=== PATIENT | female | born 1945 | race Caucasian/White ===

== ENCOUNTER 2016-07-23 16:16 | Outpatient (CLI) | payer MEDICARE ==
[2016-07-23 16:23] LABS: #Basophils 0.1 thou/uL (0.0-0.2); #Eosinphils 0.2 thou/uL (0.0-0.7); #Lymphocytes 1.7 thou/uL (1.20-3.40); #Monocytes 0.3 thou/uL (0.11-0.59); #Neutrophils 2.7 thou/uL (1.40-6.50); %Basophils 1.1 % (0.0-1.0); %Eosinophils 4.6 % (0.0-10.0); %Lymphocytes 33.2 % (21.0-51.0); %Monocytes 6.5 % (0.0-10.0); %Neutrophils 54.6 % (42.0-75.0); Hemoglobin 10.6 g/dL (12.0-16.0); Mean Corpuscular HGB CONC 31.9 g/dL (32.0-36.0); Mean Corpuscular Hemoglobin 27.7 pg (27.0-31.0); Mean Platelet Volume 6.3 fL (7.4-10.4); Platelet Count 201 thou/uL (130-400); RBC Distribution Width 15.9 % (11.5-14.5); Red Blood Cell (RBC) Count 3.81 mill/uL (4.20-5.40)
[2016-07-23 16:38] LABS: ALT (SGPT) 8 U/L (8-55); AST (SGOT) 12 U/L (5-34); Albumin 3.6 g/dL (3.4-4.8); Alkaline Phosphatase 54 U/L (40-150); Anion Gap 13 mmol/L (10-20); BUN (Urea Nitrogen) 10 mg/dL (9.8-20.1); Bilirubin, Total 0.4 mg/dL (0.2-1.2); Calc. Creatinine Clearance 0 mL/min (70-130); Calcium 9.5 mg/dL (7.8-10.44); Carbon Dioxide 30 mmol/L (23-31); Chloride 98 mmol/L (98-107); Estimated GFR-MDRD 75; Globulin 3.2 g/dL (2.4-3.5); Glucose 119 mg/dL (83-110); Lipase 19 U/L (8-78); Potassium 3.3 mmol/L (3.5-5.1); Protein, Total 6.8 g/dL (5.8-8.1); Sodium 138 mmol/L (136-145)
== END 2016-07-23 16:17 | disposition home or self-care (01) ==
LOC: HPCALD 16:16
PROVIDERS: ATTEND Family Medicine
DX: K92.0 Hematemesis (principal)
CPT/HCPCS: 36415; 80053; 83690; 85025

== ENCOUNTER 2016-07-23 16:36 | Outpatient (CLI) | payer MEDICARE ==
--- NOTE | 2016-07-23 23:15 | RAD ---
CHEST TWO VIEWS 07/23/16 Comparison is made with a 03/28/11 study. A large lobulated right perihilar mass is present. It measures approximately 12 x 8.9 cm. It was not present in 2012. Given the patient's prior history of breast cancer and colon cancer, metastatic di sease would be the most likely diagnosis. A primary lung tumor would be the next most likely concern . The lungs are otherwise clear. The heart is borderline in size. There are no congestive findings o r pleural effusions. The trachea is midline. IMPRESSION: Large lobulated right hilar mass that is presumed to be neoplastic unless proven otherwise. A new fi nding since 2011. The findings discussed with Dr. Abad at 1655. A followup CT will define the scope of the mass bet ter but will not likely narrow the differential diagnosis. POS: HOME
== END 2016-07-23 16:37 | disposition home or self-care (01) ==
LOC: BURRAD 16:36
PROVIDERS: ATTEND Family Medicine
DX: R04.2 Hemoptysis (principal); R91.8 Other nonspecific abnormal finding of lung field
CPT/HCPCS: 36415; 71020; 80053; 83690; 85025

== ENCOUNTER 2016-07-24 08:03 | Outpatient (CLI) | payer MEDICARE ==
[2016-07-24] MEDS ORDERED: Iopamidol 370 76% 100 ML VIAL ONE (09:00)
--- NOTE | 2016-07-24 20:42 | CT ---
CT OF THE THORAX WITH CONTRAST 07/24/[address] of the chest was performed in response to a mass seen on a recent chest x-ray. Axial slice s were acquired, then coronal and sagittal reconstructions were done. There is a large solid mass in the base of the right upper lobe that measured about 8.5 x 7.7 cm in the axial plane. It compresses the right upper lobe bronchus. Pulmonary arterial branches running to the right upper lobe travel through this mass and help fed it. The margins of the mass are lobulate d. There does not appear to be significant mediastinal adenopathy, though this mass goes right up to the edge of the mediastinum. An additional finding on the study is a 3 cm spiculated mass in the left breast in the lower outer q uadrant, probably about 4 o'clock in position. There is a plane between it and the chest wall, thoug h the width is small. There is suggestion there may be a little skin thickening over the mass. No other pulmonary nodules were seen within the lungs. There are no lobar infiltrates or effusions. This was not done as a pulmonary angio protocol, but there were no gross defects in the major arteri al branches. There was no sign of aortic aneurysm or dissection. There is probably a little bit of c alcification in the left coronary system. There may be a little bit of mild left ventricular hypertr ophy. The vertebrae appeared intact with no sign of fracture or bony destruction. This study went a few sl ices into the upper abdomen. In that interval, no acute findings were encountered. IMPRESSION: Large lobulated solid mass in the right upper lobe with compression of the right upper lobe bronchus and encasing pulmonary arterial branches. Knowing the patient's clinical history and seeing a spicu lated mass in the left breast that is suspicious for neoplasia,I would wonder about the chest mass b eing metastatic disease. The chest mass is probably accessible via bronchoscopy. A slice or two even suggested there might be a small amount of mass protruding into the airway. Findings discussed with Dr. Abad at 0912 on 07/24/16. POS: HOME
== END 2016-07-24 08:04 | disposition home or self-care (01) ==
LOC: BURCT 08:03
PROVIDERS: ATTEND Family Medicine
DX: R22.2 Localized swelling, mass and lump, trunk (principal); R91.8 Other nonspecific abnormal finding of lung field
CPT/HCPCS: 71260

== ENCOUNTER 2016-10-25 11:10 | Outpatient (CLI) | payer MEDICARE, OTHER, BC ==
--- NOTE | 2016-10-25 14:27 | CT ---
HEAD CT WITH AND WITHOUT CONTRAST: Date: 10/25/16 CLINICAL HISTORY: Malignant neoplasm of the lung. Reference made to 08/09/[address] FINDINGS: Ventricular system is age-appropriate in size. There is no intracranial mass effect or midline shift . No enhancing intra-axial lesions are present. No osseous destructive lesion of the calvarium evide nt. IMPRESSION: No evidence of interval intracranial metastatic disease. POS: [facility]
--- NOTE | 2016-10-25 14:29 | CT ---
CT CHEST WITH IV CONTRAST: HISTORY: Right lung cancer. Restaging. COMPARISON: 07/24/16. FINDINGS: The large mass centered at the right hilum is again demonstrated. It is now 9.0 x 8.4 cm greatest d iameters where it was previously measured at 8.4 x 7.7 cm. There has been significant interval incr ease in peripheral atelectasis. Patchy infiltrate also projects into the anterior segment right upp er lobe. There is mild atelectasis within the left lung without focal mass apparent. There is calc ification in the arterial structures. Spiculated mass within the lateral aspect of the left breast is similar in appearance to the previous exam. The gallbladder is surgically absent. IMPRESSION: 1. Interval enlargement of the right hilar lung mass with worsening of peripheral atelectasis. 2. Left breast mass and other findings are otherwise stable. POS: [facility]
== END 2016-10-25 11:11 | disposition home or self-care (01) ==
LOC: BURCT 11:10
PROVIDERS: ATTEND Internal Medicine Hematology & Oncology
DX: C34.81 Malignant neoplasm of overlapping sites of right bronchus and lung (principal); C18.7 Malignant neoplasm of sigmoid colon; N18.2 Chronic kidney disease, stage 2 (mild); D63.1 Anemia in chronic kidney disease; J98.11 Atelectasis; N63 Unspecified lump in breast; R91.8 Other nonspecific abnormal finding of lung field; Z85.3 Personal history of malignant neoplasm of breast
CPT/HCPCS: 70470; 71260

== ENCOUNTER 2016-11-03 08:31 | Emergency (ER) | payer MEDICARE ==
[2016-11-03] MEDS ORDERED: Iopamidol 370 76% 100 ML VIAL ONE (09:00)
[2016-11-03 09:09] LABS: INR-International Normal Ratio 1.4; PTT 44.7 SEC (22.9-36.1); Prothrombin Time 17.7 SEC (12.0-14.7)
[2016-11-03 09:18] LABS: Band 3 % (5-11); Eosinophils 2 % (0-10); Hemoglobin 9.8 g/dL (12.0-16.0); Lymphocytes 10 % (21-51); MDiff Complete? YES; Mean Corpuscular HGB CONC 34.3 g/dL (32.0-36.0); Mean Corpuscular Hemoglobin 30.4 pg (27.0-31.0); Mean Corpuscular Volume 88.6 fl (81.0-99.0); Mean Platelet Volume 5.8 fL (7.4-10.4); Neutrophil 85 % (42-75); Platelet Count 183 thou/uL (130-400); RBC Distribution Width 14.2 % (11.5-14.5); Red Blood Cell (RBC) Count 3.21 mill/uL (4.20-5.40); Toxic Granulation SLIGHT; White Blood Cell (WBC) Count 10.1 thou/uL (4.8-10.8)
[2016-11-03 09:19] LABS: ALT (SGPT) 19 U/L (8-55); AST (SGOT) 18 U/L (5-34); Albumin 2.6 g/dL (3.4-4.8); Alkaline Phosphatase 90 U/L (40-150); Anion Gap 18 mmol/L (10-20); BUN (Urea Nitrogen) 16 mg/dL (9.8-20.1); Bilirubin, Total 0.8 mg/dL (0.2-1.2); CK (CPK) 20 U/L (29-168); Calc. Creatinine Clearance 0 mL/min (70-130); Calcium 8.8 mg/dL (7.8-10.44); Carbon Dioxide 32 mmol/L (23-31); Chloride 79 mmol/L (98-107); Estimated GFR-MDRD 70; Globulin 3.9 g/dL (2.4-3.5); Glucose 141 mg/dL (83-110); Protein, Total 6.5 g/dL (6.0-8.3); Sodium 126 mmol/L (136-145)
[2016-11-03 09:21] LABS: CKMB 0.5 ng/mL (0-6.6); Troponin I 0.027 ng/mL (< 0.028)
[2016-11-03 09:24] LABS: Potassium 2.6 mmol/L (3.5-5.1)
[2016-11-03 09:58] LABS: Bilirubin Negative (Negative); Blood, Urine Trace (Negative); Glucose, Urine (Dipstick) Negative (Negative); Leukocyte Negative (Negative); Nitrite Negative (Negative); Protein, Urine (Dipstick) 100 mg/dL (Neg-Trace); Urobilinogen 0.2 mg/dL (0.2-1.0); pH, Urine 5.5 (5.0-9.0)
[2016-11-03 10:03] LABS: Clarity Hazy (Clear)
[2016-11-03 10:04] LABS: Bacteria/HPF 1+ HPF (None Seen); Crystals/HPF 1+ AMORPH PHOS HPF (Negative); RBC/HPF 0-3 HPF (0-3); Squamous Epithelial 0-3 HPF (0-3); WBC/HPF 0-3 HPF (0-3)
--- NOTE | 2016-11-03 11:21 | CT ---
CT PULMONARY ANGIOGRAM WITH IV CONTRAST AND 3D MIP RECONSTRUCTIONS: Date: 11/03/16 PROVIDED CLINICAL HISTORY: Dyspnea. FINDINGS: Comparison made with the CT examinations dated 10/25/16 and 07/24/16. The heart, pericardium, and great vessels demonstrate an unchanged CT appearance. There is no eviden ce for central or segmental pulmonary embolus. Right perihilar soft tissue mass is redemonstrated. T here is interval development of air density within portions of this mass which may reflect cavitatio n or superimposed infection. There is extensive consolidation involving the right upper and right mi ddle lobes redemonstrated. The extent of the ground-glass opacity involving the right middle lobe is somewhat decreased as compared to the prior examination. Patchy somewhat nodular parenchymal opacit y is now present at the medial aspect of the superior segment of the right lower lobe. There is no evidence for pleural fluid or pneumothorax. The airway appears patent and of normal cedric eben. The visualized portions of the upper abdomen appear unchanged as compared to prior studies. Lef t-sided breast mass is redemonstrated. IMPRESSION: 1. No evidence for central or segmental pulmonary embolus. 2. Extensive parenchymal abnormality involving the right lung is redemonstrated, likely reflecting a combination of neoplasm and postobstructive pneumonitis. Development of air density within the frederick tral mass may reflect necrosis or superimposed infection. POS: [facility]
[2016-11-03] MEDS ORDERED: Piperacillin/Tazobactam 3.375 GM VIAL ONE (11:28)
[2016-11-03] MEDS ORDERED: Sodium Chloride 0.9% 100 ML ONE (11:28)
[2016-11-03] MEDS ORDERED: Potassium Chloride 20 MEQ TAB ONE (11:28)
== END 2016-11-03 11:57 | disposition short-term general hospital (02) ==
LOC: BURERS 08:31
DX: J18.9 Pneumonia, unspecified organism (principal); E87.6 Hypokalemia; E11.9 Type 2 diabetes mellitus without complications; E78.5 Hyperlipidemia, unspecified; I10 Essential (primary) hypertension
CPT/HCPCS: 36415; 51701; 71275; 80053; 81003; 81015; 82550; 82553; 83880; 84484; 85025; 85610; 85730; 87040; 93005; 94640; 94760; 96365; 96375; A4216; A4353; J2543; J7050; J7620

== ENCOUNTER 2017-04-11 10:04 | Inpatient (IN) | payer MEDICARE, OTHER ==
[2017-04-11 11:01] LABS: #Lymphocytes 0.7 thou/uL (1.20-3.40); #Monocytes 0.3 thou/uL (0.11-0.59); #Neutrophils 4.1 thou/uL (1.40-6.50); %Basophils 0.8 % (0.0-1.0); %Eosinophils 0.2 % (0.0-10.0); %Lymphocytes 13.6 % (21.0-51.0); %Monocytes 5.8 % (0.0-10.0); %Neutrophils 79.6 % (42.0-75.0); Hemoglobin 11.4 g/dL (12.0-16.0); Mean Corpuscular HGB CONC 33.4 g/dL (32.0-36.0); Mean Corpuscular Hemoglobin 27.9 pg (27.0-31.0); Mean Corpuscular Volume 83.4 fl (81.0-99.0); Mean Platelet Volume 5.5 fL (7.4-10.4); Platelet Count 136 thou/uL (130-400); White Blood Cell (WBC) Count 5.2 thou/uL (4.8-10.8)
[2017-04-11 11:03] LABS: ALT (SGPT) 18 U/L (8-55); AST (SGOT) 23 U/L (5-34); Albumin 3.8 g/dL (3.4-4.8); Alkaline Phosphatase 80 U/L (40-150); Anion Gap 18 mmol/L (10-20); BUN (Urea Nitrogen) 36 mg/dL (9.8-20.1); Bilirubin, Total 0.5 mg/dL (0.2-1.2); Calc. Creatinine Clearance 0 mL/min (70-130); Calcium 9.7 mg/dL (7.8-10.44); Carbon Dioxide 23 mmol/L (23-31); Chloride 92 mmol/L (98-107); Estimated GFR-MDRD 42; Globulin 3.9 g/dL (2.4-3.5); Glucose 178 mg/dL (83-110); Potassium 4.4 mmol/L (3.5-5.1); Protein, Total 7.7 g/dL (6.0-8.3); Sodium 129 mmol/L (136-145)
[2017-04-11 11:05] LABS: CKMB 2.9 ng/mL (0-6.6)
[2017-04-11] MEDS ORDERED: Acetaminophen 325 MG TAB PO PRN (12:36)
[2017-04-11] MEDS ORDERED: Ondansetron ODT 4 MG TAB SL PRN (12:36)
[2017-04-11] MEDS ORDERED: Ondansetron HCl/PF 4 MG/2 ML Vial IVP PRN (12:36)
[2017-04-11 12:45] VITALS: BMI 23.2
[2017-04-11] MEDS ORDERED: FLU VACC TS2017-18 (>65YR) 0.5 ML SYRINGE IM ONE (13:30)
--- NOTE | 2017-04-11 14:15 | RAD ---
RADIOGRAPH CHEST 1 VIEW: Date: 04/11/17 Time: 1024 HOURS HISTORY: 72-year-old female with dyspnea. COMPARISON: 10/01/16. FINDINGS: The previous radiograph from last year demonstrated a large right upper lobe opacity contiguous with the right hilum, representing a right upper lobe primary lung cancer, with adjacent postobstructive p neumonitis of much of the right upper lobe posteriorly. This entire complex is still present, but sma ll portions of aerated lung have now appeared within this large complex, indicating either improvemen t in the neoplastic tumor size, or improvement in the postobstructive pneumonitis, or perhaps a combi nation of both. A significant amount of opacity remains. Again noted is the right subclavian implanta ble vascular access port with distal tip in the SVC. No cardiomegaly. No pulmonary edema. No pneumoth orax. Lateral costophrenic angles are not effaced. Multiple surgical clips at the left axilla. IMPRESSION: 1. Large right perihilar and right upper lobe primary lung cancer with adjacent large region of post obstructive pneumonitis, shows interval improvement since last year's radiograph. 2. Status post left lumpectomy and left axillary lymph node dissection. 3. Implantable vascular access port. 4. No new process identified. MATEO [] POS: [facility]
[2017-04-11 17:02] LABS: Troponin I 0.145 ng/mL (< 0.028)
[2017-04-11] MEDS ORDERED: Dextrose 50% Abboject 50 ML SYRINGE SLOW IVP PRN (18:05)
[2017-04-11] MEDS ORDERED: HumaLOG 300 UNITS/3 ML VIAL SC PRN ×2 (18:05)
[2017-04-11] MEDS ORDERED: Dextrose 5% in Water 1,000 ML IV PRN (18:05)
[2017-04-11] MEDS: cloNIDine 0.1 MG TAB PO SCH (22:05)
[2017-04-11] MEDS: Metoprolol Tartrate 25 MG TAB PO SCH (22:05)
[2017-04-11] MEDS: Magnesium Oxide 400 MG TAB PO SCH (22:05)
[2017-04-11 23:01] LABS: Glucose 211 mg/dL (83-110)
[2017-04-11 23:08] LABS: Troponin I 0.126 ng/mL (< 0.028)
[2017-04-12 06:28] LABS: Anion Gap 19 mmol/L (10-20); BUN (Urea Nitrogen) 33 mg/dL (9.8-20.1); Calc. Creatinine Clearance 40 mL/min (70-130); Calcium 9.8 mg/dL (7.8-10.44); Carbon Dioxide 21 mmol/L (23-31); Chloride 94 mmol/L (98-107); Estimated GFR-MDRD 45; Glucose 119 mg/dL (83-110); Potassium 4.1 mmol/L (3.5-5.1); Sodium 130 mmol/L (136-145)
[2017-04-12 06:30] LABS: #Lymphocytes 0.7 thou/uL (1.20-3.40); #Monocytes 0.4 thou/uL (0.11-0.59); #Neutrophils 2.5 thou/uL (1.40-6.50); %Basophils 1.2 % (0.0-1.0); %Eosinophils 0.2 % (0.0-10.0); %Lymphocytes 18.1 % (21.0-51.0); %Monocytes 12.2 % (0.0-10.0); %Neutrophils 68.3 % (42.0-75.0); Band 5 % (5-11); Eosinophils 1 % (0-10); Hemoglobin 10.4 g/dL (12.0-16.0); Lymphocytes 18 % (21-51); MDiff Complete? YES; Mean Corpuscular HGB CONC 33.2 g/dL (32.0-36.0); Mean Corpuscular Hemoglobin 27.8 pg (27.0-31.0); Mean Corpuscular Volume 83.7 fl (81.0-99.0); Mean Platelet Volume 6.1 fL (7.4-10.4); Monocytes 11 % (0-10); Neutrophil 65 % (42-75); PLT Morphology Comment Appears Decreased; Platelet Count 126 thou/uL (130-400); RBC Morphology Normal; Red Blood Cell (RBC) Count 3.73 mill/uL (4.20-5.40); Small Platelets SLIGHT; White Blood Cell (WBC) Count 3.6 thou/uL (4.8-10.8)
[2017-04-12] MEDS: cloNIDine 0.1 MG TAB PO SCH ×2 (08:30→09:05)
[2017-04-12] MEDS ORDERED: Oseltamivir 75 MG CAP ONE (08:52)
[2017-04-12] MEDS ORDERED: Oseltamivir 75 MG CAP PO SCH (09:00)
[2017-04-12] MEDS ORDERED: Furosemide 20 MG TAB PO SCH (09:00)
[2017-04-12] MEDS ORDERED: PARoxetine 20 MG TAB PO SCH (09:00)
[2017-04-12] MEDS: Metoprolol Tartrate 25 MG TAB PO SCH (09:03)
[2017-04-12] MEDS: Magnesium Oxide 400 MG TAB PO SCH (09:06)
--- NOTE | 2017-04-12 11:06 | RAD ---
PORTABLE CHEST: Date: 04/12/17 An AP portable film at 0518 hours is compared to the 04/11/17 study. FINDINGS: There is still a dense right upper lobe infiltrate, though it is slightly less dense than yesterday. No new infiltrates are seen elsewhere. There is no congestive change in the vessels. The heart size i s stable. A right central line remains in place. IMPRESSION: Right upper lobe pneumonia, slightly less dense than yesterday. POS: HOME
[2017-04-12] MEDS ORDERED: Diltiazem 125 MG/25 ML ONE (11:58)
[2017-04-12] MEDS ORDERED: Sodium Chloride 0.9% 100 ML ONE (11:59)
[2017-04-12 16:17] VITALS: BP 136/65; TEMP 99.5
== END 2017-04-12 14:51 | disposition short-term general hospital (02) | DRG 194 ==
LOC: BURERS 10:04 → BURMED 11:35
PROVIDERS: ADMIT Family Medicine; ATTEND Family Medicine
DX: J11.00 Influenza due to unidentified influenza virus with unspecified type of pneumonia (principal); C34.90 Malignant neoplasm of unspecified part of unspecified bronchus or lung; I24.8 Other forms of acute ischemic heart disease; E11.9 Type 2 diabetes mellitus without complications; E78.5 Hyperlipidemia, unspecified; I10 Essential (primary) hypertension
CPT/HCPCS: 36415; 36416; 71045; 80053; 82553; 83880; 84484; 85025; 87040; 93005; 94640; 96365; A4216; J1956; J7050; J7620

== ENCOUNTER 2017-04-16 10:46 | Inpatient (IN) | payer MEDICARE, OTHER ==
[2017-04-16] MEDS ORDERED: Bisacodyl 5 MG TAB PO PRN (12:53)
[2017-04-16] MEDS: Dronedarone HCl 400 MG TAB PO SCH (18:09)
[2017-04-16] MEDS ORDERED: Oseltamivir 75 MG CAP ONE (21:43)
[2017-04-16] MEDS: Magnesium Oxide 400 MG TAB PO SCH (21:48)
[2017-04-16] MEDS: cloNIDine 0.1 MG TAB PO SCH (21:49)
[2017-04-16] MEDS: Metoprolol Tartrate 25 MG TAB PO SCH (21:50)
[2017-04-16] MEDS: Oseltamivir 75 MG CAP PO SCH (21:50)
[2017-04-17] MEDS ORDERED: Non-Formulary Item 1 EACH (Lisinopril [Zestril] 40 MG) PO SCH (09:00)
[2017-04-17] MEDS: Magnesium Oxide 400 MG TAB PO SCH ×2 (09:51→21:31)
[2017-04-17] MEDS: Lisinopril 20 MG TAB PO SCH (09:51)
[2017-04-17] MEDS: Metoprolol Tartrate 25 MG TAB PO SCH ×2 (09:51→21:32)
[2017-04-17] MEDS: Dronedarone HCl 400 MG TAB PO SCH ×2 (09:51→18:38)
[2017-04-17] MEDS: PARoxetine 20 MG TAB PO SCH (09:52)
[2017-04-17] MEDS: Oseltamivir 75 MG CAP PO SCH ×2 (09:53→21:32)
[2017-04-17] MEDS: Furosemide 20 MG TAB PO SCH (09:53)
[2017-04-17] MEDS: Aspirin 81 mg Enteric Coated Tablet PO SCH (09:53)
[2017-04-17] MEDS: metFORMIN XR 500 MG TAB PO SCH (09:53)
[2017-04-17] MEDS: Acetaminophen 325 MG TAB PO PRN (10:02)
[2017-04-17] MEDS: cloNIDine 0.1 MG TAB PO SCH ×2 (11:24→21:32)
[2017-04-17] MEDS ORDERED: FLU VACC TS2017-18 (>65YR) 0.5 ML SYRINGE IM ONE (21:00)
[2017-04-18] MEDS: Acetaminophen 325 MG TAB PO PRN ×2 (03:16→19:57)
[2017-04-18] MEDS: Furosemide 20 MG TAB PO SCH (10:52)
[2017-04-18] MEDS: metFORMIN XR 500 MG TAB PO SCH (10:52)
[2017-04-18] MEDS: Dronedarone HCl 400 MG TAB PO SCH ×2 (10:52→17:14)
[2017-04-18] MEDS: Lisinopril 20 MG TAB PO SCH (10:53)
[2017-04-18] MEDS: Magnesium Oxide 400 MG TAB PO SCH ×2 (10:53→21:21)
[2017-04-18] MEDS: Metoprolol Tartrate 25 MG TAB PO SCH ×2 (10:53→21:21)
[2017-04-18] MEDS: Aspirin 81 mg Enteric Coated Tablet PO SCH (10:54)
[2017-04-18] MEDS: PARoxetine 20 MG TAB PO SCH (10:54)
[2017-04-18] MEDS: Oseltamivir 75 MG CAP PO SCH ×2 (10:55→21:23)
[2017-04-18] MEDS: cloNIDine 0.1 MG TAB PO SCH ×2 (11:27→21:20)
[2017-04-18] MEDS: Lorazepam 0.5 MG TAB PO PRN (21:21)
[2017-04-19] MEDS: Lisinopril 20 MG TAB PO SCH (09:18)
[2017-04-19] MEDS: cloNIDine 0.1 MG TAB PO SCH ×2 (09:19→20:20)
[2017-04-19] MEDS: Aspirin 81 mg Enteric Coated Tablet PO SCH (09:20)
[2017-04-19] MEDS: metFORMIN XR 500 MG TAB PO SCH (09:20)
[2017-04-19] MEDS: Dronedarone HCl 400 MG TAB PO SCH ×2 (09:20→17:16)
[2017-04-19] MEDS: PARoxetine 20 MG TAB PO SCH (09:21)
[2017-04-19] MEDS: Metoprolol Tartrate 25 MG TAB PO SCH ×2 (09:21→20:19)
[2017-04-19] MEDS: Furosemide 20 MG TAB PO SCH (09:21)
[2017-04-19] MEDS: Magnesium Oxide 400 MG TAB PO SCH ×2 (09:24→20:20)
[2017-04-19] MEDS: Oseltamivir 75 MG CAP PO SCH ×2 (09:25→20:20)
[2017-04-19] MEDS: Acetaminophen 325 MG TAB PO PRN (09:52)
[2017-04-20] MEDS: Oseltamivir 75 MG CAP PO SCH ×2 (09:06→23:20)
[2017-04-20] MEDS: Dronedarone HCl 400 MG TAB PO SCH ×2 (09:07→17:22)
[2017-04-20] MEDS: cloNIDine 0.1 MG TAB PO SCH ×2 (09:07→20:14)
[2017-04-20] MEDS: PARoxetine 20 MG TAB PO SCH (09:07)
[2017-04-20] MEDS: Magnesium Oxide 400 MG TAB PO SCH ×2 (09:07→20:17)
[2017-04-20] MEDS: Furosemide 20 MG TAB PO SCH (09:08)
[2017-04-20] MEDS: Lisinopril 20 MG TAB PO SCH (09:08)
[2017-04-20] MEDS: Aspirin 81 mg Enteric Coated Tablet PO SCH (09:08)
[2017-04-20] MEDS: Metoprolol Tartrate 25 MG TAB PO SCH ×2 (09:08→20:17)
[2017-04-20] MEDS: metFORMIN XR 500 MG TAB PO SCH (09:09)
[2017-04-20] MEDS: Acetaminophen 325 MG TAB PO PRN (20:17)
[2017-04-20] MEDS: Lorazepam 0.5 MG TAB PO PRN (20:17)
[2017-04-20] MEDS ORDERED: Oseltamivir 75 MG CAP ONE (23:17)
[2017-04-21] MEDS: metFORMIN XR 500 MG TAB PO SCH (09:22)
[2017-04-21] MEDS: Metoprolol Tartrate 25 MG TAB PO SCH ×2 (09:22→20:33)
[2017-04-21] MEDS: Furosemide 20 MG TAB PO SCH (09:22)
[2017-04-21] MEDS: Lorazepam 0.5 MG TAB PO PRN ×2 (09:22→21:02)
[2017-04-21] MEDS: Magnesium Oxide 400 MG TAB PO SCH ×2 (09:22→20:33)
[2017-04-21] MEDS: Aspirin 81 mg Enteric Coated Tablet PO SCH (09:23)
[2017-04-21] MEDS: cloNIDine 0.1 MG TAB PO SCH ×2 (09:23→20:33)
[2017-04-21] MEDS: PARoxetine 20 MG TAB PO SCH (09:23)
[2017-04-21] MEDS: Dronedarone HCl 400 MG TAB PO SCH ×2 (09:27→17:32)
[2017-04-21] MEDS: Lisinopril 20 MG TAB PO SCH (09:27)
[2017-04-21] MEDS: Oseltamivir 75 MG CAP PO SCH (11:24)
[2017-04-21] MEDS: guaiFENesin ER 600 MG TAB PO SCH (20:33)
[2017-04-21] MEDS: Acetaminophen 325 MG TAB PO PRN (21:02)
[2017-04-22] MEDS: Dronedarone HCl 400 MG TAB PO SCH ×2 (08:56→17:27)
[2017-04-22] MEDS: Metoprolol Tartrate 25 MG TAB PO SCH ×2 (08:56→20:56)
[2017-04-22] MEDS: guaiFENesin ER 600 MG TAB PO SCH ×2 (08:57→20:55)
[2017-04-22] MEDS: Furosemide 20 MG TAB PO SCH (08:57)
[2017-04-22] MEDS: Lisinopril 20 MG TAB PO SCH (08:58)
[2017-04-22] MEDS: metFORMIN XR 500 MG TAB PO SCH (09:00)
[2017-04-22] MEDS: Magnesium Oxide 400 MG TAB PO SCH ×2 (09:00→20:55)
[2017-04-22] MEDS: cloNIDine 0.1 MG TAB PO SCH ×2 (09:00→20:56)
[2017-04-22] MEDS: Aspirin 81 mg Enteric Coated Tablet PO SCH (09:00)
[2017-04-22] MEDS: PARoxetine 20 MG TAB PO SCH (09:00)
[2017-04-22] MEDS: Lorazepam 0.5 MG TAB PO PRN ×2 (09:01→20:56)
[2017-04-23 05:14] VITALS: BMI 10.6
[2017-04-23] MEDS: PARoxetine 20 MG TAB PO SCH (08:31)
[2017-04-23] MEDS: guaiFENesin ER 600 MG TAB PO SCH ×2 (08:31→21:25)
[2017-04-23] MEDS: Magnesium Oxide 400 MG TAB PO SCH ×2 (08:31→21:25)
[2017-04-23] MEDS: Furosemide 20 MG TAB PO SCH (08:31)
[2017-04-23] MEDS: Metoprolol Tartrate 25 MG TAB PO SCH ×2 (08:32→21:30)
[2017-04-23] MEDS: Dronedarone HCl 400 MG TAB PO SCH ×2 (08:32→16:50)
[2017-04-23] MEDS: metFORMIN XR 500 MG TAB PO SCH (08:32)
[2017-04-23] MEDS: Aspirin 81 mg Enteric Coated Tablet PO SCH (08:32)
[2017-04-23] MEDS: Lisinopril 20 MG TAB PO SCH (08:32)
[2017-04-23] MEDS: cloNIDine 0.1 MG TAB PO SCH ×2 (08:33→21:25)
[2017-04-24] MEDS: guaiFENesin ER 600 MG TAB PO SCH ×2 (09:47→21:17)
[2017-04-24] MEDS: PARoxetine 20 MG TAB PO SCH (09:47)
[2017-04-24] MEDS: Aspirin 81 mg Enteric Coated Tablet PO SCH (09:47)
[2017-04-24] MEDS: Furosemide 20 MG TAB PO SCH (09:47)
[2017-04-24] MEDS: Magnesium Oxide 400 MG TAB PO SCH ×2 (09:48→21:20)
[2017-04-24] MEDS: cloNIDine 0.1 MG TAB PO SCH ×2 (09:48→21:20)
[2017-04-24] MEDS: Lisinopril 20 MG TAB PO SCH (09:49)
[2017-04-24] MEDS: metFORMIN XR 500 MG TAB PO SCH (09:50)
[2017-04-24] MEDS: Metoprolol Tartrate 25 MG TAB PO SCH ×2 (09:50→21:20)
[2017-04-24] MEDS: Dronedarone HCl 400 MG TAB PO SCH ×2 (09:51→17:45)
[2017-04-24] MEDS: Lorazepam 0.5 MG TAB PO PRN (21:17)
[2017-04-24] MEDS: Acetaminophen 325 MG TAB PO PRN (21:20)
[2017-04-25] MEDS: Dronedarone HCl 400 MG TAB PO SCH ×2 (09:16→17:54)
[2017-04-25] MEDS: metFORMIN XR 500 MG TAB PO SCH (09:17)
[2017-04-25] MEDS: Furosemide 20 MG TAB PO SCH (09:17)
[2017-04-25] MEDS: Aspirin 81 mg Enteric Coated Tablet PO SCH (09:17)
[2017-04-25] MEDS: PARoxetine 20 MG TAB PO SCH (09:18)
[2017-04-25] MEDS: guaiFENesin ER 600 MG TAB PO SCH ×2 (09:18→20:51)
[2017-04-25] MEDS: Magnesium Oxide 400 MG TAB PO SCH ×2 (09:18→20:51)
[2017-04-25] MEDS: Lisinopril 20 MG TAB PO SCH (09:19)
[2017-04-25] MEDS: Metoprolol Tartrate 25 MG TAB PO SCH ×2 (09:19→20:50)
[2017-04-25] MEDS: cloNIDine 0.1 MG TAB PO SCH ×2 (09:20→20:50)
[2017-04-25] MEDS: Lorazepam 0.5 MG TAB PO PRN (20:50)
[2017-04-25] MEDS: Acetaminophen 325 MG TAB PO PRN (20:50)
[2017-04-26] MEDS: Dronedarone HCl 400 MG TAB PO SCH ×2 (09:28→17:02)
[2017-04-26] MEDS: guaiFENesin ER 600 MG TAB PO SCH ×2 (09:28→20:48)
[2017-04-26] MEDS: PARoxetine 20 MG TAB PO SCH (09:28)
[2017-04-26] MEDS: Lisinopril 20 MG TAB PO SCH (09:28)
[2017-04-26] MEDS: metFORMIN XR 500 MG TAB PO SCH (09:29)
[2017-04-26] MEDS: Metoprolol Tartrate 25 MG TAB PO SCH ×2 (09:29→20:49)
[2017-04-26] MEDS: Aspirin 81 mg Enteric Coated Tablet PO SCH (09:30)
[2017-04-26] MEDS: cloNIDine 0.1 MG TAB PO SCH ×2 (09:30→20:50)
[2017-04-26] MEDS: Magnesium Oxide 400 MG TAB PO SCH ×2 (09:30→20:48)
[2017-04-26] MEDS: Furosemide 20 MG TAB PO SCH (09:30)
[2017-04-26] MEDS: Lorazepam 0.5 MG TAB PO PRN (20:48)
[2017-04-26] MEDS: Acetaminophen 325 MG TAB PO PRN (20:49)
[2017-04-27 06:29] VITALS: TEMP 98.1
[2017-04-27] MEDS: Metoprolol Tartrate 25 MG TAB PO SCH (09:29)
[2017-04-27] MEDS: Dronedarone HCl 400 MG TAB PO SCH (09:30)
[2017-04-27] MEDS: Magnesium Oxide 400 MG TAB PO SCH (09:30)
[2017-04-27] MEDS: Lisinopril 20 MG TAB PO SCH (09:30)
[2017-04-27] MEDS: metFORMIN XR 500 MG TAB PO SCH (09:33)
[2017-04-27] MEDS: Furosemide 20 MG TAB PO SCH (09:33)
[2017-04-27] MEDS: cloNIDine 0.1 MG TAB PO SCH (09:33)
[2017-04-27 09:34] VITALS: BP 140/65
[2017-04-27] MEDS: PARoxetine 20 MG TAB PO SCH (09:34)
[2017-04-27] MEDS: guaiFENesin ER 600 MG TAB PO SCH (09:34)
[2017-04-27] MEDS: Aspirin 81 mg Enteric Coated Tablet PO SCH (09:34)
== END 2017-04-27 11:35 | disposition home or self-care (01) | DRG 947 ==
LOC: BURMED 12:05
PROVIDERS: ADMIT Family Medicine; ATTEND Family Medicine
DX: R53.1 Weakness (principal); J96.01 Acute respiratory failure with hypoxia; J10.00 Influenza due to other identified influenza virus with unspecified type of pneumonia; I11.0 Hypertensive heart disease with heart failure; L89.151 Pressure ulcer of sacral region, stage 1; I48.91 Unspecified atrial fibrillation; E11.9 Type 2 diabetes mellitus without complications; I50.22 Chronic systolic (congestive) heart failure; E87.1 Hypo-osmolality and hyponatremia; E78.5 Hyperlipidemia, unspecified; Z85.118 Personal history of other malignant neoplasm of bronchus and lung; Z85.3 Personal history of malignant neoplasm of breast; Z85.038 Personal history of other malignant neoplasm of large intestine; Z88.2 Allergy status to sulfonamides; Z91.041 Radiographic dye allergy status; Z87.891 Personal history of nicotine dependence
CPT/HCPCS: 36416; 94640; G8978-GP-CJ; G8979-GP-CI; G8987-GO-CK; G8988-GO-CI; J7620

== ENCOUNTER 2017-07-10 13:23 | Outpatient (CLI) | payer MEDICARE, OTHER ==
--- NOTE | 2017-07-10 15:58 | RAD ---
CERVICAL SPINE FIVE VIEWS: Date: 07-10-17 FINDINGS: Flexion, extension, and neutral views were obtained, as well as AP and open mouth views. There is disc space narrowing at C5-6 and C6-7 with anterior osteophytes. With flexion of the cervica l spine there was no undue slippage of any vertebrae. Minimal 1-2 mm offsets are seen as would be exp ected, at each level. There is no abnormal motion between the dens and anterior arch of C1. The soft tissues are normal in thickness. IMPRESSION: 1. Degenerative changes, most prominent at C5-6 and C6-7. 2. No significant movement of vertebrae between flexion and extension. POS: HOME
== END 2017-07-10 13:24 | disposition home or self-care (01) ==
LOC: BURRAD 13:23
PROVIDERS: ATTEND Neurological Surgery
DX: M54.2 Cervicalgia (principal); M47.892 Other spondylosis, cervical region
CPT/HCPCS: 72050

== ENCOUNTER 2017-09-15 15:31 | Outpatient (CLI) | payer MEDICARE, OTHER ==
--- NOTE | 2017-09-15 16:29 | RAD ---
THORACIC SPINE TWO VIEWS: INDICATIONS: Mid thoracic pain. There is also a history of lung cancer in this patient. COMPARISON: Lateral chest exam from 07/23/2016. FINDINGS: There is now mild anterior wedging of three consecutive mid thoracic vertebrae, probably T7, T8, and T9. These wedge deformities have occurred since 07/23/2016. The anterior wedging is most pronounced at T9 with loss of anterior height estimated at 30% to 40% at this level. Anterior height loss at T 7 and T8 are estimated at 20% to 25%. The other thoracic vertebrae maintain height. No other interval change noted. POS: [facility]
== END 2017-09-15 15:32 | disposition home or self-care (01) ==
LOC: BURRAD 15:31
PROVIDERS: ATTEND Family Medicine
DX: M54.6 Pain in thoracic spine (principal)
CPT/HCPCS: 72070

== ENCOUNTER 2017-10-28 11:08 | Inpatient (IN) | payer MEDICARE, OTHER ==
[2017-10-28] MEDS ORDERED: Calcium Carbonate 500 MG ChewTAB PO PRN (14:10)
[2017-10-28] MEDS ORDERED: Milk Of Magnesia 30 ML UDCUP PO PRN (14:10)
[2017-10-28] MEDS ORDERED: Bisacodyl 10 MG SUPP PR PRN (14:10)
[2017-10-28] MEDS ORDERED: Dextrose 50% Abboject 50 ML SYRINGE SLOW IVP PRN (14:15)
[2017-10-28] MEDS ORDERED: Dextrose 5% in Water 1,000 ML IV PRN (14:15)
[2017-10-28] MEDS ORDERED: HumaLOG 300 UNITS/3 ML VIAL SC PRN ×2 (14:15)
[2017-10-28 14:50] VITALS: BMI 23.2
[2017-10-28 14:52] LABS: #Basophils 0.1 thou/uL (0.0-0.2); #Eosinphils 0.1 thou/uL (0.0-0.7); #Lymphocytes 0.8 thou/uL (1.20-3.40); #Monocytes 0.4 thou/uL (0.11-0.59); #Neutrophils 4.4 thou/uL (1.40-6.50); %Basophils 1.3 % (0.0-1.0); %Eosinophils 1.2 % (0.0-10.0); %Lymphocytes 14.2 % (21.0-51.0); %Monocytes 7.4 % (0.0-10.0); Hemoglobin 10.5 g/dL (12.0-16.0); Mean Corpuscular HGB CONC 35.1 g/dL (32.0-36.0); Mean Corpuscular Hemoglobin 28.2 pg (27.0-31.0); Mean Corpuscular Volume 80.4 fL (78.0-98.0); Platelet Count 185 thou/uL (130-400); RBC Distribution Width 13.3 % (11.5-14.5); Red Blood Cell (RBC) Count 3.71 mill/uL (4.20-5.40); White Blood Cell (WBC) Count 5.8 thou/uL (4.8-10.8)
[2017-10-28 15:10] LABS: ALT (SGPT) 9 U/L (8-55); AST (SGOT) 14 U/L (5-34); Alkaline Phosphatase 68 U/L (40-150); Anion Gap 16 mmol/L (10-20); BUN (Urea Nitrogen) 14 mg/dL (9.8-20.1); Bilirubin, Total 0.4 mg/dL (0.2-1.2); Calc. Creatinine Clearance 46 mL/min (70-130); Carbon Dioxide 18 mmol/L (23-31); Chloride 102 mmol/L (98-107); Estimated GFR-MDRD 52; Globulin 3.4 g/dL (2.4-3.5); Glucose 125 mg/dL (83-110); Potassium 5.2 mmol/L (3.5-5.1); Protein, Total 7.4 g/dL (6.0-8.3); Sodium 131 mmol/L (136-145)
[2017-10-28 15:35] LABS: Clarity Clear (Clear); Glucose, Urine (Dipstick) Negative (Negative); Leukocyte Trace (Negative); Nitrite Negative (Negative); Protein, Urine (Dipstick) Trace mg/dL (Neg-Trace); Urobilinogen 0.2 mg/dL (0.2-1.0)
[2017-10-28 15:36] LABS: Bilirubin Negative (Negative); Blood, Urine Trace (Negative)
[2017-10-28 15:42] LABS: Bacteria/HPF Rare-Few HPF (None Seen); RBC/HPF 0-3 HPF (0-3); Squamous Epithelial 0-3 HPF (0-3); WBC/HPF 0-3 HPF (0-3)
[2017-10-28] MEDS ORDERED: Sodium Chloride 0.9% 10 ML ONE (16:08)
[2017-10-28] MEDS: Cefepime 1 GM in Sodium Chloride 0.9% 100 ML IVPB SCH (16:20)
[2017-10-28] MEDS ORDERED: traMADol HCl 50 MG TAB PO PRN (16:37)
[2017-10-28] MEDS: Magnesium Oxide 400 MG TAB PO SCH (17:35)
[2017-10-28] MEDS: metFORMIN XR 500 MG TAB PO SCH (17:36)
[2017-10-28] MEDS: Dronedarone HCl 400 MG TAB PO SCH (17:36)
[2017-10-28] MEDS ORDERED: Prevnar 13-Val Conj/PF 0.5 ML SYRINGE IM ONE (18:15)
[2017-10-28] MEDS: Lidocaine 5% Patch TD SCH (20:25)
[2017-10-28] MEDS: Simvastatin 20 MG TAB PO SCH (20:26)
[2017-10-28] MEDS: Metoprolol Tartrate 25 MG TAB PO SCH (20:26)
[2017-10-28] MEDS: cloNIDine 0.1 MG TAB PO SCH (20:27)
[2017-10-28] MEDS ORDERED: Famotidine 20 MG TAB PO SCH (21:00)
[2017-10-28] MEDS ORDERED: cloNIDine 0.1 MG TAB PO PRN (21:32)
[2017-10-28] MEDS ORDERED: cloNIDine 0.1 MG TAB PO SCH (21:45)
--- NOTE | 2017-10-28 22:18 | HP ---
CHIEF COMPLAINT: Multidrug-resistant urinary tract infection. HISTORY OF PRESENT ILLNESS: Ms. Gunderson is a 72-year-old female with past medical history o f recurrent urinary tract infections and non-small cell carcinoma of the lung, which is currently in remission followed by Dr. Blanca Golden, who went in for a checkup recently and complained of dysuria. Apparently, patient complained of dysuria at a previous visit and was treated with 2 weeks of cefdi caleb. During this most recent visit and urine collection, the patient was given another round of cefd inir, but I was contacted by Dr. Golden. Regarding her concern and we were going to see her in my [facility] for further recommendations. However, the final urine culture came back yesterday showing Pseu domonas resistant to all oral medications tested other than Cipro and Levaquin. The patient is aller gic to SULFA and takes Multaq, which contraindicates the use of fluoroquinolones. Therefore, the pat ient was recommended direct admission for IV antibiotic treatment. The patient says that she feels to be at her baseline. She does have some intermittent dyspnea due t o the presence of the lung mass, but per her last PET scan, is not growing/inactive. She has had jaylene e lower abdominal discomfort from [id number]. The patient has had intermittent dysuria. No gross hematuria. Denies fever. Denies voiding dysfunction. She feels her condition to be at her baseline with some dyspnea at rest but does not require oxygen. She does have a chronic cough. Her most recent PET scan showed inactivity, but her symptoms are due to the presence of the mass. She also had a recent compression fracture and underwent kyphoplasty approximately 2 weeks ago with Weston Leal. PAST MEDICAL HISTORY: 1. Non-small cell carcinoma of the lung on the right. 2. Left breast cancer, T2 N3 M0, triple negative, status post chemo and radiation in 2009. 3. Hypertension. 4. Anxiety. 5. Adenocarcinoma of sigmoid colon, T3 N0 M0. 6. Type 2 diabetes. 7. Hyperlipidemia. 8. Recurrent urinary tract infections. 9. Microalbuminuria. 10. Iron-deficiency anemia. 11. Paroxysmal atrial fibrillation, not a candidate for anticoagulation. 12. Systolic congestive heart failure. 13. Moderate aortic regurgitation. 14. Anemia of chronic disease. PAST SURGICAL HISTORY: 1. Cholecystectomy, 2006. 2. Hysterectomy, 1988. 3. Left breast lumpectomy and axillary node dissection, 07/2010. 4. Laparoscopic right hemicolectomy for severe appendicitis, 12/2010. 5. Laparoscopic low-anterior resection for colon cancer, 03/2011. 6. Kyphoplasty, 10/2017, Dr. Leal. ALLERGIES: IODINATED CONTRAST, SULFA. SOCIAL HISTORY: Nonsmoker. Denies alcohol or illicit drug use. Patient lives alone in [place], s a very active [id number] who lives here locally and daughter who lives within a couple of hour s of her. FAMILY HISTORY: Her father is and had a history of diabetes. She had a younger brother wit h brain tumor, older brother with chronic anemia, and a daughter who had cervical cancer. CURRENT MEDICATIONS: 1. Lidoderm 5% patch 1 patch q.12 hours p.r.n., May apply it 3 at a time. 2. Paroxetine 20 mg 1 p.o. daily. 3. Lisinopril 40 mg one p.o. daily. 4. Metformin ER 500 mg 4 p.o. daily with evening meal. 5. Tramadol 50 mg 1 p.o. q.6 hours p.r.n. pain. 6. Metoprolol 50 mg 1 p.o. b.i.d. 7. Lovastatin 20 mg 1 p.o. daily. 8. Prilosec OTC 20 mg p.o. daily. 9. Potassium chloride ER 20 mEq p.o. daily. 10. Clonidine 0.1 mg p.o. b.i.d. 11. Multaq 400 mg 1 p.o. b.i.d. 12. Lasix 40 mg p.o. daily. 13. DuoNeb 1 inhalation 4 times daily p.r.n. REVIEW OF SYSTEMS: General: Patient denies fever. She has some fatigue at baseline, but any increa se as of late. Denies any focal weakness. HEENT: Denies vision changes, ear pain, rhinorrhea, sore throat. Cardiovascular: Denies chest pain, palpitations, orthopnea, or PND. Respiratory: Dyspnea , non-O2 requiring with productive cough in the a.m. No hemoptysis. Gastrointestinal: Denies nause a, vomiting, diarrhea, constipation, abdominal pain. Genitourinary: Positive dysuria. Denies gross hematuria. No incomplete emptying symptoms. Intermittent low volume urinary incontinence at [facility]. Hematologic: Denies easy bleeding or bruising. Lymphatic: Denies swelling. PHYSICAL EXAMINATION: VITAL SIGNS: Temperature 97.7, heart rate 56, respirations 22, O2 sat 96% on room air, blood pressur e 193/76. GENERAL: Well-developed, thin female in no acute distress. Alert and oriented x3. HEENT: Normocephalic, atraumatic. Pupils equal, round, reactive to light and accommodation. Extrao cular muscles intact. Nares are patent without discharge. Tongue protrudes in the midline. NECK: Supple without lymphadenopathy, thyromegaly, JVD, or bruit. HEART: Regular rate and rhythm with distant heart sounds. LUNGS: Coarse breath sounds in all 4 gloria. No wheezing or crackles. Slightly increased work of b reathing and an occasional cough. ABDOMEN: Positive bowel sounds in all four quadrants. Soft, nontender, nondistended. No masses, gu arding, or rebound tenderness. EXTREMITIES: No cyanosis, clubbing, edema. NEUROLOGIC: Cranial nerves II-XII grossly intact. No focal deficits. LABORATORY DATA: White blood cell count 5.8, hemoglobin 10.5, hematocrit 29.9 with normal MCV, MCH, MCHC, platelets 185. Sodium 131, potassium 5.2, chloride 102, bicarb 18, BUN 14, creatinine 1.04, gl ucose 125, calcium 9.0. LFTs normal. Urinalysis significant for trace blood and trace leukocyte est erase, no wbc/rbc or squamous epithelial cells. Rare few bacteria. Blood cultures x2 are pending. Urine culture from 10/21/2017 shows Pseudomonas greater than 100,000, sensitive to AMIKACIN, CEFEPIME , CEFTAZIDIME, CIPRO, GENTAMICIN, LEVOFLOXACIN, MEROPENEM, ZOSYN, TOBRAMYCIN. ASSESSMENT AND PLAN: 1. Multidrug resistant urinary tract infection, Pseudomonas. Patient has had intermittent symptoms and is now having Pseudomonas in the urine. She has already been treated with a round of cefdinir as an outpatient. Urinalysis has been recollected and we will repeat a urine culture. I have started her on cefepime 1 gram q.12 hours for now pending those culture results. We will perform blood cultu res x2. We will repeat a CBC and a basic metabolic profile in the morning. It is possible, then aft er talking with Dr. Stark, who have put a call into the patient might be a candidate to get off th e Multaq, in which case we could use Cipro or Levaquin. The better case scenario would be if her rep eat culture was negative since her most recent urinalysis today actually looks better than in the out patient setting. 2. Hyperkalemia. I am holding the patient's potassium for now. 3. Hypertension. Patient's blood pressure is elevated, that she really does not want to be here in the hospital. We will continue her on an antihypertensive regimen and give her clonidine p.r.n. 4. Non-small cell lung cancer. This mass is present but is currently inactive. We will touch base with her oncologist on a p.r.n. basis. We will give O2 p.r.n. Should she have problems with her O2 sat. She is fine on room air at this point. We will continue DuoNeb p.r.n. 5. Hyperlipidemia. Patient will be continued on her statin therapy. 6. Type 2 diabetes. Patient will have Accu-Cheks q.a.c. and at bedtime and we will put her on a mil d and bedtime correction algorithm with Humalog. 7. Normocytic anemia. This is chronic and unchanged. 8. Paroxysmal atrial fibrillation. We will continue the patient on Multaq for now. Again, I have a call into Dr. Stark requesting his advice regarding this medicine going forward. She is not a ca ndidate for anticoagulation. 9. Prophylaxis. Patient's PPI will be continued and sequential compression devices will be placed. 10. Code status. Patient desires FULL CODE status at this time.
[2017-10-29] MEDS: Cefepime 1 GM in Sodium Chloride 0.9% 100 ML IVPB SCH ×2 (03:51→15:40)
[2017-10-29 05:24] LABS: #Basophils 0.1 thou/uL (0.0-0.2); #Eosinphils 0.1 thou/uL (0.0-0.7); #Lymphocytes 0.9 thou/uL (1.20-3.40); #Monocytes 0.4 thou/uL (0.11-0.59); #Neutrophils 2.9 thou/uL (1.40-6.50); %Basophils 2.1 % (0.0-1.0); %Eosinophils 2.4 % (0.0-10.0); %Lymphocytes 19.5 % (21.0-51.0); %Monocytes 9.2 % (0.0-10.0); %Neutrophils 66.8 % (42.0-75.0); Hemoglobin 9.6 g/dL (12.0-16.0); Mean Corpuscular HGB CONC 36.4 g/dL (32.0-36.0); Mean Corpuscular Hemoglobin 28.6 pg (27.0-31.0); Mean Corpuscular Volume 78.5 fL (78.0-98.0); Mean Platelet Volume 5.5 fL (7.4-10.4); Platelet Count 151 thou/uL (130-400); RBC Distribution Width 13.3 % (11.5-14.5); Red Blood Cell (RBC) Count 3.34 mill/uL (4.20-5.40); White Blood Cell (WBC) Count 4.4 thou/uL (4.8-10.8)
[2017-10-29] MEDS: Lidocaine Patch Removal 1 EACH TOP SCH (05:54)
[2017-10-29 06:04] LABS: Anion Gap 11 mmol/L (10-20); BUN (Urea Nitrogen) 16 mg/dL (9.8-20.1); Calc. Creatinine Clearance 51 mL/min (70-130); Calcium 8.5 mg/dL (7.8-10.44); Carbon Dioxide 21 mmol/L (23-31); Chloride 104 mmol/L (98-107); Estimated GFR-MDRD 59; Glucose 93 mg/dL (83-110); Potassium 5.1 mmol/L (3.5-5.1); Sodium 131 mmol/L (136-145)
[2017-10-29] MEDS ORDERED: Non-Formulary Item 1 EACH (Potassium Chloride [Potassium Chloride] 20 MEQ) PO SCH (09:00)
[2017-10-29] MEDS: PARoxetine 20 MG TAB PO SCH (09:31)
[2017-10-29] MEDS: Dronedarone HCl 400 MG TAB PO SCH ×2 (09:31→17:53)
[2017-10-29] MEDS: cloNIDine 0.1 MG TAB PO SCH ×2 (09:31→21:17)
[2017-10-29] MEDS: Lisinopril 20 MG TAB PO SCH (09:32)
[2017-10-29] MEDS: Magnesium Oxide 400 MG TAB PO SCH ×2 (09:32→17:53)
[2017-10-29] MEDS: Furosemide 20 MG TAB PO SCH (09:32)
[2017-10-29] MEDS: Metoprolol Tartrate 25 MG TAB PO SCH ×2 (09:33→21:18)
[2017-10-29] MEDS ORDERED: Amlodipine 5 MG TAB PO ONE (09:45)
[2017-10-29] MEDS: metFORMIN XR 500 MG TAB PO SCH (17:52)
[2017-10-29] MEDS: Lidocaine 5% Patch TD SCH (17:55)
[2017-10-29] MEDS: Simvastatin 20 MG TAB PO SCH (21:17)
[2017-10-29] MEDS: Lorazepam 0.5 MG TAB PO PRN (21:18)
[2017-10-30] MEDS: Cefepime 1 GM in Sodium Chloride 0.9% 100 ML IVPB SCH ×2 (03:49→15:43)
[2017-10-30] MEDS: Lidocaine Patch Removal 1 EACH TOP SCH (05:16)
[2017-10-30] MEDS: Metoprolol Tartrate 25 MG TAB PO SCH ×2 (09:34→21:17)
[2017-10-30] MEDS: PARoxetine 20 MG TAB PO SCH (09:35)
[2017-10-30] MEDS: Dronedarone HCl 400 MG TAB PO SCH ×2 (09:35→17:49)
[2017-10-30] MEDS: Furosemide 20 MG TAB PO SCH (09:35)
[2017-10-30] MEDS: Magnesium Oxide 400 MG TAB PO SCH ×2 (09:36→17:49)
[2017-10-30] MEDS: Lisinopril 20 MG TAB PO SCH (09:39)
[2017-10-30] MEDS: Amlodipine 5 MG TAB PO SCH (09:40)
[2017-10-30] MEDS: cloNIDine 0.1 MG TAB PO SCH ×2 (09:40→21:17)
[2017-10-30] MEDS: Acetaminophen 325 MG TAB PO PRN (11:46)
[2017-10-30] MEDS: Lidocaine 5% Patch TD SCH (17:47)
[2017-10-30] MEDS: metFORMIN XR 500 MG TAB PO SCH (17:48)
[2017-10-30] MEDS: Lorazepam 0.5 MG TAB PO PRN (21:16)
[2017-10-30] MEDS: Simvastatin 20 MG TAB PO SCH (21:16)
[2017-10-31] MEDS: Cefepime 1 GM in Sodium Chloride 0.9% 100 ML IVPB SCH (04:12)
[2017-10-31] MEDS: Lidocaine Patch Removal 1 EACH TOP SCH (06:10)
[2017-10-31] MEDS: Dronedarone HCl 400 MG TAB PO SCH (08:39)
[2017-10-31] MEDS: Metoprolol Tartrate 25 MG TAB PO SCH (08:40)
[2017-10-31] MEDS: Magnesium Oxide 400 MG TAB PO SCH (08:40)
[2017-10-31] MEDS: cloNIDine 0.1 MG TAB PO SCH (08:40)
[2017-10-31] MEDS: Furosemide 20 MG TAB PO SCH (08:41)
[2017-10-31] MEDS: Lisinopril 20 MG TAB PO SCH (08:42)
[2017-10-31] MEDS: PARoxetine 20 MG TAB PO SCH (08:42)
[2017-10-31] MEDS: Amlodipine 5 MG TAB PO SCH (08:43)
[2017-10-31] MEDS: Acetaminophen 325 MG TAB PO PRN (08:45)
[2017-10-31 13:03] VITALS: BP 140/95; TEMP 98.2
--- NOTE | 2017-10-31 13:31 | DIS ---
ADMISSION DIAGNOSES: 1. Symptomatic Pseudomonas urinary tract infection. 2. Hypertension. 3. Non-small cell lung cancer. 4. Paroxysmal atrial fibrillation. DISCHARGE DIAGNOSES: 1. Symptomatic Pseudomonas urinary tract infection. 2. Hypertension. 3. Non-small cell lung cancer. 4. Paroxysmal atrial fibrillation. ATTENDING PHYSICIAN: Dr. Paola Abad PROCEDURES: 1. CBC with white count from the day of admission 5.8, hemoglobin 10.5, hematocrit 29.9, platelets 1 85. 2. Chemistry profile from the day of admission significant for potassium of 5.2, sodium of 131. Thi s subsequently corrected to a potassium of 5.1 with holding potassium supplementation. The sodium of 131 is chronic over a greater than 1 year period. 3. Urinalysis on admission was significant for trace blood and trace leukocyte esterase as well as r are few bacteria. 4. Urine culture from the day of admission grew out Pseudomonas aeruginosa, pansensitive. 5. Blood culture x2 negative for growth at 48 hours. HISTORY AND PHYSICAL EXAMINATION: Please see dictated report from the date of admission. HOSPITAL COURSE: Ms. Gunderson is a 72-year-old female patient with non-small cell lung cance r followed by Dr. Blanca Goldne and a recent compression fracture status post kyphoplasty and a cervic al nerve ablation by Dr. Leal who in the outpatient setting over the past month and a half compl ained of dysuria. The patient had been treated for urinary tract infection by her oncologist with a 2-week course of cefdinir as this would not interact with her Multaq. At her most recent visit with Dr. Golden, a urinalysis was performed which grew out Pseudomonas aeruginosa that was pansensitive. However, the patient's Multaq therapy contraindicated the use of Cipro and Levaquin, which were the only oral agents that it could be treated with. This culture was performed on 10/21/2017. Dr. Meera johnson empirically treated Ms. Gunderson with another 2-week course of cefdinir and she had started that whe n we contacted her. She, however, was still symptomatic with intermittent dysuria. She had not been experiencing any fever. She had had some lower suprapubic discomfort from time to time. The decisi on was therefore made to admit the patient for IV antibiotic therapy. The patient upon admission was afebrile and did not have a leukocytosis. Her cultures were reperformed with results as per above. She was placed empirically on IV cefepime 1 gram q.12 hours. As her urine culture did again grow th e same organism, we will continue out a course of 7 days of this therapy and possibly even repeat her urine culture at the time before her discharge. On the date of discharge, she is feeling well. She denies any pain or dysuria. She has a history of non-small cell lung cancer. She was placed on DuoNeb q.i.d. while in the hospit al and her respiratory status actually seem to improve with less cough and less sputum production. The patient with a history of hypertension and was notably hypertensive during her hospital admission . We added amlodipine 5 mg daily, and we are giving her clonidine p.r.n. for SBP greater than 180. This seems to have improved and stabilized her blood pressure. We also thought there might be a bolivar le anxiety component to this as well, and we have ordered lorazepam p.r.n. History of paroxysmal atrial fibrillation. The patient has had at least 2 admissions once in 10/2016 and then again in the early spring of this year in which she had atrial fibrillation with rapid vent ricular response requiring IV rate control. She is not a candidate for anticoagulation and was place d on Multaq therapy last summer. She had discontinued this on her own and this was restarted early t his spring. Due to the fact that she still has this inactive, but present lung mass, it has been rec ommended that the patient stay on Multaq therapy going forward to maintain her rhythm control. DISPOSITION: Transfer to swing bed unit for 7-day course of IV antibiotics. CONDITION: Good. MEDICATIONS: 1. Acetaminophen 650 mg p.o. q.4. p.r.n. 2. DuoNeb 3 mL nebs q.i.d. scheduled. 3. Amlodipine 5 mg p.o. daily. 4. Dulcolax 10 mg MN q.24h. p.r.n. 5. Tums 1000 mg p.o. q.4h. p.r.n. 6. Cefepime 1 gram IV every 12 hours. 7. Catapres 0.1 mg p.o. b.i.d. 8. Catapres 0.1 mg p.o. b.i.d. p.r.n. SBP greater than 180 or DBP greater than 100. 9. Multaq 400 mg p.o. b.i.d. 10. Lasix 40 mg p.o. daily. 11. Glucagon 1 mg IM p.r.n. 12. Humalog sliding scale mild and bedtime algorithm with Accu-Cheks q.a.c. and at bedtime. 13. Lidoderm 5% patch transdermal q.24 hours, off for 12 hours. 14. Zestril 40 mg p.o. daily. 15. Ativan 0.5 mg p.o. q.4h. p.r.n. anxiety. 16. Milk of Magnesia 30 mL p.o. daily p.r.n. constipation. 17. Magnesium oxide 400 mg p.o. b.i.d. 18. Glucophage-XR 500 mg 4 p.o. q.p.m. 19. Lopressor 50 mg p.o. b.i.d. 20. Protonix 40 mg p.o. daily. 21. Paxil 20 mg p.o. daily. 22. Zocor 10 mg p.o. at bedtime. 23. Tramadol 50 mg p.o. q.i.d. p.r.n. pain. 24. Holding potassium chloride, secondary to hyperkalemia. DISPOSITION: The patient will follow up with me in the clinic approximately 10-14 days after her swi ng bed discharge.
== END 2017-10-31 13:07 | disposition swing bed (61) | DRG 690 ==
LOC: BURMED 13:20
PROVIDERS: ADMIT Family Medicine; ATTEND Family Medicine
DX: N39.0 Urinary tract infection, site not specified (principal); C34.91 Malignant neoplasm of unspecified part of right bronchus or lung; I50.22 Chronic systolic (congestive) heart failure; Z79.2 Long term (current) use of antibiotics; Z16.24 Resistance to multiple antibiotics; B96.5 Pseudomonas (aeruginosa) (mallei) (pseudomallei) as the cause of diseases classified elsewhere; Z88.2 Allergy status to sulfonamides; Z85.3 Personal history of malignant neoplasm of breast; E11.9 Type 2 diabetes mellitus without complications; I48.0 Paroxysmal atrial fibrillation; D50.9 Iron deficiency anemia, unspecified; E78.5 Hyperlipidemia, unspecified; F41.9 Anxiety disorder, unspecified; Z92.21 Personal history of antineoplastic chemotherapy; Z92.3 Personal history of irradiation; I11.0 Hypertensive heart disease with heart failure; D63.8 Anemia in other chronic diseases classified elsewhere; I35.1 Nonrheumatic aortic (valve) insufficiency; E87.5 Hyperkalemia; Z79.4 Long term (current) use of insulin
CPT/HCPCS: 36415; 36416; 80048; 80053; 81001; 85025; 87040; 87077; 87086; 87186; 90471; 90670; A4216; G0009; J0692; J7050; J7620

== ENCOUNTER 2017-10-31 13:16 | Inpatient (IN) | payer MEDICARE, OTHER ==
[2017-10-31] MEDS ORDERED: Bisacodyl 10 MG SUPP PR PRN (13:55)
[2017-10-31] MEDS ORDERED: Milk Of Magnesia 30 ML UDCUP PO PRN (13:56)
[2017-10-31] MEDS ORDERED: Calcium Carbonate 500 MG ChewTAB PO PRN (13:56)
[2017-10-31] MEDS ORDERED: Dextrose 50% Abboject 50 ML SYRINGE SLOW IVP PRN (13:57)
[2017-10-31] MEDS ORDERED: Dextrose 5% in Water 1,000 ML IV PRN (13:57)
[2017-10-31] MEDS ORDERED: HumaLOG 300 UNITS/3 ML VIAL SC PRN ×2 (13:58)
[2017-10-31] MEDS ORDERED: Lidocaine 5% Patch TD SCH ×2 (14:00→18:00)
[2017-10-31] MEDS ORDERED: traMADol HCl 50 MG TAB PO PRN (14:04)
[2017-10-31] MEDS ORDERED: cloNIDine 0.1 MG TAB PO PRN (14:05)
[2017-10-31] MEDS: Cefepime 1 GM in Sodium Chloride 0.9% 100 ML IVPB SCH (15:30)
[2017-10-31] MEDS: metFORMIN XR 500 MG TAB PO SCH (16:51)
[2017-10-31] MEDS: Dronedarone HCl 400 MG TAB PO SCH (16:52)
[2017-10-31] MEDS: Magnesium Oxide 400 MG TAB PO SCH (16:52)
[2017-10-31] MEDS: Metoprolol Tartrate 25 MG TAB PO SCH (20:17)
[2017-10-31] MEDS: Simvastatin 20 MG TAB PO SCH (20:17)
[2017-10-31] MEDS: Lorazepam 0.5 MG TAB PO PRN (20:18)
[2017-10-31] MEDS: cloNIDine 0.1 MG TAB PO SCH (20:18)
[2017-11-01] MEDS: Cefepime 1 GM in Sodium Chloride 0.9% 100 ML IVPB SCH ×2 (03:59→16:00)
[2017-11-01] MEDS ORDERED: Lidocaine Patch Removal 1 EACH TOP SCH (06:00)
[2017-11-01] MEDS: cloNIDine 0.1 MG TAB PO SCH ×2 (09:22→20:47)
[2017-11-01] MEDS: PARoxetine 20 MG TAB PO SCH (09:28)
[2017-11-01] MEDS: Dronedarone HCl 400 MG TAB PO SCH ×2 (09:28→18:25)
[2017-11-01] MEDS: Magnesium Oxide 400 MG TAB PO SCH ×2 (09:28→18:25)
[2017-11-01] MEDS: Furosemide 20 MG TAB PO SCH (09:29)
[2017-11-01] MEDS: Lisinopril 20 MG TAB PO SCH (09:29)
[2017-11-01] MEDS: Metoprolol Tartrate 25 MG TAB PO SCH ×2 (09:29→20:46)
[2017-11-01] MEDS: Amlodipine 5 MG TAB PO SCH (09:30)
[2017-11-01] MEDS: metFORMIN XR 500 MG TAB PO SCH (18:25)
[2017-11-01] MEDS: Lorazepam 0.5 MG TAB PO PRN (20:47)
[2017-11-01] MEDS: Simvastatin 20 MG TAB PO SCH (20:47)
[2017-11-02] MEDS: Cefepime 1 GM in Sodium Chloride 0.9% 100 ML IVPB SCH ×2 (04:04→15:50)
[2017-11-02] MEDS: Lisinopril 20 MG TAB PO SCH (09:25)
[2017-11-02] MEDS: PARoxetine 20 MG TAB PO SCH (09:30)
[2017-11-02] MEDS: Furosemide 20 MG TAB PO SCH (09:31)
[2017-11-02] MEDS: Amlodipine 5 MG TAB PO SCH (09:31)
[2017-11-02] MEDS: Metoprolol Tartrate 25 MG TAB PO SCH ×2 (09:31→21:01)
[2017-11-02] MEDS: Magnesium Oxide 400 MG TAB PO SCH ×2 (09:32→17:29)
[2017-11-02] MEDS: cloNIDine 0.1 MG TAB PO SCH ×2 (09:32→21:03)
[2017-11-02] MEDS: Dronedarone HCl 400 MG TAB PO SCH ×2 (09:33→17:29)
[2017-11-02] MEDS: Acetaminophen 325 MG TAB PO PRN (09:38)
[2017-11-02] MEDS: metFORMIN XR 500 MG TAB PO SCH (17:29)
[2017-11-02] MEDS: Simvastatin 20 MG TAB PO SCH (21:03)
[2017-11-02] MEDS: Lorazepam 0.5 MG TAB PO PRN (21:06)
[2017-11-02 23:50] VITALS: BMI 22.8
[2017-11-03] MEDS: Cefepime 1 GM in Sodium Chloride 0.9% 100 ML IVPB SCH ×2 (03:39→17:00)
[2017-11-03] MEDS: Magnesium Oxide 400 MG TAB PO SCH ×2 (08:24→17:01)
[2017-11-03] MEDS: Dronedarone HCl 400 MG TAB PO SCH ×2 (08:24→17:01)
[2017-11-03] MEDS: Furosemide 20 MG TAB PO SCH (09:08)
[2017-11-03] MEDS: Amlodipine 5 MG TAB PO SCH (09:08)
[2017-11-03] MEDS: Metoprolol Tartrate 25 MG TAB PO SCH ×2 (09:09→20:41)
[2017-11-03] MEDS: cloNIDine 0.1 MG TAB PO SCH ×2 (09:09→20:41)
[2017-11-03] MEDS: Lisinopril 20 MG TAB PO SCH (09:10)
[2017-11-03] MEDS: PARoxetine 20 MG TAB PO SCH (09:10)
[2017-11-03] MEDS: metFORMIN XR 500 MG TAB PO SCH (17:03)
[2017-11-03] MEDS: Lorazepam 0.5 MG TAB PO PRN (20:41)
[2017-11-03] MEDS: Simvastatin 20 MG TAB PO SCH (20:41)
[2017-11-04] MEDS: Cefepime 1 GM in Sodium Chloride 0.9% 100 ML IVPB SCH (04:07)
[2017-11-04 06:08] VITALS: BP 157/60; TEMP 97.7
[2017-11-04] MEDS: Metoprolol Tartrate 25 MG TAB PO SCH (09:18)
[2017-11-04] MEDS: Acetaminophen 325 MG TAB PO PRN (09:18)
[2017-11-04] MEDS: Magnesium Oxide 400 MG TAB PO SCH (09:18)
[2017-11-04] MEDS: Dronedarone HCl 400 MG TAB PO SCH (09:18)
[2017-11-04] MEDS: PARoxetine 20 MG TAB PO SCH (09:19)
[2017-11-04] MEDS: cloNIDine 0.1 MG TAB PO SCH (09:19)
[2017-11-04] MEDS: Lisinopril 20 MG TAB PO SCH (09:19)
[2017-11-04] MEDS: Furosemide 20 MG TAB PO SCH (09:19)
[2017-11-04] MEDS: Amlodipine 5 MG TAB PO SCH (09:20)
== END 2017-11-04 13:25 | disposition home or self-care (01) | DRG 690 ==
LOC: BURMED 13:16
PROVIDERS: ADMIT Family Medicine; ATTEND Family Medicine
DX: N39.0 Urinary tract infection, site not specified (principal); C34.91 Malignant neoplasm of unspecified part of right bronchus or lung; B96.5 Pseudomonas (aeruginosa) (mallei) (pseudomallei) as the cause of diseases classified elsewhere; I48.0 Paroxysmal atrial fibrillation; E11.9 Type 2 diabetes mellitus without complications; I10 Essential (primary) hypertension
CPT/HCPCS: 36416; A4216; J0692; J7050; J7620

== ENCOUNTER 2018-01-12 09:41 | Outpatient (CLI) | payer MEDICARE, OTHER | END 2018-01-12 09:42 | disposition home or self-care (01) | LOC: BURCT 09:41 → BURLABSP 09:42 | PROVIDERS: ATTEND Internal Medicine Hematology & Oncology | DX: C34.81 Malignant neoplasm of overlapping sites of right bronchus and lung (principal); C18.7 Malignant neoplasm of sigmoid colon; D50.8 Other iron deficiency anemias; N18.2 Chronic kidney disease, stage 2 (mild); M80.00XD Age-related osteoporosis with current pathological fracture, unspecified site, subsequent encounter for fracture with routine healing; Z85.3 Personal history of malignant neoplasm of breast | CPT/HCPCS: 36415; 82565 ==

== ENCOUNTER 2018-01-23 10:53 | Outpatient (CLI) | payer MEDICARE, OTHER ==
--- NOTE | 2018-01-23 15:10 | RAD ---
CHEST TWO VIEWS: Date: 01-23-18 Comparison: 04-12-17, 01-20-[address] FINDINGS: The opacity of the right upper lobe is less than it was in March. The left lung is essentially erika r. The right lower lobe seems well inflated. The right middle lobe is hard to assess. There are no la rge effusions. The heart size is stable. IMPRESSION: Improvement since March. No new findings of concern since the recent CT. POS: HOME
== END 2018-01-23 10:54 | disposition home or self-care (01) ==
LOC: BURRAD 10:53
PROVIDERS: ATTEND Internal Medicine Hematology & Oncology
DX: C34.81 Malignant neoplasm of overlapping sites of right bronchus and lung (principal); C18.7 Malignant neoplasm of sigmoid colon; D50.8 Other iron deficiency anemias; N18.2 Chronic kidney disease, stage 2 (mild); D63.1 Anemia in chronic kidney disease; M80.00XD Age-related osteoporosis with current pathological fracture, unspecified site, subsequent encounter for fracture with routine healing; Z85.3 Personal history of malignant neoplasm of breast
CPT/HCPCS: 71046

== ENCOUNTER 2018-03-05 07:02 | Inpatient (IN) | payer MEDICARE, OTHER ==
[2018-03-05] MEDS ORDERED: Nitroglycerin 2% Ointment 1 INCH/1 GM Packet ONE (07:24)
[2018-03-05] MEDS ORDERED: methylPREDNISolone Sod Succ/PF 125 MG/2 ML VIAL ONE (07:24)
[2018-03-05 07:31] LABS: #Basophils 0.1 thou/uL (0.0-0.2); #Eosinphils 0.2 thou/uL (0.0-0.7); #Lymphocytes 1.6 thou/uL (1.20-3.40); #Monocytes 0.7 thou/uL (0.11-0.59); #Neutrophils 4.2 thou/uL (1.40-6.50); %Basophils 1.6 % (0.0-1.0); %Eosinophils 3.1 % (0.0-10.0); %Lymphocytes 22.8 % (21.0-51.0); %Monocytes 10.6 % (0.0-10.0); Hemoglobin 12.5 g/dL (12.0-16.0); Mean Corpuscular HGB CONC 34.8 g/dL (32.0-36.0); Mean Corpuscular Hemoglobin 28.1 pg (27.0-31.0); Mean Corpuscular Volume 80.7 fL (78.0-98.0); Mean Platelet Volume 5.8 fL (7.4-10.4); Platelet Count 236 thou/uL (130-400); Red Blood Cell (RBC) Count 4.46 mill/uL (4.20-5.40); White Blood Cell (WBC) Count 6.8 thou/uL (4.8-10.8)
[2018-03-05 07:44] LABS: ALT (SGPT) 11 U/L (8-55); AST (SGOT) 16 U/L (5-34); Albumin 4.6 g/dL (3.4-4.8); Alkaline Phosphatase 59 U/L (40-150); Anion Gap 17 mmol/L (10-20); BUN (Urea Nitrogen) 18 mg/dL (9.8-20.1); Bilirubin, Total 0.6 mg/dL (0.2-1.2); CK (CPK) 84 U/L (29-168); Calc. Creatinine Clearance 0 mL/min (70-130); Calcium 10.4 mg/dL (7.8-10.44); Carbon Dioxide 26 mmol/L (23-31); Chloride 93 mmol/L (98-107); Estimated GFR-MDRD 41; Globulin 3.9 g/dL (2.4-3.5); Glucose 170 mg/dL (83-110); Potassium 4.5 mmol/L (3.5-5.1); Protein, Total 8.5 g/dL (6.0-8.3); Sodium 131 mmol/L (136-145)
[2018-03-05] MEDS ORDERED: Doxycycline Hyclate 100 MG TAB ONE (08:02)
[2018-03-05] MEDS ORDERED: cefTRIAXone\\ROCEPHIN 2 GM VIAL ONE (08:02)
[2018-03-05] MEDS ORDERED: Sodium Chloride 0.9% 100 ML ONE (08:02)
[2018-03-05] MEDS ORDERED: Ondansetron ODT 4 MG TAB SL PRN (09:54)
[2018-03-05] MEDS ORDERED: Ondansetron PF 4 MG/2 ML Vial IVP PRN (09:54)
[2018-03-05] MEDS ORDERED: Doxycycline Hyclate 100 MG TAB PO ONE (10:00)
[2018-03-05] MEDS ORDERED: Lorazepam 0.5 MG TAB PO PRN (17:54)
[2018-03-05] MEDS ORDERED: Dextrose 50% Abboject 50 ML SYRINGE SLOW IVP PRN (17:55)
[2018-03-05] MEDS ORDERED: Dextrose 5% in Water 1,000 ML IV PRN (17:55)
--- NOTE | 2018-03-05 18:44 | RAD ---
PORTABLE CHEST 03/05/18 An AP portable film at 1858 is compared with an 01/23/18 study. A consolidation of the right upper lobe is present which is denser today than it was in January. The amount of volume loss here is about the same. No new infiltrates are seen elsewhere. A central line enters via the right subclavian route as before. The heart size is stable. There are no effusions or congestive changes. IMPRESSION: Right upper lobe consolidation slightly denser POS: HOME
[2018-03-05] MEDS: Metoprolol Tartrate 25 MG TAB PO SCH (20:44)
[2018-03-05] MEDS: cloNIDine 0.1 MG TAB PO SCH (20:44)
[2018-03-05] MEDS: Doxycycline Hyclate 100 MG TAB PO SCH (20:44)
[2018-03-05] MEDS: Enoxaparin Sodium 40 MG/0.4 ML SYRINGE SC SCH (20:45)
[2018-03-05] MEDS: HumaLOG 300 UNITS/3 ML VIAL SC PRN (20:55)
[2018-03-05] MEDS: Acetaminophen 325 MG TAB PO PRN (20:56)
[2018-03-05] MEDS ORDERED: Prevnar 13-Val Conj/PF 0.5 ML SYRINGE IM ONE (21:00)
[2018-03-05] MEDS: Zolpidem Tartrate 5 MG TAB PO PRN (22:18)
--- NOTE | 2018-03-06 02:53 | HP ---
CHIEF COMPLAINT: Cough and shortness of breath. HISTORY OF PRESENT ILLNESS: Ms. Gunderson is a 72-year-old female with past medical history of ekf-[id number]-agmn carcinoma of the right lung in remission, who presents to the emergency room with worsening cough and sputum production over the last 24 hours. She states her symptoms started approximately 1 week ago and had been progressive. Denies any fever, nausea, vomiting, or diarrhea. She has a history of ioz-migjw-rvmv carcinoma of the lung on the right and is followed by Dr. Blanca Golden and has had no growth of her lesion or evidence of metabolic activity on PET scan in recent months. She denies sick contacts. She is up-to-date on her immunizations. She did have influenza earlier in April of this year. In the emergency room, a chest x-ray revealed no acute infiltrates with a stable mass in the right chest. Her O2 sat was in the 70s on admission, but quickly improved with administration of neb, methylprednisolone, and oxygen. Since her transfer to the floor, she is feeling much improved. She is not on oxygen therapy at home and is currently stable at 2.5 L per minute. PAST MEDICAL HISTORY: 1. Rkw-zijfu-uqjs carcinoma of the lung on the right. 2. Left breast cancer, T2 N3 M0, triple-negative, status post chemo and radiation in 2009. 3. Hypertension. 4. Anxiety. 5. Adenocarcinoma of sigmoid colon, T3 N0 M0. 6. Type 2 diabetes. 7. Hyperlipidemia. 8. Recurrent urinary tract infections. 9. Microalbuminuria. 10. Iron-deficiency anemia. 11. Paroxysmal atrial fibrillation, not a candidate for anticoagulation, but on antiarrhythmic therapy. 12. Systolic congestive heart failure. 13. Moderate aortic regurgitation. 14. Anemia of chronic disease. PAST SURGICAL HISTORY: 1. Cholecystectomy in 2006. 2. Hysterectomy in 1988. 3. Left breast lumpectomy and axillary node dissection in July 2010. 4. Laparoscopic right hemicolectomy for severe appendicitis in December 2010. 5. Laparoscopic low anterior resection for colon cancer in March 2011. 6. Kyphoplasty in October 2017, Dr. Leal. ALLERGIES: TO IODINATED CONTRAST AND SULFA. SOCIAL HISTORY: Nonsmoker. Denies alcohol or illicit drug use. The patient lives alone in [place], but has a very active lfmvxnne-mo-wne, who lives here locally and daughter who lives within a couple of hours of her. FAMILY HISTORY: Her father is and had a history of diabetes. She had a younger brother with brain tumor, older brother with chronic anemia, and daughter who had cervical cancer. CURRENT MEDICATIONS: 1. Clonidine 0.1 mg p.o. b.i.d. 2. Magnesium oxide 400 mg p.o. b.i.d. with meals. 3. Zestril 40 mg p.o. daily. 4. Paxil 20 mg p.o. daily. 5. Multaq 400 mg p.o. b.i.d. 6. Metoprolol tartrate 50 mg p.o. b.i.d. 7. Norvasc 5 mg p.o. daily. 8. Potassium chloride 20 mEq p.o. daily. 9. Lasix 60 mg p.o. daily. 10. Metformin 2 tablets p.o. daily, 500 mg. 11. Perforomist (formoterol) 20 mcg inhaled daily. 12. Lorazepam 0.5 mg p.o. b.i.d. p.r.n. REVIEW OF SYSTEMS: GENERAL: Denies fever, chills, fatigue above her baseline, or focal weakness. HEENT: Denies nasal congestion, rhinorrhea, sore throat, or ear pain. Denies vision changes. CARDIOVASCULAR: Denies chest pain, palpitations, orthopnea, or paroxysmal nocturnal dyspnea. RESPIRATORY: Denies hemoptysis. Positive cough and dyspnea as well as yellow thick sputum production. GASTROINTESTINAL: Denies nausea, vomiting, diarrhea, melena, hematochezia, or abdominal pain. LYMPHATIC: Denies swelling. HEMATOLOGIC: Denies any bleeding. GENITOURINARY: Denies dysuria, decreased urinary output, foul-smelling urine, frequency. ENDOCRINE: The patient with a history of diabetes and reports no recent hyperglycemia. PHYSICAL EXAMINATION: VITAL SIGNS: In the emergency room on arrival, O2 saturation 77% on room air, respirations 36, blood pressure 220/99, pulse 74. Increased O2 sat to 97% on facemask. On my exam, temperature 98.3, pulse 71, respirations 18, 96% on 2 L per minute per nasal cannula, blood pressure 159/60. GENERAL: Well-developed, well-nourished female, alert and oriented x3 , in no acute distress. HEENT: Normocephalic and atraumatic. Pupils equally round and reactive to light and accommodation. Extraocular muscles intact. Nares are patent without discharge. Tongue protrudes in the midline. NECK: Supple without lymphadenopathy, thyromegaly, JVD, or bruits. HEART: Regular rate and rhythm. Normal S1, S2 with distant heart sounds. No murmurs, clicks, rubs, or gallops. LUNGS: Coarse breath sounds throughout with rhonchi, most pronounced in the right lung base. No wheezing. No respiratory distress. ABDOMEN: Positive bowel sounds in all 4 quadrants. Soft, nontender, and nondistended. No masses, guarding, or rebound tenderness. EXTREMITIES: No cyanosis, clubbing, or edema. NEUROLOGIC: Cranial nerves 2 through 12 grossly intact with no focal deficits. PSYCHIATRIC: Mood and affect appropriate. LABORATORY DATA: White count 6.8, hemoglobin 12.5, hematocrit 36.0, platelets 236. Sodium 131, potassium 4.5, chloride 93, bicarbonate 26, BUN 18, creatinine 1.28, glucose 170, calcium 10.4. Normal LFTs. Troponin I less than 0.01. B-type natriuretic peptide is 498.6, which is lower than past values. Albumin 4.6. Subsequent Accu-Chek 171 and 218 at 1633 hours this afternoon. IMAGING: Chest x-ray, radiology read is pending, shows a stable right lung mass with no obvious infiltrates. ASSESSMENT AND PLAN: 1. Acute hypoxic respiratory failure secondary to bronchitis with bronchospasm. We will get influenza A and B swab. Place patient on empiric antibiotic therapy with Rocephin and doxycycline due to potential medication interactions with her Multaq. The patient will be continued on oxygen and weaned as she improves. She was given a dose of Solu-Medrol in the ER and improved, but I do not hear wheezing currently on her exam. We will hold off on scheduling that at this time. Continue neb treatments q.4 hours p.r.n. for wheezing and shortness of breath and we will continue the patient on her home formoterol. If the patient is unable to wean from oxygen, we will need to qualify her for home oxygen. We will repeat CBC, basic metabolic profile, and a chest x-ray in the morning. 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 Rivas, and we consider to see him as an outpatient at discharge. 2. Hyponatremia. 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 She does not currently appear to be fluid overloaded on exam. Again, we will repeat her metabolic profile in the morning. 3. Type 2 diabetes: We will hold the patient's metformin given her increased creatinine and possibility of needing contrast during admission. We will order sliding scale bedtime algorithm with lispro correction and Accu-Cheks q.a.c. and at bedtime. Diabetic diet. 4. Acute kidney injury: The patient will hydrate overnight. We will repeat her lab in the morning. 5. Hypertension: The patient will be continued on her home regimen and monitored. 6. Anxiety: I have continued her lorazepam p.r.n. 7. History of rgg-dhbbq-vjlm carcinoma of the lung on the right. Followed by Dr. Golden. We will review radiology report of the chest x-ray. 8. Hyperlipidemia. The patient will be continued on her statin therapy. 9. History of iron-deficiency anemia and anemia of chronic disease. At present , her hemoglobin and hematocrit are normal. When she is hydrated, we will need to look at this again, so I have repeated her CBC in the morning. 10. Paroxysmal atrial fibrillation, currently regular rate and rhythm. She is not a candidate for anticoagulation. We will continue her Multaq and watch out for potential pofc-ze-pelt interactions. 11. Systolic congestive heart failure: The patient appears to be euvolemic at present or may be slightly dry. We will continue her current diuretic regimen, just have her hydrate overnight and repeat her metabolic profile in the morning. Her BNP is a little elevated, but it has certainly been elevated beyond this in the past. 12. History of thoracic compression fracture, status post kyphoplasty. The patient denies any need for pain medications at home, but she has been unable to sleep, so I will order her some p.r.n. zolpidem for tonight. 13. Prophylaxis: With history of malignancy and risk for falls, I would rather not do SCDs and do Lovenox prophylaxis instead. She has had no evidence of recent bleeding. We will place the patient on Pepcid. 14. Code status: The patient desires full code, but does want advance directives to remove care in the event of a terminal illness. Job ID: [id number] MTDD
[2018-03-06 05:30] LABS: #Lymphocytes 0.6 thou/uL (1.20-3.40); #Monocytes 0.2 thou/uL (0.11-0.59); #Neutrophils 4.2 thou/uL (1.40-6.50); %Basophils 0.4 % (0.0-1.0); %Lymphocytes 11.2 % (21.0-51.0); %Monocytes 3.5 % (0.0-10.0); %Neutrophils 84.9 % (42.0-75.0); Hemoglobin 10.4 g/dL (12.0-16.0); Mean Corpuscular HGB CONC 34.5 g/dL (32.0-36.0); Platelet Count 175 thou/uL (130-400); RBC Distribution Width 12.9 % (11.5-14.5); Red Blood Cell (RBC) Count 3.72 mill/uL (4.20-5.40)
[2018-03-06 05:39] LABS: Anion Gap 14 mmol/L (10-20); BUN (Urea Nitrogen) 27 mg/dL (9.8-20.1); Calc. Creatinine Clearance 43 mL/min (70-130); Calcium 9.3 mg/dL (7.8-10.44); Carbon Dioxide 23 mmol/L (23-31); Chloride 95 mmol/L (98-107); Estimated GFR-MDRD 48; Glucose 158 mg/dL (83-110); Potassium 4.7 mmol/L (3.5-5.1); Sodium 127 mmol/L (136-145)
[2018-03-06] MEDS ORDERED: Furosemide 40 MG TAB PO SCH (09:00)
[2018-03-06] MEDS: Arformoterol 15 MCG/2 ML NEB NEB SCH (09:55)
[2018-03-06] MEDS: Amlodipine 5 MG TAB PO SCH (10:00)
[2018-03-06] MEDS: Metoprolol Tartrate 25 MG TAB PO SCH ×2 (10:04→20:20)
[2018-03-06] MEDS: PARoxetine 20 MG TAB PO SCH (10:04)
[2018-03-06] MEDS: Doxycycline Hyclate 100 MG TAB PO SCH ×2 (10:04→20:17)
[2018-03-06] MEDS: Lisinopril 20 MG TAB PO SCH (10:05)
[2018-03-06] MEDS: Furosemide 40 MG TAB PO SCH (10:05)
[2018-03-06] MEDS: Magnesium Oxide 400 MG TAB PO SCH ×2 (10:05→18:43)
[2018-03-06] MEDS: predniSONE 20 MG TAB PO SCH (10:06)
[2018-03-06] MEDS: Dronedarone HCl 400 MG TAB PO SCH ×2 (10:06→18:43)
[2018-03-06] MEDS: Potassium Chloride 20 MEQ TAB PO SCH (10:06)
[2018-03-06] MEDS: cloNIDine 0.1 MG TAB PO SCH ×2 (10:07→20:17)
[2018-03-06] MEDS: HumaLOG 300 UNITS/3 ML VIAL SC PRN ×3 (10:16→20:44)
[2018-03-06] MEDS: cefTRIAXone\\ROCEPHIN 1 GM in Sodium Chloride 0.9% 100 ML IVPB SCH (11:05)
--- NOTE | 2018-03-06 11:21 | RAD ---
CHEST TWO VIEWS: 03/06/2018 0957 HOURS COMPARISON: 03/05/2018 FINDINGS: An AP portable film again shows the right upper lobe consolidation, which is approximately the same a s yesterday. There may be a little more lingular streaking than before. The lungs are otherwise sim ilar. The right central line remains in place. Mild cardiomegaly is about the same as before. Ther e are no large effusions. IMPRESSION: Similar findings to yesterday. At most, there may be a little more lingular streaking today. POS: HOME
[2018-03-06] MEDS: Enoxaparin Sodium 40 MG/0.4 ML SYRINGE SC SCH (20:16)
[2018-03-06] MEDS: Zolpidem Tartrate 5 MG TAB PO PRN (20:20)
[2018-03-07 05:46] LABS: Anion Gap 14 mmol/L (10-20); BUN (Urea Nitrogen) 31 mg/dL (9.8-20.1); Calc. Creatinine Clearance 43 mL/min (70-130); Calcium 9.1 mg/dL (7.8-10.44); Carbon Dioxide 25 mmol/L (23-31); Chloride 96 mmol/L (98-107); Estimated GFR-MDRD 48; Glucose 107 mg/dL (83-110); Potassium 4.6 mmol/L (3.5-5.1); Sodium 130 mmol/L (136-145)
[2018-03-07] MEDS: Acetaminophen 325 MG TAB PO PRN (06:23)
[2018-03-07] MEDS: Lisinopril 20 MG TAB PO SCH (09:39)
[2018-03-07] MEDS: Metoprolol Tartrate 25 MG TAB PO SCH ×2 (09:39→21:14)
[2018-03-07] MEDS: predniSONE 20 MG TAB PO SCH (09:42)
[2018-03-07] MEDS: cloNIDine 0.1 MG TAB PO SCH ×2 (09:42→21:15)
[2018-03-07] MEDS: Doxycycline Hyclate 100 MG TAB PO SCH ×2 (09:42→21:14)
[2018-03-07] MEDS: Magnesium Oxide 400 MG TAB PO SCH ×2 (09:42→17:31)
[2018-03-07] MEDS: Amlodipine 5 MG TAB PO SCH (09:42)
[2018-03-07] MEDS: Arformoterol 15 MCG/2 ML NEB NEB SCH (09:43)
[2018-03-07] MEDS: Potassium Chloride 20 MEQ TAB PO SCH (09:43)
[2018-03-07] MEDS: Dronedarone HCl 400 MG TAB PO SCH ×2 (09:43→17:31)
[2018-03-07] MEDS: PARoxetine 20 MG TAB PO SCH (09:43)
[2018-03-07] MEDS: Furosemide 40 MG TAB PO SCH (09:45)
[2018-03-07] MEDS: cefTRIAXone\\ROCEPHIN 1 GM in Sodium Chloride 0.9% 100 ML IVPB SCH (10:59)
[2018-03-07] MEDS: HumaLOG 300 UNITS/3 ML VIAL SC PRN ×2 (17:30→21:23)
[2018-03-07] MEDS: Enoxaparin Sodium 40 MG/0.4 ML SYRINGE SC SCH (21:14)
[2018-03-07] MEDS: Zolpidem Tartrate 5 MG TAB PO PRN (21:14)
[2018-03-08] MEDS: Arformoterol 15 MCG/2 ML NEB NEB SCH (07:41)
[2018-03-08] MEDS: cefTRIAXone\\ROCEPHIN 1 GM in Sodium Chloride 0.9% 100 ML IVPB SCH (07:46)
[2018-03-08] MEDS: Magnesium Oxide 400 MG TAB PO SCH ×2 (07:47→17:13)
[2018-03-08] MEDS: Dronedarone HCl 400 MG TAB PO SCH ×2 (07:47→17:13)
[2018-03-08] MEDS: cloNIDine 0.1 MG TAB PO SCH (09:03)
[2018-03-08] MEDS: Metoprolol Tartrate 25 MG TAB PO SCH (09:03)
[2018-03-08] MEDS: predniSONE 20 MG TAB PO SCH (09:03)
[2018-03-08] MEDS: Furosemide 40 MG TAB PO SCH (09:04)
[2018-03-08] MEDS: Potassium Chloride 20 MEQ TAB PO SCH (09:04)
[2018-03-08] MEDS: PARoxetine 20 MG TAB PO SCH (09:05)
[2018-03-08] MEDS: Lisinopril 20 MG TAB PO SCH (09:05)
[2018-03-08] MEDS: Amlodipine 5 MG TAB PO SCH (09:09)
[2018-03-08] MEDS: Doxycycline Hyclate 100 MG TAB PO SCH (09:20)
--- NOTE | 2018-03-08 11:01 | RAD ---
CHEST 2 VIEWS: Date: 03/08/18 Comparison made with the prior two studies of 03/05/18 and 03/06/18. FINDINGS: The right upper lobe has cleared further. There also is a little less streaking in the lingula in the last two days. No new infiltrates were seen elsewhere. No large effusions were present. The cardiac size is stable. IMPRESSION: Infiltrates clearing, with improvement over the last 2 days. POS: HOME
[2018-03-08] MEDS: HumaLOG 300 UNITS/3 ML VIAL SC PRN ×2 (13:15→18:06)
[2018-03-08 14:46] VITALS: BMI 23.8
[2018-03-08 18:46] VITALS: BP 177/80; TEMP 98.2
== END 2018-03-08 19:14 | disposition swing bed (61) | DRG 193 ==
LOC: BURERS 07:02 → BURMED 08:21
PROVIDERS: ADMIT Family Medicine; ATTEND Family Medicine
DX: J18.1 Lobar pneumonia, unspecified organism (principal); J96.01 Acute respiratory failure with hypoxia; I50.22 Chronic systolic (congestive) heart failure; E22.2 Syndrome of inappropriate secretion of antidiuretic hormone; N17.9 Acute kidney failure, unspecified; I13.0 Hypertensive heart and chronic kidney disease with heart failure and stage 1 through stage 4 chronic kidney disease, or unspecified chronic kidney disease; J20.9 Acute bronchitis, unspecified; F41.9 Anxiety disorder, unspecified; I48.0 Paroxysmal atrial fibrillation; N18.3 Chronic kidney disease, stage 3 (moderate); E11.22 Type 2 diabetes mellitus with diabetic chronic kidney disease; I35.1 Nonrheumatic aortic (valve) insufficiency; D63.8 Anemia in other chronic diseases classified elsewhere; E78.5 Hyperlipidemia, unspecified; Z85.038 Personal history of other malignant neoplasm of large intestine; Z90.89 Acquired absence of other organs; Z98.890 Other specified postprocedural states; Z90.49 Acquired absence of other specified parts of digestive tract; Z90.710 Acquired absence of both cervix and uterus; Z85.118 Personal history of other malignant neoplasm of bronchus and lung; Z79.84 Long term (current) use of oral hypoglycemic drugs; Z92.21 Personal history of antineoplastic chemotherapy; Z85.3 Personal history of malignant neoplasm of breast; Z92.3 Personal history of irradiation; Z79.899 Other long term (current) drug therapy; Z88.2 Allergy status to sulfonamides; Z91.041 Radiographic dye allergy status
CPT/HCPCS: 36415; 36416; 71045; 71046; 80048; 80053; 82550; 83880; 84484; 85025; 87040; 87804; 93005; 94640; 94760; 96365; 96375; J0696; J1650; J2920; J2930; J7050; J7506; J7620

== ENCOUNTER 2018-03-08 19:26 | Inpatient (IN) | payer MEDICARE, OTHER ==
[2018-03-08] MEDS ORDERED: Ondansetron ODT 4 MG TAB PO PRN (23:25)
[2018-03-08] MEDS ORDERED: Bisacodyl 5 MG TAB PO PRN (23:25)
[2018-03-08] MEDS ORDERED: Dextrose 5% in Water 1,000 ML IV PRN (23:29)
[2018-03-08] MEDS ORDERED: Dextrose 50% Abboject 50 ML SYRINGE SLOW IVP PRN ×2 (23:29)
[2018-03-08] MEDS ORDERED: HumaLOG 300 UNITS/3 ML VIAL SC PRN (23:29)
[2018-03-08] MEDS ORDERED: Acetaminophen 325 MG TAB PO PRN (23:29)
[2018-03-08] MEDS ORDERED: Lorazepam 0.5 MG TAB PO PRN (23:29)
[2018-03-08] MEDS ORDERED: cefTRIAXone\\ROCEPHIN 1 GM VIAL IVPB SCH (23:30)
[2018-03-08] MEDS ORDERED: cefTRIAXone\\ROCEPHIN 1 GM in Sodium Chloride 0.9% 100 ML IVPB SCH (23:59)
[2018-03-08] MEDS ORDERED: Metoprolol Tartrate 25 MG TAB PO SCH (23:59)
[2018-03-09] MEDS ORDERED: HumaLOG 300 UNITS/3 ML VIAL SC PRN (00:30)
[2018-03-09 05:44] LABS: ALT (SGPT) 17 U/L (8-55); AST (SGOT) 12 U/L (5-34); Albumin 3.6 g/dL (3.4-4.8); Alkaline Phosphatase 42 U/L (40-150); Anion Gap 13 mmol/L (10-20); BUN (Urea Nitrogen) 28 mg/dL (9.8-20.1); Bilirubin, Total 0.3 mg/dL (0.2-1.2); Calc. Creatinine Clearance 40 mL/min (70-130); Calcium 9.5 mg/dL (7.8-10.44); Carbon Dioxide 27 mmol/L (23-31); Chloride 93 mmol/L (98-107); Estimated GFR-MDRD 44; Globulin 2.9 g/dL (2.4-3.5); Glucose 95 mg/dL (83-110); Potassium 4.4 mmol/L (3.5-5.1); Protein, Total 6.5 g/dL (6.0-8.3); Sodium 129 mmol/L (136-145)
[2018-03-09] MEDS: predniSONE 20 MG TAB PO SCH (07:59)
[2018-03-09] MEDS: Magnesium Oxide 400 MG TAB PO SCH ×2 (07:59→18:07)
[2018-03-09] MEDS: Potassium Chloride 20 MEQ TAB PO SCH (08:00)
[2018-03-09] MEDS: metFORMIN 500 MG TAB PO SCH (08:00)
[2018-03-09] MEDS: Dronedarone HCl 400 MG TAB PO SCH ×2 (08:00→18:07)
[2018-03-09] MEDS ORDERED: Non-Formulary Item 1 EACH (Formoterol Fumarate [Perforomist] 20 MCG) IH SCH (09:00)
[2018-03-09] MEDS: Furosemide 20 MG TAB PO SCH (09:21)
[2018-03-09] MEDS: Lisinopril 20 MG TAB PO SCH (09:22)
[2018-03-09] MEDS: cloNIDine 0.1 MG TAB PO SCH ×2 (09:22→21:10)
[2018-03-09] MEDS: Amlodipine 5 MG TAB PO SCH (09:23)
[2018-03-09] MEDS: Arformoterol 15 MCG/2 ML NEB NEB SCH (09:23)
[2018-03-09] MEDS: PARoxetine 20 MG TAB PO SCH (09:24)
[2018-03-09] MEDS: Doxycycline Hyclate 100 MG TAB PO SCH ×2 (09:24→21:19)
[2018-03-09] MEDS: cefTRIAXone\\ROCEPHIN 1 GM in Sodium Chloride 0.9% 100 ML IVPB SCH (09:27)
[2018-03-09] MEDS: Metoprolol Tartrate 25 MG TAB PO SCH ×2 (09:32→21:10)
[2018-03-09] MEDS: HumaLOG 300 UNITS/3 ML VIAL SC PRN ×2 (13:17→18:06)
[2018-03-09 16:35] VITALS: BMI 23.8
[2018-03-09] MEDS: Zolpidem Tartrate 5 MG TAB PO PRN ×2 (21:09)
[2018-03-09] MEDS: Enoxaparin Sodium 40 MG/0.4 ML SYRINGE SC SCH (21:10)
[2018-03-10] MEDS: PARoxetine 20 MG TAB PO SCH (09:33)
[2018-03-10] MEDS: cefTRIAXone\\ROCEPHIN 1 GM in Sodium Chloride 0.9% 100 ML IVPB SCH (09:33)
[2018-03-10] MEDS: predniSONE 20 MG TAB PO SCH (09:33)
[2018-03-10] MEDS: Lisinopril 20 MG TAB PO SCH (09:34)
[2018-03-10] MEDS: metFORMIN 500 MG TAB PO SCH (09:35)
[2018-03-10] MEDS: Potassium Chloride 20 MEQ TAB PO SCH (09:35)
[2018-03-10] MEDS: Magnesium Oxide 400 MG TAB PO SCH ×2 (09:36→18:04)
[2018-03-10] MEDS: Furosemide 20 MG TAB PO SCH (09:36)
[2018-03-10] MEDS: Metoprolol Tartrate 25 MG TAB PO SCH ×2 (09:37→20:52)
[2018-03-10] MEDS: Dronedarone HCl 400 MG TAB PO SCH ×2 (09:37→18:04)
[2018-03-10] MEDS: Amlodipine 5 MG TAB PO SCH (09:37)
[2018-03-10] MEDS: cloNIDine 0.1 MG TAB PO SCH ×2 (09:38→20:53)
[2018-03-10] MEDS: Arformoterol 15 MCG/2 ML NEB NEB SCH (09:38)
[2018-03-10] MEDS: Doxycycline Hyclate 100 MG TAB PO SCH ×2 (10:03→20:53)
[2018-03-10] MEDS: HumaLOG 300 UNITS/3 ML VIAL SC PRN (18:04)
[2018-03-10] MEDS: Enoxaparin Sodium 40 MG/0.4 ML SYRINGE SC SCH (20:51)
[2018-03-10] MEDS: Zolpidem Tartrate 5 MG TAB PO PRN (20:52)
[2018-03-11 06:19] LABS: #Basophils 0.1 thou/uL (0.0-0.2); #Eosinphils 0.1 thou/uL (0.0-0.7); #Lymphocytes 1.2 thou/uL (1.20-3.40); #Monocytes 0.5 thou/uL (0.11-0.59); %Basophils 1.4 % (0.0-1.0); %Eosinophils 1.7 % (0.0-10.0); %Lymphocytes 24.3 % (21.0-51.0); %Monocytes 10.1 % (0.0-10.0); %Neutrophils 62.5 % (42.0-75.0); Hemoglobin 10.8 g/dL (12.0-16.0); Mean Corpuscular HGB CONC 35.4 g/dL (32.0-36.0); Mean Corpuscular Hemoglobin 28.9 pg (27.0-31.0); Mean Corpuscular Volume 81.7 fL (78.0-98.0); Mean Platelet Volume 5.7 fL (7.4-10.4); Platelet Count 195 thou/uL (130-400); RBC Distribution Width 12.8 % (11.5-14.5); Red Blood Cell (RBC) Count 3.73 mill/uL (4.20-5.40); White Blood Cell (WBC) Count 4.8 thou/uL (4.8-10.8)
[2018-03-11 06:27] LABS: Anion Gap 13 mmol/L (10-20); BUN (Urea Nitrogen) 28 mg/dL (9.8-20.1); Calc. Creatinine Clearance 39 mL/min (70-130); Calcium 9.5 mg/dL (7.8-10.44); Carbon Dioxide 28 mmol/L (23-31); Chloride 95 mmol/L (98-107); Estimated GFR-MDRD 42; Glucose 89 mg/dL (83-110); Potassium 4.3 mmol/L (3.5-5.1); Sodium 132 mmol/L (136-145)
[2018-03-11] MEDS: Amlodipine 5 MG TAB PO SCH (09:00)
[2018-03-11] MEDS: Potassium Chloride 20 MEQ TAB PO SCH (09:00)
[2018-03-11] MEDS: Dronedarone HCl 400 MG TAB PO SCH ×2 (09:00→17:37)
[2018-03-11] MEDS: cloNIDine 0.1 MG TAB PO SCH ×2 (09:01→21:04)
[2018-03-11] MEDS: Magnesium Oxide 400 MG TAB PO SCH ×2 (09:02→17:38)
[2018-03-11] MEDS: Lisinopril 20 MG TAB PO SCH (09:02)
[2018-03-11] MEDS: predniSONE 20 MG TAB PO SCH (09:02)
[2018-03-11] MEDS: Furosemide 20 MG TAB PO SCH (09:03)
[2018-03-11] MEDS: Metoprolol Tartrate 25 MG TAB PO SCH ×2 (09:03→21:04)
[2018-03-11] MEDS: PARoxetine 20 MG TAB PO SCH (09:03)
[2018-03-11] MEDS: metFORMIN 500 MG TAB PO SCH (09:04)
[2018-03-11] MEDS: cefTRIAXone\\ROCEPHIN 1 GM in Sodium Chloride 0.9% 100 ML IVPB SCH (09:10)
[2018-03-11] MEDS: Arformoterol 15 MCG/2 ML NEB NEB SCH (09:11)
[2018-03-11] MEDS: Doxycycline Hyclate 100 MG TAB PO SCH ×2 (09:22→21:04)
[2018-03-11] MEDS: Acetaminophen 325 MG TAB PO PRN (09:34)
--- NOTE | 2018-03-11 11:36 | RAD ---
PA AND LATERAL CHEST: History: Shortness of breath. FINDINGS: Comparison made with exam of 03-08-18. The heart size is normal. The aorta is tortuous. The right sided port-a-cath remains in place. Densit y in the right upper mid lung is stable. IMPRESSION: Stable exam. POS: OFF
[2018-03-11] MEDS: HumaLOG 300 UNITS/3 ML VIAL SC PRN (17:35)
[2018-03-11] MEDS: Zolpidem Tartrate 5 MG TAB PO PRN (21:04)
[2018-03-11] MEDS: Enoxaparin Sodium 40 MG/0.4 ML SYRINGE SC SCH (21:05)
[2018-03-12] MEDS: Magnesium Oxide 400 MG TAB PO SCH ×2 (07:48→17:14)
[2018-03-12] MEDS: Potassium Chloride 20 MEQ TAB PO SCH (07:48)
[2018-03-12] MEDS: metFORMIN 500 MG TAB PO SCH (07:48)
[2018-03-12] MEDS: Acetaminophen 325 MG TAB PO PRN (07:48)
[2018-03-12] MEDS: Dronedarone HCl 400 MG TAB PO SCH ×2 (07:49→17:14)
[2018-03-12] MEDS: predniSONE 20 MG TAB PO SCH (07:49)
[2018-03-12] MEDS: cefTRIAXone\\ROCEPHIN 1 GM in Sodium Chloride 0.9% 100 ML IVPB SCH (08:37)
[2018-03-12] MEDS: cloNIDine 0.1 MG TAB PO SCH ×2 (08:38→20:08)
[2018-03-12] MEDS: Amlodipine 5 MG TAB PO SCH (08:39)
[2018-03-12] MEDS: Furosemide 20 MG TAB PO SCH (08:43)
[2018-03-12] MEDS: Metoprolol Tartrate 25 MG TAB PO SCH ×2 (08:44→20:08)
[2018-03-12] MEDS: Lisinopril 20 MG TAB PO SCH (08:44)
[2018-03-12] MEDS: PARoxetine 20 MG TAB PO SCH (08:44)
[2018-03-12] MEDS: Arformoterol 15 MCG/2 ML NEB NEB SCH (08:50)
[2018-03-12 09:02] LABS: Hemoglobin 11.4 g/dL (12.0-16.0)
[2018-03-12 09:03] LABS: Platelet Count 209 thou/uL (130-400)
[2018-03-12] MEDS: Doxycycline Hyclate 100 MG TAB PO SCH ×2 (09:38→20:16)
[2018-03-12] MEDS: HumaLOG 300 UNITS/3 ML VIAL SC PRN ×2 (12:28→17:17)
[2018-03-12] MEDS: Enoxaparin Sodium 40 MG/0.4 ML SYRINGE SC SCH (20:07)
[2018-03-12] MEDS: Zolpidem Tartrate 5 MG TAB PO PRN (20:18)
[2018-03-13] MEDS: Dronedarone HCl 400 MG TAB PO SCH ×2 (08:42→17:26)
[2018-03-13] MEDS: Magnesium Oxide 400 MG TAB PO SCH ×2 (08:42→17:26)
[2018-03-13] MEDS: metFORMIN 500 MG TAB PO SCH (08:42)
[2018-03-13] MEDS: Potassium Chloride 20 MEQ TAB PO SCH (08:43)
[2018-03-13] MEDS: predniSONE 20 MG TAB PO SCH (08:43)
[2018-03-13] MEDS: Acetaminophen 325 MG TAB PO PRN (08:58)
[2018-03-13] MEDS: Furosemide 20 MG TAB PO SCH (08:58)
[2018-03-13] MEDS: Metoprolol Tartrate 25 MG TAB PO SCH ×2 (08:59→21:12)
[2018-03-13] MEDS: cloNIDine 0.1 MG TAB PO SCH ×2 (08:59→21:13)
[2018-03-13] MEDS: PARoxetine 20 MG TAB PO SCH (08:59)
[2018-03-13] MEDS: Amlodipine 5 MG TAB PO SCH (09:00)
[2018-03-13] MEDS: Lisinopril 20 MG TAB PO SCH (09:00)
[2018-03-13] MEDS: Doxycycline Hyclate 100 MG TAB PO SCH ×2 (09:02→21:12)
[2018-03-13] MEDS: Arformoterol 15 MCG/2 ML NEB NEB SCH (09:04)
[2018-03-13] MEDS: HumaLOG 300 UNITS/3 ML VIAL SC PRN ×2 (12:26→17:30)
[2018-03-13] MEDS: Enoxaparin Sodium 40 MG/0.4 ML SYRINGE SC SCH (21:13)
[2018-03-13] MEDS: Zolpidem Tartrate 5 MG TAB PO PRN (21:13)
[2018-03-14 05:08] LABS: Hemoglobin 10.4 g/dL (12.0-16.0); Platelet Count 202 thou/uL (130-400)
[2018-03-14] MEDS: Acetaminophen 325 MG TAB PO PRN (07:45)
[2018-03-14] MEDS: Furosemide 20 MG TAB PO SCH (09:19)
[2018-03-14] MEDS: Doxycycline Hyclate 100 MG TAB PO SCH ×2 (09:19→20:18)
[2018-03-14] MEDS: Potassium Chloride 20 MEQ TAB PO SCH (09:19)
[2018-03-14] MEDS: metFORMIN 500 MG TAB PO SCH (09:19)
[2018-03-14] MEDS: PARoxetine 20 MG TAB PO SCH (09:19)
[2018-03-14] MEDS: Dronedarone HCl 400 MG TAB PO SCH ×2 (09:19→17:53)
[2018-03-14] MEDS: Magnesium Oxide 400 MG TAB PO SCH ×2 (09:19→17:53)
[2018-03-14] MEDS: Lisinopril 20 MG TAB PO SCH (09:20)
[2018-03-14] MEDS: predniSONE 20 MG TAB PO SCH (09:20)
[2018-03-14] MEDS: Metoprolol Tartrate 25 MG TAB PO SCH ×2 (09:20→20:17)
[2018-03-14] MEDS: Amlodipine 5 MG TAB PO SCH (09:22)
[2018-03-14] MEDS: cloNIDine 0.1 MG TAB PO SCH ×2 (09:22→20:17)
[2018-03-14] MEDS: Arformoterol 15 MCG/2 ML NEB NEB SCH (09:31)
[2018-03-14] MEDS: HumaLOG 300 UNITS/3 ML VIAL SC PRN (18:07)
[2018-03-14] MEDS ORDERED: Nitroglycerin 50 MG/250 ML BOT 0 ML ONE (18:41)
[2018-03-14] MEDS: Enoxaparin Sodium 40 MG/0.4 ML SYRINGE SC SCH (20:16)
[2018-03-14] MEDS: Zolpidem Tartrate 5 MG TAB PO PRN (20:18)
[2018-03-15] MEDS: Furosemide 20 MG TAB PO SCH (09:27)
[2018-03-15] MEDS: PARoxetine 20 MG TAB PO SCH (09:27)
[2018-03-15] MEDS: metFORMIN 500 MG TAB PO SCH (09:27)
[2018-03-15] MEDS: predniSONE 20 MG TAB PO SCH (09:27)
[2018-03-15] MEDS: Magnesium Oxide 400 MG TAB PO SCH ×2 (09:28→17:30)
[2018-03-15] MEDS: cloNIDine 0.1 MG TAB PO SCH ×2 (09:28→20:44)
[2018-03-15] MEDS: Lisinopril 20 MG TAB PO SCH (09:30)
[2018-03-15] MEDS: Metoprolol Tartrate 25 MG TAB PO SCH ×2 (09:30→20:43)
[2018-03-15] MEDS: Dronedarone HCl 400 MG TAB PO SCH ×2 (09:30→17:30)
[2018-03-15] MEDS: Potassium Chloride 20 MEQ TAB PO SCH (09:30)
[2018-03-15] MEDS: Amlodipine 5 MG TAB PO SCH (09:30)
[2018-03-15] MEDS: Arformoterol 15 MCG/2 ML NEB NEB SCH (09:35)
[2018-03-15] MEDS: Doxycycline Hyclate 100 MG TAB PO SCH ×2 (10:26→20:46)
[2018-03-15 13:12] LABS: Clarity Clear (Clear)
[2018-03-15 13:13] LABS: Bilirubin Negative (Negative); Blood, Urine Negative (Negative); Glucose, Urine (Dipstick) Negative (Negative); Leukocyte Small (Negative); Nitrite Negative (Negative); Protein, Urine (Dipstick) Negative (Neg-Trace); Specific Gravity, Urine 1.015 (1.005-1.030); Urobilinogen 0.2 mg/dL (0.2-1.0)
[2018-03-15 13:20] LABS: Bacteria/HPF None Seen HPF (None Seen); Crystals/HPF None Seen HPF (Negative); Hyaline Casts/LPF NONE SEEN LPF (0-3 Hyaline); Other Casts/LPF None Seen LPF (0-3 Hyaline); Oval Fat Bodies/HPF None Seen HPF (None Seen); RBC/HPF None Seen HPF (0-3); Renal Epithelial None Seen HPF (0-3); Sperm/HPF None Seen HPF (None Seen); Squamous Epithelial None Seen HPF (0-3); Transitional Epithelial NONE SEEN HPF (0-3); Trichomonas/HPF None Seen HPF (None Seen); WBC/HPF 0-3 HPF (0-3); Yeast-All Forms None Seen HPF (None Seen)
[2018-03-15] MEDS ORDERED: Nystatin Cream 15 GM TUBE TOP PRN (13:45)
[2018-03-15] MEDS: HumaLOG 300 UNITS/3 ML VIAL SC PRN (17:29)
[2018-03-15] MEDS: Enoxaparin Sodium 40 MG/0.4 ML SYRINGE SC SCH (20:44)
[2018-03-15] MEDS: Zolpidem Tartrate 5 MG TAB PO PRN (20:49)
[2018-03-16 05:07] LABS: Hemoglobin 10.1 g/dL (12.0-16.0); Platelet Count 187 thou/uL (130-400)
[2018-03-16 05:17] VITALS: BP 150/60; TEMP 98.5
[2018-03-16] MEDS: metFORMIN 500 MG TAB PO SCH (09:16)
[2018-03-16] MEDS: predniSONE 20 MG TAB PO SCH (09:16)
[2018-03-16] MEDS: Furosemide 20 MG TAB PO SCH (09:17)
[2018-03-16] MEDS: Dronedarone HCl 400 MG TAB PO SCH (09:17)
[2018-03-16] MEDS: Potassium Chloride 20 MEQ TAB PO SCH (09:17)
[2018-03-16] MEDS: Metoprolol Tartrate 25 MG TAB PO SCH (09:18)
[2018-03-16] MEDS: Lisinopril 20 MG TAB PO SCH (09:18)
[2018-03-16] MEDS: Magnesium Oxide 400 MG TAB PO SCH (09:18)
[2018-03-16] MEDS: Amlodipine 5 MG TAB PO SCH (09:19)
[2018-03-16] MEDS: cloNIDine 0.1 MG TAB PO SCH (09:21)
[2018-03-16] MEDS: Doxycycline Hyclate 100 MG TAB PO SCH (09:21)
[2018-03-16] MEDS: PARoxetine 20 MG TAB PO SCH (09:21)
[2018-03-16] MEDS: Arformoterol 15 MCG/2 ML NEB NEB SCH (09:21)
== END 2018-03-16 15:50 | disposition home or self-care (01) | DRG 193 ==
LOC: BURMED 19:26
PROVIDERS: ADMIT Family Medicine; ATTEND Family Medicine
DX: J18.1 Lobar pneumonia, unspecified organism (principal); J96.01 Acute respiratory failure with hypoxia; I50.30 Unspecified diastolic (congestive) heart failure; E87.1 Hypo-osmolality and hyponatremia; N17.9 Acute kidney failure, unspecified; F41.9 Anxiety disorder, unspecified; E78.5 Hyperlipidemia, unspecified; I11.0 Hypertensive heart disease with heart failure; I48.0 Paroxysmal atrial fibrillation; I35.1 Nonrheumatic aortic (valve) insufficiency; E11.9 Type 2 diabetes mellitus without complications; Z85.038 Personal history of other malignant neoplasm of large intestine; Z85.3 Personal history of malignant neoplasm of breast; Z85.118 Personal history of other malignant neoplasm of bronchus and lung; Z92.3 Personal history of irradiation; Z92.21 Personal history of antineoplastic chemotherapy; Z90.49 Acquired absence of other specified parts of digestive tract; Z90.710 Acquired absence of both cervix and uterus; Z98.890 Other specified postprocedural states; Z79.84 Long term (current) use of oral hypoglycemic drugs; Z91.041 Radiographic dye allergy status
CPT/HCPCS: 36415; 36416; 71046; 80048; 80053; 81003; 81015; 82565; 85014; 85018; 85025; 85049; 87086; G8978-GP-CI; G8979-GP-CI; G8987-GO-CJ; G8988-GO-CI; J0696; J1650; J7050; J7506; J7620

== ENCOUNTER 2018-05-26 09:51 | Inpatient (IN) | payer MEDICARE, OTHER ==
[2018-05-26 10:25] LABS: #Basophils 0.1 thou/uL (0.0-0.2); #Eosinphils 0.2 thou/uL (0.0-0.7); #Lymphocytes 1.1 thou/uL (1.20-3.40); #Monocytes 0.7 thou/uL (0.11-0.59); %Basophils 1.2 % (0.0-1.0); %Eosinophils 3.9 % (0.0-10.0); %Lymphocytes 17.2 % (21.0-51.0); %Monocytes 11.8 % (0.0-10.0); %Neutrophils 65.9 % (42.0-75.0); Hemoglobin 11.7 g/dL (12.0-16.0); Mean Corpuscular HGB CONC 31.2 g/dL (32.0-36.0); Mean Corpuscular Volume 89.8 fL (78.0-98.0); Mean Platelet Volume 5.7 fL (7.4-10.4); Platelet Count 219 thou/uL (130-400); RBC Distribution Width 13.5 % (11.5-14.5); Red Blood Cell (RBC) Count 4.17 mill/uL (4.20-5.40); White Blood Cell (WBC) Count 6.1 thou/uL (4.8-10.8)
[2018-05-26] MEDS ORDERED: methylPREDNISolone Sod Succ/PF 125 MG/2 ML VIAL ONE (10:30)
[2018-05-26] MEDS ORDERED: Magnesium Sulfate 2 GM/100 ML BAG ONE (10:30)
[2018-05-26 10:41] LABS: ALT (SGPT) Less than 7 U/L (8-55); AST (SGOT) 11 U/L (5-34); Albumin 4.4 g/dL (3.4-4.8); Alkaline Phosphatase 60 U/L (40-150); Anion Gap 17 mmol/L (10-20); BUN (Urea Nitrogen) 21 mg/dL (9.8-20.1); Bilirubin, Total 0.5 mg/dL (0.2-1.2); Calc. Creatinine Clearance 0 mL/min (70-130); Calcium 10.2 mg/dL (7.8-10.44); Carbon Dioxide 27 mmol/L (23-31); Chloride 92 mmol/L (98-107); Estimated GFR-MDRD 34; Globulin 3.6 g/dL (2.4-3.5); Glucose 126 mg/dL (83-110); Potassium 4.1 mmol/L (3.5-5.1); Sodium 132 mmol/L (136-145)
[2018-05-26] MEDS ORDERED: Albuterol Sulfate 2.5 mg/3 ml Neb ONE (10:43)
[2018-05-26] MEDS ORDERED: Albuterol Sulfate 1.25 MG/3 ML NEB ONE (10:43)
[2018-05-26] MEDS ORDERED: Sodium Chloride 0.9% 100 ML ONE (10:47)
[2018-05-26] MEDS ORDERED: cefTRIAXone\\ROCEPHIN 2 GM VIAL ONE (10:47)
[2018-05-26] MEDS ORDERED: Doxycycline Hyclate 100 MG TAB ONE (11:20)
--- NOTE | 2018-05-26 11:30 | RAD ---
PORTABLE CHEST: Date: 05/26/18 Comparison is made with the prior study of 03/11/18. I also reviewed an 01/20/18 CT. FINDINGS: The heart size is stable. There is no congestive change. No large pleural effusion evident today. The re seems to be a little more volume loss in the right upper lobe than there was on the older films. T he right hilum is not particularly prominent. There is a vague density in the right upper lobe overly ing the end of the first rib. I cannot tell if it is a nodule or merely the costochondral junction of the first rib. CT would be needed to better demonstrate it. The right upper lobe is semiopaque, whic h may be in part to partial atelectasis, but there may be infiltrate in it as well. The left lung is clear. The right subclavian catheter remains in place. IMPRESSION: Increased density and slight increase in volume loss of the right upper lobe since the prior exam. Se e comments about vague right upper lobe opacity. The patient may ultimately need a follow-up CT of e chest. POS: HOME
[2018-05-26] MEDS ORDERED: Ondansetron ODT 4 MG TAB SL PRN (12:37)
[2018-05-26] MEDS ORDERED: Ondansetron PF 4 MG/2 ML Vial IVP PRN (12:37)
[2018-05-26] MEDS ORDERED: Albuterol Sulfate 2.5 mg/3 ml Neb NEB PRN (12:40)
[2018-05-26] MEDS ORDERED: Dextrose 5 %-0.45 % NaCl 1,000 ML IV SCH (12:45)
[2018-05-26 13:44] VITALS: BMI 24.1
[2018-05-26] MEDS ORDERED: HYDROcodone/Acetaminophen 5/325 mg Tablet PO PRN (18:56)
[2018-05-26] MEDS ORDERED: Zolpidem Tartrate 5 MG TAB PO PRN (18:56)
[2018-05-26] MEDS: methylPREDNISolone Sod Succ/PF 125 MG/2 ML VIAL IVP SCH (18:57)
[2018-05-26] MEDS ORDERED: Dextrose 50% Abboject 50 ML SYRINGE SLOW IVP PRN (19:20)
[2018-05-26] MEDS ORDERED: Guaifenesin DM 100-10/5 ML UDCUP PO PRN (19:20)
[2018-05-26] MEDS ORDERED: Dextrose 5% in Water 1,000 ML IV PRN (19:20)
[2018-05-26] MEDS ORDERED: Sodium Chloride 0.9% 10 ML ONE (19:41)
[2018-05-26] MEDS ORDERED: guaiFENesin/DM ER PO SCH (21:00)
[2018-05-26] MEDS: Famotidine 20 MG TAB PO SCH (21:17)
[2018-05-26] MEDS: Doxycycline Hyclate 100 MG TAB PO SCH (21:17)
[2018-05-26] MEDS: Metoprolol Tartrate 25 MG TAB PO SCH (21:18)
[2018-05-26] MEDS: Enoxaparin Sodium 30 MG/0.3 ML SYRINGE SC SCH (21:18)
[2018-05-26] MEDS: cloNIDine 0.1 MG TAB PO SCH (21:34)
[2018-05-26] MEDS: Lorazepam 0.5 MG TAB PO PRN (21:50)
[2018-05-26] MEDS: HumaLOG 300 UNITS/3 ML VIAL SC PRN (22:47)
--- NOTE | 2018-05-27 02:12 | HP ---
CHIEF COMPLAINT: Cough and shortness of breath. HISTORY OF THE PRESENT ILLNESS: Ms. Gunderson is a 73-year-old female, with past medical history of non-small cell carcinoma of the right lung, currently in remission, who presents to the emergency room with worsening cough, more forceful than her baseline cough, over the past couple of days with onset of sputum production starting today, clear in color. She had associated shortness of breath. She denies any fever. She is not on home O2. She had a history of a similar episode back in February of community-acquired pneumonia for which she was treated with Rocephin and doxycycline effectively and subsequently was weaned off O2 and discharged home after a short rehab stay. She has a history of non-small cell carcinoma of the lung on the right and is followed by Dr. Blanca Golden and has had no growth of her lesion or evidence of metabolic activity on PET scan, last performed in February per patient's reports. She denies any sick contacts. She is up-to-date on her immunizations. She had influenza in April 2017, but has not had influenza this flu season. In the emergency room, a chest x-ray showed increased density and slight increase in volume loss of the right upper lobe since the prior study. There were no congestive changes. There were no large pleural effusions evident. A vague density in the right upper lobe overlying the end of the first rib is present and CT is recommended to better demonstrate it. Right upper lobe is semiopaque, which may be in part due to atelectasis, but there may be i nfiltrate in it as well. She was hypoxic, but her O2 saturation improved with O2 and neb treatments. She was given Rocephin in the emergency room and Solu-Medrol and has been admitted to the floor for further care. She reports she is feeling much better. She still has quite a prominent cough. She feels like the oxygen makes her cough more. PAST MEDICAL HISTORY: 1. Non-small cell carcinoma of the lung on the right, said to be in remission. 2. Left breast cancer, T2 N3 M0, triple negative, status post chemo and radiation in 2009. 3. Hypertension. 4. Anxiety. 5. Adenocarcinoma of sigmoid colon, T3 N0 M0. 6. Type 2 diabetes. 7. Hyperlipidemia. 8. Recurrent urinary tract infections. 9. Microalbuminuria. 10. Iron-deficiency anemia. 11. Paroxysmal atrial fibrillation, not a candidate for anticoagulation, but on antiarrhythmic therapy. 12. Systolic congestive heart failure. 13. Moderate aortic regurgitation. 14. Anemia of chronic disease. 15. Cervical degenerative disease. 16. History of thoracic compression fracture s/p kyphoplasty. 17. Chronic hyponatremia with baseline sodium of about 132. 18. Chronic kidney disease, stage 3. PAST SURGICAL HISTORY: 1. Cholecystectomy in 2006. 2. Hysterectomy in 1988. 3. Left breast lumpectomy and axillary node dissection in July 2010. 4. Laparoscopic right hemicolectomy for severe appendicitis in December 2010. 5. Laparoscopic low anterior resection for colon cancer in March 2011. 6. Kyphoplasty in October 2017, Dr. Leal. ALLERGIES: TO IODINATED CONTRAST AND SULFA. SOCIAL HISTORY: The patient is a nonsmoker. She denies alcohol or illicit drug use. The patient lives alone in [place], but has a very active daughter-in- law who lives here locally and a daughter who lives within a couple of hours of her. She currently does not have a medical power of estate planning attorney or advance directive indicated; however, she reports that she wants removal of life support in the event of a terminal illness. She, however, wants to be a full code. FAMILY HISTORY: Her father is and had a history of diabetes. She had a younger brother with brain tumor, older brother with chronic anemia, and a daughter who had cervical cancer. CURRENT MEDICATIONS: 1. Lovastatin 20 mg p.o. q.p.m. 2. Hydrocodone/acetaminophen 5/325 one p.o. q.6 hours p.r.n. pain. 3. Metformin ER 1000 mg p.o. at bedtime. 4. Potassium chloride 20 mEq p.o. daily. 5. Magnesium oxide 200 mg p.o. b.i.d. with meals. 6. Metoprolol tartrate 50 mg p.o. b.i.d. 7. Multaq 400 mg p.o. b.i.d. with meals. 8. Ativan 0.5 mg p.o. q.4 hours p.r.n. anxiety. 9. Zestril 40 mg p.o. daily. 10. Paxil 20 mg p.o. daily. 11. Clonidine 0.1 mg p.o. b.i.d. 12. Ambien 5 mg p.o. at bedtime. REVIEW OF SYSTEMS: GENERAL: The patient denies fevers or chills. She admits to fatigue above her baseline due to the cough. No focal weakness. HEENT: Denies any vision changes, nasal congestion, rhinorrhea, sore throat, or ear pain. CARDIOVASCULAR: Denies chest pain, palpitations, orthopnea, or paroxysmal nocturnal dyspnea. RESPIRATORY: Denies hemoptysis. Positive cough and dyspnea as well as clear sputum. GASTROINTESTINAL: Denies nausea, vomiting, diarrhea, melena, hematochezia, or abdominal pain. LYMPHATIC: The patient has had some swelling in her lower extremities recently , but reports that this has been somewhat improved. HEMATOLOGIC: The patient denies any bleeding. GENITOURINARY: Denies dysuria or foul-smelling urine. Denies frequency. She does report a recent decreased urinary output. ENDOCRINE: The patient has a history of diabetes and has had no recent hyperglycemia. DERMATOLOGIC: The patient has long-standing rash to the anterior tibial region on the right. PHYSICAL EXAMINATION: VITAL SIGNS: Temperature 98.4, heart rate 82, respirations 20, O2 saturation 97 % on 3 L, blood pressure 151/67. GENERAL: Well-developed, well-nourished female in no acute distress. Alert and oriented x3. HEENT: Pupils equal, round, reactive to light, accommodation; extraocular muscles intact. Nares are patent without discharge. Tongue protrudes in the midline. NECK: Supple without lymphadenopathy, thyromegaly, JVD, or bruit. HEART: Regular rate and rhythm with normal S1, S2, distant heart sounds. No murmurs, clicks, rubs, or gallops. LUNGS: Coarse breath sounds throughout with rhonchi that is most pronounced in the right upper and lower lobes and diminished at the left lung base. No wheezing. No respiratory distress. ABDOMEN: Positive bowel sounds in all 4 quadrants. Soft, nontender, nondistended. No masses, guarding, or rebound tenderness. EXTREMITIES: No cyanosis or clubbing. Trace ankle edema. NEUROLOGIC: Cranial nerves 2 through 12 grossly intact with no focal deficits. PSYCHIATRIC: Mood and affect appropriate. LABORATORY DATA: CBC: White count 6.1 with 65% neutrophils, 17% lymphocytes, hemoglobin 11.7, hematocrit 37.4, platelets 219. Sodium 132, potassium 4.1, chloride 92, bicarb 27, BUN 21, creatinine 1.5, glucose 126, lactic acid 0.9, calcium 10.2. T bilirubin 0.5, AST 11, ALT less than 7, alkaline phosphatase 60. Troponin I less than 0.010. BNP 112.8. Albumin 4.4, globulin 3.6. Micro; influenza A and B are negative. IMAGING STUDIES: Chest x-ray as per HPI. ASSESSMENT AND PLAN: 1. Community-acquired pneumonia with hypoxia. The patient was given Rocephin in the emergency room, we will continue that. We will add doxycycline as we did in February as this was effective for her and fluoroquinolone would interact with her Multaq. She will be on O2 and we will continue her nebulizer treatments. We will get a CT scan of the chest, but due to her allergy to iodinated contrast and her creatinine, we will get that without contrast. She wants to wait until the morning for that. 2. History of bronchospasm. I do not currently hear any wheezing, but she has had this in the past, so we will continue her Solu-Medrol for now. 3. Normocytic anemia. Her H&H is actually better than her baseline, which may go along with some dehydration with the reported decreased urine output. 4. Hyponatremia. The patient's sodium is at baseline. 5. Chronic kidney disease, stage 3. The patient currently may be at a new baseline at 1.5. We will hold her lisinopril and her metformin and repeat her metabolic profile in the morning. 6. Diabetes mellitus type 2. The patient's metformin will be held and she will be placed on Accu-Cheks q.a.c. and at bedtime with sliding scale correction algorithm with Humalog. 7. History of congestive heart failure. The patient's BNP was minimally elevated on her admission with a chest x-ray without fluid overload. She has received IV fluids since her ER admission. We will go ahead and saline lock her IV at this time. 8. Hypertension. The patient will be continued on her current regimen with a goal blood pressure of less than 140/90. 9. Anxiety. She will be continued on her Paxil and lorazepam p.r.n. 10. Insomnia. She has asked to have her zolpidem at night. 11. History of non-small cell carcinoma of the lung on the right. The patient is due for a repeat CT of the chest in June. We will have a CT tomorrow without contrast in the morning per patient request. 12. Hyperlipidemia. The patient does not want to be on any unnecessary medications any longer, so I am going to stop her statin therapy at this point. 13. History of paroxysmal atrial fibrillation. Currently, she is regular rate and rhythm and not a candidate for anticoagulation. Due to the fact she has had 2 episodes of atrial fibrillation and continues to have stress on the heart, I feel it is necessary to continue her Multaq at this time and watch out for potential mkxq-nt-huwz interactions. 14. History of thoracic compression fracture status post kyphoplasty. We will order Adger p.r.n. 15. Prophylaxis. With history of malignancy and risk for falls, I would rather not do SCDs and we will do Lovenox prophylaxis instead. She has had no evidence of recent bleeding. We will place the patient on Pepcid. 16. Code status. The patient desires full code, but does want advance directives to remove care in the event of a terminal illness. Job ID: [id number] MTDD
[2018-05-27] MEDS: Lorazepam 0.5 MG TAB PO PRN ×3 (03:11→21:21)
[2018-05-27] MEDS: methylPREDNISolone Sod Succ/PF 125 MG/2 ML VIAL IVP SCH ×3 (03:11→18:22)
[2018-05-27 05:53] LABS: #Lymphocytes 0.4 thou/uL (1.20-3.40); #Monocytes 0.1 thou/uL (0.11-0.59); #Neutrophils 2.9 thou/uL (1.40-6.50); %Basophils 0.3 % (0.0-1.0); %Eosinophils 0.1 % (0.0-10.0); %Lymphocytes 12.3 % (21.0-51.0); %Monocytes 2.9 % (0.0-10.0); %Neutrophils 84.4 % (42.0-75.0); Hemoglobin 10.2 g/dL (12.0-16.0); Mean Corpuscular HGB CONC 31.6 g/dL (32.0-36.0); Mean Corpuscular Hemoglobin 28.8 pg (27.0-31.0); Mean Corpuscular Volume 91.2 fL (78.0-98.0); Mean Platelet Volume 5.8 fL (7.4-10.4); Platelet Count 162 thou/uL (130-400); RBC Distribution Width 13.8 % (11.5-14.5); Red Blood Cell (RBC) Count 3.54 mill/uL (4.20-5.40); White Blood Cell (WBC) Count 3.4 thou/uL (4.8-10.8)
[2018-05-27 06:29] LABS: Anion Gap 17 mmol/L (10-20); BUN (Urea Nitrogen) 21 mg/dL (9.8-20.1); Calc. Creatinine Clearance 49 mL/min (70-130); Calcium 9.2 mg/dL (7.8-10.44); Carbon Dioxide 19 mmol/L (23-31); Chloride 97 mmol/L (98-107); Estimated GFR-MDRD 50; Glucose 180 mg/dL (83-110); Potassium 4.4 mmol/L (3.5-5.1); Sodium 129 mmol/L (136-145)
[2018-05-27] MEDS: cloNIDine 0.1 MG TAB PO SCH ×2 (10:39→21:20)
[2018-05-27] MEDS: Potassium Chloride 20 MEQ TAB PO SCH (10:40)
[2018-05-27] MEDS: Magnesium Oxide 400 MG TAB PO SCH ×2 (10:40→17:18)
[2018-05-27] MEDS: Dronedarone HCl 400 MG TAB PO SCH ×2 (10:40→17:19)
[2018-05-27] MEDS: Metoprolol Tartrate 25 MG TAB PO SCH ×2 (10:41→21:20)
[2018-05-27] MEDS: PARoxetine 20 MG TAB PO SCH (10:42)
[2018-05-27] MEDS: Doxycycline Hyclate 100 MG TAB PO SCH ×2 (10:43→21:21)
[2018-05-27] MEDS: Acetaminophen 325 MG TAB PO PRN (10:48)
[2018-05-27] MEDS: cefTRIAXone\\ROCEPHIN 1 GM in Sodium Chloride 0.9% 100 ML IVPB SCH (10:49)
[2018-05-27] MEDS: HumaLOG 300 UNITS/3 ML VIAL SC PRN ×4 (10:58→21:31)
[2018-05-27] MEDS: Famotidine 20 MG TAB PO SCH (21:20)
[2018-05-27] MEDS: Enoxaparin Sodium 30 MG/0.3 ML SYRINGE SC SCH (21:21)
--- NOTE | 2018-05-27 21:42 | CT ---
CT OF THE THORAX WITHOUT CONTRAST 05/27/18 Comparison is made with a prior CT dated 01/20/18. Axial slices were acquired, then coronal and sagittal reconstructions were done. The patient has know n right lung neoplasm. One vaguely sees the right perihilar mass through the fluid and consolidated lung. It measures about 6.5 cm in length today which is comparable to the January study. Consolidated lung and fluid is seen around it as before. This appears to particularly involve the superior segment of the right lower lo be. While the appearance is somewhat similar to the prior exam, the various small bronchial branches leading to the mass seems smaller today and travel less peripherally. Thus, some of the airways have closed up and those that are open seem narrower than they were before, perhaps being compressed. This results in some increased volume loss on this side compared to before. Question was raised on the pl ain radiograph about a density in the right apex. There is a nodular area in the right apex that by i tself looks more like scarring than not. I would not; however, it was not this prominent on the Novem eben study. It will need to be watched. There are some areas of pleural thickening and irregularity bi laterally, but particularly inside the chest wall of the left upper chest anteriorly. The appearance of these areas is approximately the same as before. No bony destructive lesions were appreciated at t his time. Vertebroplasties of several mid thoracic vertebrae were noted. Scans into the upper abdomen showed no gross hepatic mass in the area scanned. The left adrenal gland seems somewhat bulbous. IMPRESSION: 1. Right perihilar mass about the same size as before, approximately 6.4 to 6.5 cm long. 2. Consolidated lung and fluid around the mass seems a little denser with fewer air bronchograms in it and some increased narrowing of bronchi leading to the area. This results in a little more vol ume loss than before. 3. Nodular area in the right lung apex looks like scarring, but it was not present to the same d egree on the January scan, so it should be watched on future studies. POS: HOME
[2018-05-28] MEDS: methylPREDNISolone Sod Succ/PF 125 MG/2 ML VIAL IVP SCH ×3 (03:02→20:30)
[2018-05-28] MEDS: Lorazepam 0.5 MG TAB PO PRN ×3 (05:59→20:36)
[2018-05-28] MEDS: Acetaminophen 325 MG TAB PO PRN ×2 (09:11→13:46)
[2018-05-28] MEDS: Doxycycline Hyclate 100 MG TAB PO SCH (09:12)
[2018-05-28] MEDS: PARoxetine 20 MG TAB PO SCH (09:12)
[2018-05-28] MEDS: cloNIDine 0.1 MG TAB PO SCH ×2 (09:12→20:31)
[2018-05-28] MEDS: Metoprolol Tartrate 25 MG TAB PO SCH ×2 (09:12→20:31)
[2018-05-28] MEDS: Dronedarone HCl 400 MG TAB PO SCH ×2 (09:13→17:31)
[2018-05-28] MEDS: Magnesium Oxide 400 MG TAB PO SCH ×2 (09:13→17:30)
[2018-05-28] MEDS: Potassium Chloride 20 MEQ TAB PO SCH (09:14)
[2018-05-28] MEDS: HumaLOG 300 UNITS/3 ML VIAL SC PRN ×3 (09:16→21:49)
[2018-05-28] MEDS: cefTRIAXone\\ROCEPHIN 1 GM in Sodium Chloride 0.9% 100 ML IVPB SCH (11:48)
[2018-05-28] MEDS ORDERED: guaiFENesin ER 600 MG TAB PO PRN (14:31)
[2018-05-28] MEDS ORDERED: Doxycycline 100 MG CAP ONE (20:09)
[2018-05-28] MEDS: Enoxaparin Sodium 30 MG/0.3 ML SYRINGE SC SCH (20:30)
[2018-05-28] MEDS: Famotidine 20 MG TAB PO SCH (20:31)
[2018-05-28] MEDS: Doxycycline 100 MG CAP PO SCH (20:31)
[2018-05-29 05:32] LABS: #Lymphocytes 0.4 thou/uL (1.20-3.40); #Monocytes 0.1 thou/uL (0.11-0.59); #Neutrophils 5.4 thou/uL (1.40-6.50); %Basophils 0.2 % (0.0-1.0); %Monocytes 2.1 % (0.0-10.0); %Neutrophils 90.8 % (42.0-75.0); Hemoglobin 10.9 g/dL (12.0-16.0); Mean Corpuscular HGB CONC 32.2 g/dL (32.0-36.0); Mean Corpuscular Hemoglobin 28.8 pg (27.0-31.0); Mean Corpuscular Volume 89.2 fL (78.0-98.0); Mean Platelet Volume 5.7 fL (7.4-10.4); Platelet Count 163 thou/uL (130-400); RBC Distribution Width 13.2 % (11.5-14.5); Red Blood Cell (RBC) Count 3.77 mill/uL (4.20-5.40)
[2018-05-29 05:40] LABS: ALT (SGPT) 9 U/L (8-55); AST (SGOT) 11 U/L (5-34); Albumin 3.5 g/dL (3.4-4.8); Alkaline Phosphatase 40 U/L (40-150); Anion Gap 12 mmol/L (10-20); BUN (Urea Nitrogen) 25 mg/dL (9.8-20.1); Bilirubin, Total 0.2 mg/dL (0.2-1.2); Calc. Creatinine Clearance 54 mL/min (70-130); Calcium 8.9 mg/dL (7.8-10.44); Carbon Dioxide 26 mmol/L (23-31); Chloride 94 mmol/L (98-107); Estimated GFR-MDRD 56; Globulin 2.8 g/dL (2.4-3.5); Glucose 156 mg/dL (83-110); Potassium 4.5 mmol/L (3.5-5.1); Protein, Total 6.3 g/dL (6.0-8.3); Sodium 127 mmol/L (136-145)
[2018-05-29] MEDS: HumaLOG 300 UNITS/3 ML VIAL SC PRN (08:11)
[2018-05-29] MEDS: Metoprolol Tartrate 25 MG TAB PO SCH (08:14)
[2018-05-29] MEDS: cloNIDine 0.1 MG TAB PO SCH (08:14)
[2018-05-29] MEDS: PARoxetine 20 MG TAB PO SCH (08:14)
[2018-05-29] MEDS: methylPREDNISolone Sod Succ/PF 125 MG/2 ML VIAL IVP SCH (08:15)
[2018-05-29] MEDS: Magnesium Oxide 400 MG TAB PO SCH (08:15)
[2018-05-29] MEDS: Dronedarone HCl 400 MG TAB PO SCH (08:15)
[2018-05-29] MEDS: Potassium Chloride 20 MEQ TAB PO SCH (08:15)
[2018-05-29] MEDS: Doxycycline 100 MG CAP PO SCH (08:16)
--- NOTE | 2018-05-29 09:09 | RAD ---
CHEST 2 VIEWS: HISTORY: Cough. COMPARISON: 05/26/2018. FINDINGS: Again noted is abnormal right upper lobe opacification with some minimal upper lobe volume loss, evid ence for atelectasis and/or pneumonia and/or underlying mass. Multiple levels of vertebroplasty venegas ges. Surgical clips in the left axilla. Right subclavian catheter and injection port. Stable left chest. IMPRESSION: Stable right upper lobe volume loss with abnormal opacity probably representing some component of ate lectasis and/or pneumonia and/or mass, stable. POS: CONNIE
[2018-05-29] MEDS: Lorazepam 0.5 MG TAB PO PRN (09:35)
[2018-05-29] MEDS: cefTRIAXone\\ROCEPHIN 1 GM in Sodium Chloride 0.9% 100 ML IVPB SCH (11:36)
[2018-05-29] MEDS: Acetaminophen 325 MG TAB PO PRN (11:44)
[2018-05-29] MEDS ORDERED: Doxycycline 100 MG CAP PO SCH (15:15)
[2018-05-29 17:03] VITALS: BP 151/76; TEMP 97.9
== END 2018-05-29 17:05 | disposition swing bed (61) | DRG 194 ==
LOC: BURERS 09:51 → BURMED 11:15
PROVIDERS: ADMIT Family Medicine; ATTEND Family Medicine
DX: J18.9 Pneumonia, unspecified organism (principal); E87.1 Hypo-osmolality and hyponatremia; R09.02 Hypoxemia; D64.9 Anemia, unspecified; N18.3 Chronic kidney disease, stage 3 (moderate); E11.22 Type 2 diabetes mellitus with diabetic chronic kidney disease; I12.9 Hypertensive chronic kidney disease with stage 1 through stage 4 chronic kidney disease, or unspecified chronic kidney disease; F41.9 Anxiety disorder, unspecified; G47.00 Insomnia, unspecified; E78.5 Hyperlipidemia, unspecified; Z85.118 Personal history of other malignant neoplasm of bronchus and lung; Z85.3 Personal history of malignant neoplasm of breast; Z85.038 Personal history of other malignant neoplasm of large intestine; Z90.49 Acquired absence of other specified parts of digestive tract; Z90.710 Acquired absence of both cervix and uterus; Z88.2 Allergy status to sulfonamides; Z91.041 Radiographic dye allergy status; Z79.84 Long term (current) use of oral hypoglycemic drugs
CPT/HCPCS: 36415; 36416; 71045; 71046; 71250; 80048; 80053; 83605; 83880; 84484; 85025; 87040; 87804; 93005; 96361; 96365; 96374; 96375; J0696; J1650; J1956; J2930; J3475; J7050; J7611; J7620

== ENCOUNTER 2018-05-29 14:27 | Inpatient (IN) | payer MEDICARE, OTHER ==
[2018-05-29] MEDS ORDERED: Non-Formulary Item 1 EACH (Acetaminophen [Tylenol] 650 MG) PO PRN (18:51)
[2018-05-29] MEDS ORDERED: Ondansetron ODT 4 MG TAB SL PRN (18:51)
[2018-05-29] MEDS ORDERED: Albuterol Sulfate 2.5 mg/3 ml Neb NEB PRN (18:51)
[2018-05-29] MEDS ORDERED: methylPREDNISolone Sod Succ/PF 125 MG/2 ML VIAL IVP SCH ×2 (19:00→20:15)
[2018-05-29] MEDS: HYDROcodone/Acetaminophen 5/325 mg Tablet PO PRN (19:36)
[2018-05-29] MEDS: guaiFENesin ER 600 MG TAB PO PRN (19:36)
[2018-05-29] MEDS ORDERED: Bacteriostatic Water 30 ML VIAL FS PRN (20:04)
[2018-05-29] MEDS ORDERED: Acetaminophen 325 MG TAB PO PRN (20:07)
[2018-05-29] MEDS: Sodium Chloride 0.9% 10 ML ONE (21:03)
[2018-05-29] MEDS: Enoxaparin Sodium 30 MG/0.3 ML SYRINGE SC SCH (21:03)
[2018-05-29] MEDS: Doxycycline 100 MG CAP PO SCH (21:04)
[2018-05-29] MEDS: Atorvastatin Calcium 10 MG TAB PO SCH (21:04)
[2018-05-29] MEDS: Famotidine 20 MG TAB PO SCH (21:04)
[2018-05-29] MEDS: Metoprolol Tartrate 25 MG TAB PO SCH (21:04)
[2018-05-29] MEDS: cloNIDine 0.1 MG TAB PO SCH (21:05)
[2018-05-29] MEDS: Lorazepam 0.5 MG TAB PO PRN (21:05)
[2018-05-30 05:41] LABS: Hemoglobin 11.4 g/dL (12.0-16.0); Platelet Count 177 thou/uL (130-400)
[2018-05-30] MEDS: HYDROcodone/Acetaminophen 5/325 mg Tablet PO PRN ×2 (09:25→19:43)
[2018-05-30] MEDS: guaiFENesin ER 600 MG TAB PO PRN ×2 (09:26→19:43)
[2018-05-30] MEDS: PARoxetine 20 MG TAB PO SCH (09:27)
[2018-05-30] MEDS: Doxycycline 100 MG CAP PO SCH ×2 (09:27→21:34)
[2018-05-30] MEDS: Dronedarone HCl 400 MG TAB PO SCH ×2 (09:28→17:26)
[2018-05-30] MEDS: Lisinopril 20 MG TAB PO SCH (09:28)
[2018-05-30] MEDS: methylPREDNISolone Sod Succ/PF 125 MG/2 ML VIAL IVP SCH ×2 (09:29→21:30)
[2018-05-30] MEDS: Metoprolol Tartrate 25 MG TAB PO SCH ×2 (09:29→21:32)
[2018-05-30] MEDS: Magnesium Oxide 400 MG TAB PO SCH ×2 (09:30→17:27)
[2018-05-30] MEDS: cloNIDine 0.1 MG TAB PO SCH ×2 (09:31→21:34)
[2018-05-30] MEDS: cefTRIAXone\\ROCEPHIN 1 GM VIAL IVPB SCH (12:21)
[2018-05-30] MEDS ORDERED: Dextrose 5% in Water 1,000 ML IV PRN (18:13)
[2018-05-30] MEDS ORDERED: Dextrose 50% Abboject 50 ML SYRINGE IVP PRN (18:13)
[2018-05-30] MEDS: HumaLOG 300 UNITS/3 ML VIAL SC PRN (18:27)
[2018-05-30] MEDS: Sodium Chloride 0.9% 10 ML ONE (21:31)
[2018-05-30] MEDS: Enoxaparin Sodium 30 MG/0.3 ML SYRINGE SC SCH (21:32)
[2018-05-30] MEDS: Lorazepam 0.5 MG TAB PO PRN (21:34)
[2018-05-30] MEDS: Atorvastatin Calcium 10 MG TAB PO SCH (21:34)
[2018-05-30] MEDS: Famotidine 20 MG TAB PO SCH (21:34)
[2018-05-30] MEDS: metFORMIN XR 500 MG TAB PO SCH (21:34)
[2018-05-31] MEDS: Doxycycline 100 MG CAP PO SCH ×2 (08:37→21:21)
[2018-05-31] MEDS: PARoxetine 20 MG TAB PO SCH (08:38)
[2018-05-31] MEDS: methylPREDNISolone Sod Succ/PF 125 MG/2 ML VIAL IVP SCH (08:38)
[2018-05-31] MEDS: Magnesium Oxide 400 MG TAB PO SCH ×2 (08:38→17:07)
[2018-05-31] MEDS: Metoprolol Tartrate 25 MG TAB PO SCH ×2 (08:39→21:15)
[2018-05-31] MEDS: cloNIDine 0.1 MG TAB PO SCH ×2 (08:40→19:00)
[2018-05-31] MEDS: Dronedarone HCl 400 MG TAB PO SCH ×2 (08:40→17:06)
[2018-05-31] MEDS: Lisinopril 20 MG TAB PO SCH (08:42)
[2018-05-31] MEDS: HYDROcodone/Acetaminophen 5/325 mg Tablet PO PRN ×2 (08:48→15:12)
[2018-05-31] MEDS: guaiFENesin ER 600 MG TAB PO PRN (08:48)
[2018-05-31] MEDS: HumaLOG 300 UNITS/3 ML VIAL SC PRN ×2 (08:51→17:48)
[2018-05-31] MEDS: cefTRIAXone\\ROCEPHIN 1 GM VIAL IVPB SCH (12:36)
[2018-05-31] MEDS ORDERED: Fluticasone Propionate Nasal Spray 16 gm Bottle NASAL SCH (14:15)
[2018-05-31] MEDS: predniSONE 20 MG TAB PO SCH (17:06)
[2018-05-31] MEDS: Lorazepam 0.5 MG TAB PO PRN (17:28)
[2018-05-31] MEDS ORDERED: HYDROcodone/Acetaminophen 5/325 mg Tablet PO SCH (17:30)
[2018-05-31] MEDS: Enoxaparin Sodium 30 MG/0.3 ML SYRINGE SC SCH (21:15)
[2018-05-31] MEDS: metFORMIN XR 500 MG TAB PO SCH (21:15)
[2018-05-31] MEDS: Famotidine 20 MG TAB PO SCH (21:15)
[2018-05-31] MEDS: Atorvastatin Calcium 10 MG TAB PO SCH (21:16)
[2018-05-31] MEDS ORDERED: Doxycycline 100 MG CAP ONE (21:19)
[2018-06-01 05:28] LABS: Hemoglobin 11.7 g/dL (12.0-16.0); Platelet Count 181 thou/uL (130-400)
[2018-06-01] MEDS: Fluticasone Propionate Nasal Spray 16 gm Bottle NASAL SCH (08:40)
[2018-06-01] MEDS: Doxycycline 100 MG CAP PO SCH ×2 (08:41→21:12)
[2018-06-01] MEDS: PARoxetine 20 MG TAB PO SCH (08:41)
[2018-06-01] MEDS: Magnesium Oxide 400 MG TAB PO SCH ×2 (08:41→17:35)
[2018-06-01] MEDS: predniSONE 20 MG TAB PO SCH ×2 (08:42→17:35)
[2018-06-01] MEDS: Dronedarone HCl 400 MG TAB PO SCH ×2 (08:42→17:35)
[2018-06-01] MEDS: HYDROcodone/Acetaminophen 5/325 mg Tablet PO PRN ×2 (08:43→18:43)
[2018-06-01] MEDS: Lorazepam 0.5 MG TAB PO PRN ×2 (08:43→18:43)
[2018-06-01] MEDS: cloNIDine 0.1 MG TAB PO SCH ×2 (08:46→21:13)
[2018-06-01] MEDS: Metoprolol Tartrate 25 MG TAB PO SCH ×2 (08:46→21:13)
[2018-06-01] MEDS: Lisinopril 20 MG TAB PO SCH (08:46)
[2018-06-01] MEDS: cefTRIAXone\\ROCEPHIN 1 GM in Sodium Chloride 0.9% 100 ML IVPB SCH (11:51)
[2018-06-01 12:06] VITALS: BMI 24.4
[2018-06-01] MEDS: Guaifenesin DM 100-10/5 ML UDCUP PO PRN (13:14)
[2018-06-01] MEDS: HumaLOG 300 UNITS/3 ML VIAL SC PRN (17:42)
[2018-06-01] MEDS: Enoxaparin Sodium 30 MG/0.3 ML SYRINGE SC SCH (21:12)
[2018-06-01] MEDS: metFORMIN XR 500 MG TAB PO SCH (21:12)
[2018-06-01] MEDS: Famotidine 20 MG TAB PO SCH (21:13)
[2018-06-01] MEDS: Atorvastatin Calcium 10 MG TAB PO SCH (21:13)
[2018-06-02] MEDS: cloNIDine 0.1 MG TAB PO SCH ×2 (08:11→20:32)
[2018-06-02] MEDS: Furosemide 40 MG TAB PO SCH (08:11)
[2018-06-02] MEDS: Magnesium Oxide 400 MG TAB PO SCH ×2 (08:13→17:12)
[2018-06-02] MEDS: Dronedarone HCl 400 MG TAB PO SCH ×2 (08:13→17:12)
[2018-06-02] MEDS: Doxycycline 100 MG CAP PO SCH ×2 (08:14→20:32)
[2018-06-02] MEDS: HYDROcodone/Acetaminophen 5/325 mg Tablet PO PRN ×2 (08:14→16:14)
[2018-06-02] MEDS: Lisinopril 20 MG TAB PO SCH (08:15)
[2018-06-02] MEDS: Lorazepam 0.5 MG TAB PO PRN ×2 (08:15→16:14)
[2018-06-02] MEDS: predniSONE 20 MG TAB PO SCH ×2 (08:15→17:12)
[2018-06-02] MEDS: Metoprolol Tartrate 25 MG TAB PO SCH ×2 (08:15→20:33)
[2018-06-02] MEDS: Potassium Chloride 20 MEQ TAB PO SCH (08:15)
[2018-06-02] MEDS: PARoxetine 20 MG TAB PO SCH (08:16)
[2018-06-02] MEDS: Fluticasone Propionate Nasal Spray 16 gm Bottle NASAL SCH (08:19)
[2018-06-02] MEDS: guaiFENesin ER 600 MG TAB PO PRN (08:23)
[2018-06-02] MEDS: cefTRIAXone\\ROCEPHIN 1 GM in Sodium Chloride 0.9% 100 ML IVPB SCH (11:41)
[2018-06-02] MEDS: Furosemide 20 MG TAB PO SCH (11:41)
[2018-06-02] MEDS: HumaLOG 300 UNITS/3 ML VIAL SC PRN (17:18)
[2018-06-02] MEDS ORDERED: Ketorolac Tromethamine 30 MG/ML VIAL ONE (19:03)
[2018-06-02] MEDS: Ketorolac Tromethamine 30 MG/ML VIAL IVP PRN (19:05)
[2018-06-02] MEDS: metFORMIN XR 500 MG TAB PO SCH (20:32)
[2018-06-02] MEDS: Atorvastatin Calcium 10 MG TAB PO SCH (20:33)
[2018-06-02] MEDS: Famotidine 20 MG TAB PO SCH (20:33)
[2018-06-02] MEDS: Enoxaparin Sodium 30 MG/0.3 ML SYRINGE SC SCH (20:33)
--- NOTE | 2018-06-02 20:41 | CT ---
CT OF THE BRAIN WITHOUT CONTRAST: 06/02/18 INDICATION: History of headache and cancer. COMPARISON: Prior CT of the brain with and without contrast dated 10/25/16. FINDINGS: Mild generalized cerebral and cerebellar atrophy is stable. No acute infarct, hemorrhage or hydroceph alus is present. Septum pellucidum and third ventricle are midline. The skull base and paranasal sinu ses are clear. IMPRESSION: No acute intracranial abnormality. POS: [facility]
--- NOTE | 2018-06-02 20:51 | CT ---
CT OF THE SINUSES WITHOUT CONTRAST 06/02/18 INDICATION: History of headache and cancer. COMPARISON: There is mild mucosal thickening within the maxillary sinuses. There is partial effusion involving th e right mastoid air cells. Ethmoidal air cells, frontal sinuses and sphenoid sinuses are clear. The v isualized posterior nasopharynx appears within normal limits. The visualized orbits and intracranial contents are unremarkable. No acute fracture or subluxation is evident. IMPRESSION: 1. Mild mucosal thickening within the maxillary sinuses. 2. Partial effusion of the right mastoid air. 1. POS: [facility]
[2018-06-03 05:23] LABS: Hemoglobin 11.6 g/dL (12.0-16.0); Platelet Count 167 thou/uL (130-400)
[2018-06-03] MEDS: Furosemide 40 MG TAB PO SCH (08:18)
[2018-06-03] MEDS: Metoprolol Tartrate 25 MG TAB PO SCH ×2 (08:18→21:27)
[2018-06-03] MEDS: Fluticasone Propionate Nasal Spray 16 gm Bottle NASAL SCH (08:18)
[2018-06-03] MEDS: Amlodipine 5 MG TAB PO SCH (08:19)
[2018-06-03] MEDS: Lisinopril 20 MG TAB PO SCH (08:20)
[2018-06-03] MEDS: predniSONE 20 MG TAB PO SCH (08:20)
[2018-06-03] MEDS: Doxycycline 100 MG CAP PO SCH ×2 (08:20→21:27)
[2018-06-03] MEDS: cloNIDine 0.1 MG TAB PO SCH ×2 (08:21→21:28)
[2018-06-03] MEDS: Potassium Chloride 20 MEQ TAB PO SCH (08:21)
[2018-06-03] MEDS: Aspirin 81 mg Enteric Coated Tablet PO SCH (08:21)
[2018-06-03] MEDS: Magnesium Oxide 400 MG TAB PO SCH ×2 (08:21→17:02)
[2018-06-03] MEDS: Dronedarone HCl 400 MG TAB PO SCH ×2 (08:21→17:04)
[2018-06-03] MEDS: PARoxetine 20 MG TAB PO SCH (08:27)
[2018-06-03] MEDS ORDERED: Ketorolac Tromethamine 30 MG/ML VIAL ONE (08:33)
[2018-06-03] MEDS: Ketorolac Tromethamine 30 MG/ML VIAL IVP PRN (08:35)
[2018-06-03] MEDS: guaiFENesin ER 600 MG TAB PO PRN (08:44)
[2018-06-03] MEDS: Lorazepam 0.5 MG TAB PO PRN ×2 (08:44→21:27)
[2018-06-03] MEDS: cefTRIAXone\\ROCEPHIN 1 GM in Sodium Chloride 0.9% 100 ML IVPB SCH (11:45)
[2018-06-03] MEDS: Furosemide 20 MG TAB PO SCH (11:46)
[2018-06-03] MEDS: HYDROcodone/Acetaminophen 5/325 mg Tablet PO PRN ×2 (11:52→18:41)
[2018-06-03] MEDS: HumaLOG 300 UNITS/3 ML VIAL SC PRN ×2 (12:04→17:12)
[2018-06-03] MEDS: Enoxaparin Sodium 30 MG/0.3 ML SYRINGE SC SCH (21:27)
[2018-06-03] MEDS: Atorvastatin Calcium 10 MG TAB PO SCH (21:28)
[2018-06-03] MEDS: metFORMIN XR 500 MG TAB PO SCH (21:28)
[2018-06-03] MEDS: Famotidine 20 MG TAB PO SCH (21:28)
[2018-06-03] MEDS: Oxymetazoline HCl 0.05% ( 15 ML ) NASAL SCH (23:27)
[2018-06-04] MEDS ORDERED: Oxymetazoline HCl 0.05% ( 15 ML ) ONE (07:49)
[2018-06-04] MEDS: HYDROcodone/Acetaminophen 5/325 mg Tablet PO PRN ×2 (08:24→17:15)
[2018-06-04] MEDS: Dronedarone HCl 400 MG TAB PO SCH ×2 (08:24→17:12)
[2018-06-04] MEDS: Metoprolol Tartrate 25 MG TAB PO SCH ×2 (08:24→20:47)
[2018-06-04] MEDS: Lisinopril 20 MG TAB PO SCH (08:25)
[2018-06-04] MEDS: Potassium Chloride 20 MEQ TAB PO SCH (08:26)
[2018-06-04] MEDS: Amlodipine 5 MG TAB PO SCH (08:26)
[2018-06-04] MEDS: Aspirin 81 mg Enteric Coated Tablet PO SCH (08:26)
[2018-06-04] MEDS: PARoxetine 20 MG TAB PO SCH (08:26)
[2018-06-04] MEDS: Doxycycline 100 MG CAP PO SCH ×2 (08:26→20:47)
[2018-06-04] MEDS: cloNIDine 0.1 MG TAB PO SCH ×2 (08:26→20:47)
[2018-06-04] MEDS: predniSONE 20 MG TAB PO SCH (08:26)
[2018-06-04] MEDS: Magnesium Oxide 400 MG TAB PO SCH ×2 (08:27→17:12)
[2018-06-04] MEDS: Furosemide 40 MG TAB PO SCH (08:28)
[2018-06-04] MEDS: Oxymetazoline HCl 0.05% ( 15 ML ) NASAL SCH ×2 (08:31→20:59)
[2018-06-04] MEDS: Fluticasone Propionate Nasal Spray 16 gm Bottle NASAL SCH (08:51)
[2018-06-04] MEDS: guaiFENesin ER 600 MG TAB PO PRN (09:02)
[2018-06-04] MEDS: Lorazepam 0.5 MG TAB PO PRN ×2 (09:02→23:08)
[2018-06-04] MEDS: HumaLOG 300 UNITS/3 ML VIAL SC PRN ×2 (12:09→17:17)
[2018-06-04] MEDS: Furosemide 20 MG TAB PO SCH (12:09)
[2018-06-04] MEDS: cefTRIAXone\\ROCEPHIN 1 GM in Sodium Chloride 0.9% 100 ML IVPB SCH (12:10)
[2018-06-04] MEDS: Enoxaparin Sodium 30 MG/0.3 ML SYRINGE SC SCH (20:46)
[2018-06-04] MEDS: Atorvastatin Calcium 10 MG TAB PO SCH (20:47)
[2018-06-04] MEDS: Famotidine 20 MG TAB PO SCH (20:47)
[2018-06-04] MEDS: metFORMIN XR 500 MG TAB PO SCH (20:47)
[2018-06-04] MEDS: Zolpidem Tartrate 5 MG TAB PO PRN (23:08)
[2018-06-05 05:58] LABS: Hemoglobin 12.4 g/dL (12.0-16.0); Platelet Count 186 thou/uL (130-400)
[2018-06-05] MEDS: Furosemide 40 MG TAB PO SCH (09:24)
[2018-06-05] MEDS: Dronedarone HCl 400 MG TAB PO SCH ×2 (09:24→18:22)
[2018-06-05] MEDS: predniSONE 20 MG TAB PO SCH (09:25)
[2018-06-05] MEDS: Magnesium Oxide 400 MG TAB PO SCH ×2 (09:25→18:23)
[2018-06-05] MEDS: Aspirin 81 mg Enteric Coated Tablet PO SCH (09:31)
[2018-06-05] MEDS: Amlodipine 5 MG TAB PO SCH (09:31)
[2018-06-05] MEDS: cloNIDine 0.1 MG TAB PO SCH ×2 (09:32→21:55)
[2018-06-05] MEDS: Doxycycline 100 MG CAP PO SCH ×2 (09:32→21:50)
[2018-06-05] MEDS: Fluticasone Propionate Nasal Spray 16 gm Bottle NASAL SCH (09:32)
[2018-06-05] MEDS: Lisinopril 20 MG TAB PO SCH (09:33)
[2018-06-05] MEDS: Metoprolol Tartrate 25 MG TAB PO SCH ×2 (09:33→21:50)
[2018-06-05] MEDS: Potassium Chloride 20 MEQ TAB PO SCH (09:34)
[2018-06-05] MEDS: PARoxetine 20 MG TAB PO SCH (09:34)
[2018-06-05] MEDS: Oxymetazoline HCl 0.05% ( 15 ML ) NASAL SCH ×2 (09:34→22:00)
[2018-06-05] MEDS: Lorazepam 0.5 MG TAB PO PRN ×2 (09:51→21:50)
[2018-06-05] MEDS: Guaifenesin DM 100-10/5 ML UDCUP PO PRN (09:52)
[2018-06-05] MEDS: cefTRIAXone\\ROCEPHIN 1 GM in Sodium Chloride 0.9% 100 ML IVPB SCH (11:40)
[2018-06-05] MEDS: Furosemide 20 MG TAB PO SCH (11:42)
[2018-06-05] MEDS ORDERED: Ketorolac Tromethamine 30 MG/ML VIAL ONE (13:19)
[2018-06-05] MEDS: Ketorolac Tromethamine 30 MG/ML VIAL IVP PRN (13:30)
--- NOTE | 2018-06-05 17:50 | RAD ---
CHEST 2 VIEWS: Date: 06/05/18 Comparison is made with the 05/29/18 study. There has been really minimal change in the appearance of the chest over the interval. There is still haziness and some volume loss in the right upper lobe that is virtually identical. No new infiltrate s were seen elsewhere. No large effusions were seen. Heart size normal. The right subclavian catheter remains in place. IMPRESSION: Little change since 05/29/18. POS: HOME
[2018-06-05] MEDS: HumaLOG 300 UNITS/3 ML VIAL SC PRN (18:32)
[2018-06-05] MEDS: Atorvastatin Calcium 10 MG TAB PO SCH (21:50)
[2018-06-05] MEDS: Famotidine 20 MG TAB PO SCH (21:50)
[2018-06-05] MEDS: Enoxaparin Sodium 30 MG/0.3 ML SYRINGE SC SCH (21:51)
[2018-06-05] MEDS: Zolpidem Tartrate 5 MG TAB PO PRN (21:51)
[2018-06-05] MEDS: metFORMIN XR 500 MG TAB PO SCH (21:51)
[2018-06-06] MEDS: Dronedarone HCl 400 MG TAB PO SCH ×2 (09:22→18:10)
[2018-06-06] MEDS: Magnesium Oxide 400 MG TAB PO SCH ×2 (09:22→18:10)
[2018-06-06] MEDS: Metoprolol Tartrate 25 MG TAB PO SCH ×2 (09:22→21:35)
[2018-06-06] MEDS: Furosemide 40 MG TAB PO SCH (09:22)
[2018-06-06] MEDS: Lisinopril 20 MG TAB PO SCH (09:23)
[2018-06-06] MEDS: Aspirin 81 mg Enteric Coated Tablet PO SCH (09:23)
[2018-06-06] MEDS: Potassium Chloride 20 MEQ TAB PO SCH (09:23)
[2018-06-06] MEDS: predniSONE 20 MG TAB PO SCH (09:23)
[2018-06-06] MEDS: cloNIDine 0.1 MG TAB PO SCH (09:25)
[2018-06-06] MEDS: Amlodipine 5 MG TAB PO SCH (09:25)
[2018-06-06] MEDS: PARoxetine 20 MG TAB PO SCH (09:25)
[2018-06-06] MEDS: Fluticasone Propionate Nasal Spray 16 gm Bottle NASAL SCH (09:26)
[2018-06-06] MEDS: Guaifenesin DM 100-10/5 ML UDCUP PO PRN (09:27)
[2018-06-06] MEDS: Oxymetazoline HCl 0.05% ( 15 ML ) NASAL SCH ×2 (09:35→21:36)
[2018-06-06] MEDS: HYDROcodone/Acetaminophen 5/325 mg Tablet PO PRN ×3 (10:29→23:49)
[2018-06-06] MEDS: Lorazepam 0.5 MG TAB PO PRN ×2 (11:00→22:12)
[2018-06-06] MEDS: Furosemide 20 MG TAB PO SCH (11:57)
[2018-06-06] MEDS: Sodium Chloride 0.9% 1,000 ML IV SCH ×2 (13:04→23:40)
[2018-06-06 13:21] LABS: #Eosinphils 0.1 thou/uL (0.0-0.7); #Lymphocytes 1.4 thou/uL (1.20-3.40); #Monocytes 0.7 thou/uL (0.11-0.59); #Neutrophils 11.6 thou/uL (1.40-6.50); %Basophils 0.3 % (0.0-1.0); %Eosinophils 0.9 % (0.0-10.0); %Monocytes 4.8 % (0.0-10.0); Hemoglobin 10.5 g/dL (12.0-16.0); INR-International Normal Ratio 1.2; Mean Corpuscular HGB CONC 31.9 g/dL (32.0-36.0); Mean Corpuscular Hemoglobin 28.9 pg (27.0-31.0); Mean Corpuscular Volume 90.7 fL (78.0-98.0); Mean Platelet Volume 6.6 fL (7.4-10.4); PTT 25.8 SEC (22.9-36.1); Platelet Count 204 thou/uL (130-400); Prothrombin Time 14.9 SEC (12.0-14.7); RBC Distribution Width 13.9 % (11.5-14.5); Red Blood Cell (RBC) Count 3.61 mill/uL (4.20-5.40); White Blood Cell (WBC) Count 13.8 thou/uL (4.8-10.8)
[2018-06-06 13:37] LABS: ALT (SGPT) 10 U/L (8-55); AST (SGOT) 11 U/L (5-34); Albumin 3.2 g/dL (3.4-4.8); Alkaline Phosphatase 30 U/L (40-150); Anion Gap 15 mmol/L (10-20); BUN (Urea Nitrogen) 40 mg/dL (9.8-20.1); Bilirubin, Total 0.5 mg/dL (0.2-1.2); Calc. Creatinine Clearance 42 mL/min (70-130); Calcium 9.2 mg/dL (7.8-10.44); Carbon Dioxide 29 mmol/L (23-31); Chloride 88 mmol/L (98-107); Estimated GFR-MDRD 42; Globulin 2.1 g/dL (2.4-3.5); Glucose 224 mg/dL (83-110); Potassium 4.2 mmol/L (3.5-5.1); Protein, Total 5.3 g/dL (6.0-8.3); Sodium 128 mmol/L (136-145)
[2018-06-06 14:36] LABS: Bilirubin Negative (Negative); Blood, Urine Negative (Negative); Clarity SLIGHTLY (Clear); Glucose, Urine (Dipstick) Negative (Negative); Leukocyte Negative (Negative); Nitrite Negative (Negative); Protein, Urine (Dipstick) Negative (Neg-Trace); Specific Gravity, Urine 1.012 (1.002-1.036); Urobilinogen 0.2 mg/dL (0.2-1.0); pH, Urine 5.5 (5.0-9.0)
[2018-06-06 14:38] LABS: RBC/HPF None Seen HPF (0-3); Squamous Epithelial None Seen HPF (0-3); Transitional Epithelial NONE SEEN HPF (0-3); WBC/HPF None Seen HPF (0-3)
[2018-06-06 14:39] LABS: Bacteria/HPF None Seen HPF (None Seen); Crystals/HPF None Seen HPF (Negative); Hyaline Casts/LPF NONE SEEN LPF (0-3 Hyaline); Other Casts/LPF None Seen LPF (0-3 Hyaline); Oval Fat Bodies/HPF None Seen HPF (None Seen); Renal Epithelial None Seen HPF (0-3); Sperm/HPF None Seen HPF (None Seen); Trichomonas/HPF None Seen HPF (None Seen); Urine Culture Reflex No No; Yeast-All Forms None Seen HPF (None Seen)
[2018-06-06] MEDS ORDERED: cloNIDine 0.1 MG TAB PO PRN ×2 (14:44→14:52)
--- NOTE | 2018-06-06 17:21 | PRG ---
DATE OF SERVICE: 06/06/2018 PRIMARY CARE PHYSICIAN: Dr. Abad. CANCELED DICTATION Job ID: [id number] MTDD
--- NOTE | 2018-06-06 17:34 | RAD ---
PORTABLE CHEST: 07/07/18 An AP portable film at 12:55 is compared with a 05/29 study. There has been minimal change in the interval. The haziness and volume loss in the right upper lobe i s approximately the same. No new infiltrates are seen elsewhere. The heart is normal in size. There a re no effusions or signs of vascular congestion. IMPRESSION: Chronic changes but no acute findings. POS: HOME
--- NOTE | 2018-06-06 17:34 | CT ---
CT ABDOMEN AND PELVIS WITHOUT CONTRAST: DATE: 06/06/2018. FINDINGS: Spiral CT of the abdomen and pelvis was done without oral or IV contrast. Comparison was made with a prior CT of the chest from 05/27/2018, 01/20/2018, and a CT PET scan of 10/03. The patient has known neoplastic disease of the chest. The lung bases show no large infiltrate or effusions. Some minimal atelectasis or scarring is sugges troy. There is a 1.6 cm spiculated mass in the lower left breast which is present on numerous prior s cans and has been commented on previously. It is no larger than before, and actually seems a bit sma ller. The primary finding on this study is a large multidensity mass in the left anterior abdominal wall th at has the appearance of a very large rectus sheath hematoma. It measures about 13 x 7 cm in cross-s ection and vertically extends over 20 cm, beginning about the level of the kidneys and extending down through the lower end of the rectus sheath. Knowing the patient does have neoplastic disease elsewh ere, one could not exclude there being neoplastic involvement as well, though the appearance is suffi ciently explained by nothing more than a large rectus hematoma. This displaces some bowel away from it. The liver, spleen, pancreas, adrenal glands, kidneys, and abdominal aorta showed no acute findings wi thin the limitations of a noncontrast study. There is an abundant amount of fecal material in the co shahriar all the way to the rectum, but no evidence for obstruction. Sutures are seen in the bowel from p rior surgery. No free air or free fluid was noted. CT of the pelvis showed no free fluid, inflammatory changes, or other acute findings. There was no s ign of diverticulitis. The hips and bony pelvis appeared in tact with no gross fracture or area of b roxana destruction. The vertebrae showed no acute changes. IMPRESSION: 1. Very large left rectus sheath hematoma extending from about the renal level down through the lowe r end of the rectus sheath on the left side. See discussion above. 2. A 1.6 cm spiculated left breast mass, not seen completely, but has been commented on in prior sca ns. It is no larger than before and actually may be slightly smaller. 3. Mild constipation. Findings discussed with Dr. Wilson at 1528 on 06/06/2018. CODE CR POS: HOME
--- NOTE | 2018-06-06 17:50 | PRG ---
DATE OF SERVICE: 06/06/2018 SUBJECTIVE: The patient complained of acute onset of left lower quadrant pain, she has a small bruise on the affected area with a palpable mass. The patient received her usual blood pressure medicationd this morning along with pain medicines. When nurse, Rosalva, checked her, the patient appeared clammy, pale, weak, and was about to pass out. Félix Gallo was called, BP was noted to be in the 70s. Dr. Adkins ED doctor came and evaluated the patient. Labs ordered showed elevated WBC of 13.8 , hemoglobin of 10, hematocrit of 32.8, platelet count of 204. EKG showed stable findings compared from previous. She was started on IV fluids normal saline 100 mL/hr, systolic blood pressure stabilized between 100 to 110's. When I evaluated the patient, I noticed that she has a significantly tender and palpable mass on the left lower quadrant, hence CT scan abdomen and pelvis was ordered. According to official reading of Dr. Jackson, she has a significant sized rectus sheath hematoma measuring about 20 x 13 x 7 cm along the level of the left kidney. Repeat vital signs at around 1600 showed blood pressure of 112/78, pulse of 84, respiratory rate of 16 at room air. She is still complaining of [id number] dull ache on the left lower quadrant. She is not coughing, she denies any chest pressure or shortness of breath. OBJECTIVE: VITAL SIGNS: Blood pressure 110/70, pulse of 84, respiratory rate of 16, O2 saturation 98% at room air. GENERAL: The patient is alert, oriented, not in respiratory distress. HEENT: Normocephalic, atraumatic. Pupils are equally reactive to light. Slightly pale palpebral conjunctivae. NECK: Supple. Negative for lymphadenopathy. CHEST AND LUNGS: Symmetrical expansion. Clear to auscultation. HEART: Regular rate and rhythm. Negative for murmur. ABDOMEN: Slightly distended on the left lower quadrant area with deep tenderness. Normoactive bowel sounds. Negative for rebound tenderness. EXTREMITIES: No clubbing, no cyanosis. PSYCH: Appropriate affect and demeanor. LABORATORY AND DIAGNOSTIC DATA: Labs and CT scan reviewed. ASSESSMENT: 1. Hypotension, multifactorial, secondary to multiple blood pressure medications , diuretics, poor fluid intake and rectus sheath hematoma 2. Rectus sheath hematoma. 3. Chronic cough secondary to history of lung cancer. 4. Chronic anemia. 5. Hyponatremia. 6. Chronic kidney disease, stage 3. 7. Diabetes mellitus, type 2. 8. History of congestive heart failure. 9. Hypertension. 10. Recent history of headaches. PLAN: 1. Discontinue all blood thinners, and NSAIDs. 2. Monitor CBC, electrolytes and renal function. 3. Maintain systolic blood pressure above 120, adjusted blood pressure medications and diuretics 4. May need to re-image her abdomen and pelvis if any worsening symptoms. Dr Causey was consulted about Ct scan findings and recommended symptomatic treatment without surgical intervention at this time. 5. Lab orders in a.m. 6. May discontinue Vera catheter in a.m. 7. Transition to Dr. Abad tomorrow evening. Job ID: [id number] [facility]
[2018-06-06] MEDS: traMADol HCl 50 MG TAB PO PRN (18:11)
[2018-06-06] MEDS: metFORMIN XR 500 MG TAB PO SCH (21:34)
[2018-06-06] MEDS: Famotidine 20 MG TAB PO SCH (21:35)
[2018-06-06] MEDS: Atorvastatin Calcium 10 MG TAB PO SCH (21:35)
[2018-06-06] MEDS: Nystatin Cream 15 GM TUBE TOP SCH (21:37)
[2018-06-06] MEDS ORDERED: HumaLOG 300 UNITS/3 ML VIAL SC PRN (22:00)
[2018-06-06] MEDS: Zolpidem Tartrate 5 MG TAB PO PRN (22:12)
[2018-06-07 05:30] LABS: #Lymphocytes 0.7 thou/uL (1.20-3.40); #Monocytes 0.4 thou/uL (0.11-0.59); #Neutrophils 10.9 thou/uL (1.40-6.50); %Basophils 0.3 % (0.0-1.0); %Eosinophils 0.1 % (0.0-10.0); %Lymphocytes 5.6 % (21.0-51.0); %Monocytes 3.2 % (0.0-10.0); Mean Corpuscular HGB CONC 32.2 g/dL (32.0-36.0); Mean Corpuscular Hemoglobin 28.6 pg (27.0-31.0); Mean Corpuscular Volume 88.9 fL (78.0-98.0); Mean Platelet Volume 6.7 fL (7.4-10.4); Platelet Count 147 thou/uL (130-400); RBC Distribution Width 14.1 % (11.5-14.5); Red Blood Cell (RBC) Count 2.81 mill/uL (4.20-5.40); White Blood Cell (WBC) Count 11.9 thou/uL (4.8-10.8)
[2018-06-07 05:53] LABS: Anion Gap 14 mmol/L (10-20); BUN (Urea Nitrogen) 41 mg/dL (9.8-20.1); Calc. Creatinine Clearance 42 mL/min (70-130); Calcium 8.4 mg/dL (7.8-10.44); Carbon Dioxide 27 mmol/L (23-31); Chloride 93 mmol/L (98-107); Estimated GFR-MDRD 42; Glucose 125 mg/dL (83-110); Potassium 4.7 mmol/L (3.5-5.1); Sodium 129 mmol/L (136-145)
[2018-06-07] MEDS ORDERED: traMADol HCl 50 MG TAB PO PRN (07:07)
[2018-06-07] MEDS ORDERED: Furosemide 40 MG TAB PO SCH (07:30)
[2018-06-07] MEDS: HYDROcodone/Acetaminophen 5/325 mg Tablet PO PRN ×2 (08:33→14:48)
[2018-06-07] MEDS: Potassium Chloride 20 MEQ TAB PO SCH (08:34)
[2018-06-07] MEDS: Aspirin 81 mg Enteric Coated Tablet PO SCH (08:34)
[2018-06-07] MEDS: Magnesium Oxide 400 MG TAB PO SCH ×2 (08:35→17:50)
[2018-06-07] MEDS: Dronedarone HCl 400 MG TAB PO SCH ×2 (08:35→17:51)
[2018-06-07] MEDS: predniSONE 20 MG TAB PO SCH (08:35)
[2018-06-07] MEDS: Nystatin Cream 15 GM TUBE TOP SCH ×2 (08:36→21:14)
[2018-06-07] MEDS: PARoxetine 20 MG TAB PO SCH (08:36)
[2018-06-07] MEDS: Fluticasone Propionate Nasal Spray 16 gm Bottle NASAL SCH (08:36)
[2018-06-07] MEDS: Metoprolol Tartrate 25 MG TAB PO SCH ×2 (08:37→21:13)
[2018-06-07] MEDS: Lisinopril 10 MG TAB PO SCH (08:37)
[2018-06-07] MEDS: Sodium Chloride 0.9% 1,000 ML IV SCH (12:20)
[2018-06-07] MEDS: Docusate 100 MG CAP PO PRN (14:49)
[2018-06-07] MEDS: HumaLOG 300 UNITS/3 ML VIAL SC PRN (17:52)
--- NOTE | 2018-06-07 18:18 | PRG ---
DATE OF SERVICE: 06/07/2018 SUBJECTIVE: The patient is slightly better. She has left lower quadrant pain only when she coughs. Otherwise, she is comfortable. She is not drinking a whole lot. According to her daughter, she is more alert today. The patient would like her Vera out. Her abdomen appears slightly distended, but soft. She still has tenderness on left lower quadrant. She has not had any bowel movement today, she informed me that she has a regular bowel movement every day. She is still complaining of bcaz-xd-uiudsbor frontal headaches. She still has a dry nagging cough. OBJECTIVE: VITAL SIGNS: Blood pressure of 110/62, pulse of 68, RR of 18, and O2 saturation 94% at 1 L of oxygen. GENERAL: The patient is alert, oriented, not in respiratory distress. HEENT: Normocephalic and atraumatic. Pupils are equal and reactive to light. Slightly pale palpebral conjunctivae. NECK: Supple. Negative for lymphadenopathy. CHEST AND LUNGS: Symmetrical expansion. Clear to auscultation. HEART: Regular rate and rhythm. Negative for murmur. ABDOMEN: Slightly distended, positive for tenderness on left lower quadrant, normoactive bowel sounds. Negative for rebound tenderness. EXTREMITIES: No clubbing. No cyanosis. No edema. Negative for Homans sign. PSYCH: Appropriate affect and demeanor. LABORATORY DATA: CBC; white count of 11.9, hemoglobin of 8, hematocrit of 24.9, neutrophils of 91, lymphocytes of 5.6, and platelet count of 147. BMP; sodium of 129, potassium of 4.7, chloride of 93, BUN of 41, creatinine of 1.25, and glucose of 125. ASSESSMENT: 1. Left lower quadrant pain secondary to rectus sheath hematoma. 2. Lxkqs-pb-avpuuvp anemia secondary to hemodilution. 3. Recent history of hypotension, improving. 4. High-risk for deep venous thrombosis, off anticoagulation secondary to #1. 5. Symptomatic chronic hyponatremia. 6. Constipation. PLAN: 1. Discontinue IV fluids, encourage the patient to increase fluid intake. 2. Start compression stockings/SAUD hose. 3. P.r.n. stool softener. 4. Daughter refused iron supplement at this time due to history of constipation. 5. Closely monitor vital signs. 6. Labs ordered in am . 7. Recommend for the patient to have outpatient followup with Surgery, the patient is established with both Dr. Gonzalez and Dr. Causey. Dr. Causey is aware of her case. 8. Transition of care to Dr. Abad in a.m. Job ID: [id number] MTDD
[2018-06-07] MEDS: metFORMIN XR 500 MG TAB PO SCH (21:13)
[2018-06-07] MEDS: Atorvastatin Calcium 10 MG TAB PO SCH (21:14)
[2018-06-07] MEDS: Lorazepam 0.5 MG TAB PO PRN (21:14)
[2018-06-07] MEDS: Zolpidem Tartrate 5 MG TAB PO PRN (21:14)
[2018-06-07] MEDS: Famotidine 20 MG TAB PO SCH (21:14)
[2018-06-08] MEDS: HYDROcodone/Acetaminophen 5/325 mg Tablet PO PRN ×2 (04:39→12:19)
[2018-06-08 05:24] LABS: #Lymphocytes 0.9 thou/uL (1.20-3.40); #Monocytes 0.7 thou/uL (0.11-0.59); #Neutrophils 12.7 thou/uL (1.40-6.50); %Basophils 0.3 % (0.0-1.0); %Eosinophils 0.2 % (0.0-10.0); %Lymphocytes 6.1 % (21.0-51.0); %Monocytes 4.9 % (0.0-10.0); %Neutrophils 88.5 % (42.0-75.0); Mean Corpuscular Hemoglobin 29.7 pg (27.0-31.0); Mean Corpuscular Volume 90.1 fL (78.0-98.0); Mean Platelet Volume 7.1 fL (7.4-10.4); Platelet Count 156 thou/uL (130-400); RBC Distribution Width 14.1 % (11.5-14.5); Red Blood Cell (RBC) Count 2.69 mill/uL (4.20-5.40); White Blood Cell (WBC) Count 14.3 thou/uL (4.8-10.8)
[2018-06-08 05:28] LABS: Anion Gap 16 mmol/L (10-20); BUN (Urea Nitrogen) 31 mg/dL (9.8-20.1); Calc. Creatinine Clearance 42 mL/min (70-130); Carbon Dioxide 24 mmol/L (23-31); Chloride 93 mmol/L (98-107); Estimated GFR-MDRD 42; Glucose 126 mg/dL (83-110); Potassium 4.5 mmol/L (3.5-5.1); Sodium 128 mmol/L (136-145)
[2018-06-08] MEDS: traMADol HCl 50 MG TAB PO PRN (08:55)
[2018-06-08] MEDS: Magnesium Oxide 400 MG TAB PO SCH ×2 (08:57→17:21)
[2018-06-08] MEDS: Potassium Chloride 20 MEQ TAB PO SCH (08:57)
[2018-06-08] MEDS: Docusate 100 MG CAP PO PRN (08:58)
[2018-06-08] MEDS: Lisinopril 10 MG TAB PO SCH (08:58)
[2018-06-08] MEDS: Fluticasone Propionate Nasal Spray 16 gm Bottle NASAL SCH (09:01)
[2018-06-08] MEDS: predniSONE 20 MG TAB PO SCH (09:01)
[2018-06-08] MEDS: Aspirin 81 mg Enteric Coated Tablet PO SCH (09:01)
[2018-06-08] MEDS: Dronedarone HCl 400 MG TAB PO SCH ×2 (09:01→17:22)
[2018-06-08] MEDS: PARoxetine 20 MG TAB PO SCH (09:01)
[2018-06-08] MEDS: Metoprolol Tartrate 25 MG TAB PO SCH ×2 (09:01→22:03)
[2018-06-08] MEDS: Furosemide 20 MG TAB PO SCH (09:02)
[2018-06-08] MEDS: Nystatin Cream 15 GM TUBE TOP SCH ×2 (09:02→22:04)
[2018-06-08] MEDS: HumaLOG 300 UNITS/3 ML VIAL SC PRN ×2 (18:12→22:58)
[2018-06-08] MEDS: Famotidine 20 MG TAB PO SCH (22:02)
[2018-06-08] MEDS: Zolpidem Tartrate 5 MG TAB PO PRN (22:02)
[2018-06-08] MEDS: Atorvastatin Calcium 10 MG TAB PO SCH (22:02)
[2018-06-08] MEDS: metFORMIN XR 500 MG TAB PO SCH (22:03)
[2018-06-08] MEDS: Lorazepam 0.5 MG TAB PO PRN (22:03)
[2018-06-09 05:23] LABS: Hemoglobin 7.4 g/dL (12.0-16.0); Platelet Count 131 thou/uL (130-400)
[2018-06-09] MEDS: Fluticasone Propionate Nasal Spray 16 gm Bottle NASAL SCH (09:18)
[2018-06-09] MEDS: predniSONE 20 MG TAB PO SCH (09:19)
[2018-06-09] MEDS: Dronedarone HCl 400 MG TAB PO SCH ×2 (09:19→17:05)
[2018-06-09] MEDS: Aspirin 81 mg Enteric Coated Tablet PO SCH (09:19)
[2018-06-09] MEDS: Metoprolol Tartrate 25 MG TAB PO SCH ×2 (09:19→21:55)
[2018-06-09] MEDS: PARoxetine 20 MG TAB PO SCH (09:19)
[2018-06-09] MEDS: Lisinopril 10 MG TAB PO SCH (09:20)
[2018-06-09] MEDS: Magnesium Oxide 400 MG TAB PO SCH ×2 (09:20→17:05)
[2018-06-09] MEDS: Potassium Chloride 20 MEQ TAB PO SCH (09:20)
[2018-06-09] MEDS: Furosemide 20 MG TAB PO SCH (09:20)
[2018-06-09] MEDS: Nystatin Cream 15 GM TUBE TOP SCH ×2 (09:22→21:57)
[2018-06-09] MEDS: Guaifenesin DM 100-10/5 ML UDCUP PO SCH ×2 (13:26→18:30)
[2018-06-09] MEDS: HYDROcodone/Acetaminophen 5/325 mg Tablet PO PRN (14:28)
[2018-06-09] MEDS: HumaLOG 300 UNITS/3 ML VIAL SC PRN ×2 (17:04→22:03)
[2018-06-09] MEDS: Ferrous Sulfate 325 MG TAB PO SCH (17:05)
[2018-06-09] MEDS: Atorvastatin Calcium 10 MG TAB PO SCH (21:54)
[2018-06-09] MEDS: Famotidine 20 MG TAB PO SCH (21:55)
[2018-06-09] MEDS: Zolpidem Tartrate 5 MG TAB PO PRN (21:55)
[2018-06-09] MEDS: Lorazepam 0.5 MG TAB PO PRN (21:55)
[2018-06-09] MEDS: metFORMIN XR 500 MG TAB PO SCH (21:55)
[2018-06-10] MEDS: Guaifenesin DM 100-10/5 ML UDCUP PO SCH ×4 (00:24→18:44)
[2018-06-10 06:40] LABS: #Lymphocytes 0.6 thou/uL (1.20-3.40); #Monocytes 0.5 thou/uL (0.11-0.59); #Neutrophils 5.6 thou/uL (1.40-6.50); %Basophils 0.6 % (0.0-1.0); %Eosinophils 0.4 % (0.0-10.0); %Lymphocytes 9.2 % (21.0-51.0); %Monocytes 7.2 % (0.0-10.0); %Neutrophils 82.6 % (42.0-75.0); Hemoglobin 6.9 g/dL (12.0-16.0); Mean Corpuscular HGB CONC 32.9 g/dL (32.0-36.0); Mean Corpuscular Hemoglobin 29.8 pg (27.0-31.0); Mean Corpuscular Volume 90.5 fL (78.0-98.0); Mean Platelet Volume 6.6 fL (7.4-10.4); Platelet Count 148 thou/uL (130-400); RBC Distribution Width 13.9 % (11.5-14.5); Red Blood Cell (RBC) Count 2.31 mill/uL (4.20-5.40); White Blood Cell (WBC) Count 6.8 thou/uL (4.8-10.8)
[2018-06-10] MEDS: Magnesium Oxide 400 MG TAB PO SCH ×2 (09:54→17:29)
[2018-06-10] MEDS: PARoxetine 20 MG TAB PO SCH (09:54)
[2018-06-10] MEDS: predniSONE 20 MG TAB PO SCH (09:54)
[2018-06-10] MEDS: Furosemide 20 MG TAB PO SCH (09:54)
[2018-06-10] MEDS: Lisinopril 10 MG TAB PO SCH (09:55)
[2018-06-10] MEDS: Dronedarone HCl 400 MG TAB PO SCH ×2 (09:55→17:29)
[2018-06-10] MEDS: Metoprolol Tartrate 25 MG TAB PO SCH ×2 (09:55→21:46)
[2018-06-10] MEDS: Potassium Chloride 20 MEQ TAB PO SCH (09:55)
[2018-06-10] MEDS: Ferrous Sulfate 325 MG TAB PO SCH ×2 (09:56→17:29)
[2018-06-10] MEDS: Fluticasone Propionate Nasal Spray 16 gm Bottle NASAL SCH (10:01)
[2018-06-10] MEDS: Nystatin Cream 15 GM TUBE TOP SCH ×2 (10:09→23:18)
[2018-06-10] MEDS ORDERED: Sodium Chloride 0.9% 10 ML ONE (11:04)
--- NOTE | 2018-06-10 12:56 | CT ---
CT ABDOMEN AND PELVIS WITHOUT CONTRAST: DATE: 06/10/2018. FINDINGS: Comparison is made with the prior study of 06/06. The left lower rectus abdominus hematoma has markedly decreased in size in the interim. It is at myles st half the size that it was originally. Its cross-section size is now about 12 x 5 cm. Here defini te has been significant resolution is some areas, though it is still quite thick and obviously has dowling d hemorrhage in it. The remainder of the scan shows no new findings. A nodular area is seen in the lower outer left ector st as before. The liver, spleen, pancreas, adrenal glands, kidneys, and abdominal aorta no acute fin dings. There is an abundance of fecal material in the colon but no sign of obstruction. No inflamma tory change was seen around the colon. There is no free air or free fluid present. CT of the pelvis shows no pelvic masses, fluid collections, or inflammatory changes. IMPRESSION: 1. Substantial reduction in size of the left rectus sheath hematoma, though it is still quite large. The size has been reduced by about one half in the interval. 2. Constipation. POS: [facility]
[2018-06-10] MEDS: Lorazepam 0.5 MG TAB PO PRN ×2 (16:17→21:46)
[2018-06-10] MEDS: HumaLOG 300 UNITS/3 ML VIAL SC PRN (17:31)
[2018-06-10] MEDS: HYDROcodone/Acetaminophen 5/325 mg Tablet PO PRN (17:58)
[2018-06-10] MEDS: Atorvastatin Calcium 10 MG TAB PO SCH (21:45)
[2018-06-10] MEDS: Zolpidem Tartrate 5 MG TAB PO PRN (21:46)
[2018-06-10] MEDS: metFORMIN XR 500 MG TAB PO SCH (21:46)
[2018-06-10] MEDS: Famotidine 20 MG TAB PO SCH (21:46)
[2018-06-11] MEDS: Guaifenesin DM 100-10/5 ML UDCUP PO SCH ×4 (00:02→18:49)
[2018-06-11 04:28] LABS: ALT (SGPT) 16 U/L (8-55); AST (SGOT) 14 U/L (5-34); Albumin 3.2 g/dL (3.4-4.8); Alkaline Phosphatase 35 U/L (40-150); Anion Gap 15 mmol/L (10-20); BUN (Urea Nitrogen) 19 mg/dL (9.8-20.1); Bilirubin, Total 0.7 mg/dL (0.2-1.2); Calc. Creatinine Clearance 48 mL/min (70-130); Calcium 8.1 mg/dL (7.8-10.44); Carbon Dioxide 29 mmol/L (23-31); Chloride 92 mmol/L (98-107); Estimated GFR-MDRD 49; Globulin 2.3 g/dL (2.4-3.5); Glucose 101 mg/dL (83-110); Potassium 5.5 mmol/L (3.5-5.1); Protein, Total 5.5 g/dL (6.0-8.3); Sodium 130 mmol/L (136-145)
[2018-06-11 04:46] LABS: Eosinophils 1 % (0-10); Hemoglobin 9.7 g/dL (12.0-16.0); Hypochromia SLIGHT = 6-15 cells (100X) (0-5/hpf); Lymphocytes 9 % (21-51); MDiff Complete? YES; Mean Corpuscular HGB CONC 33.8 g/dL (32.0-36.0); Mean Corpuscular Hemoglobin 30.2 pg (27.0-31.0); Mean Corpuscular Volume 89.1 fL (78.0-98.0); Mean Platelet Volume 5.7 fL (7.4-10.4); Monocytes 5 % (0-10); Neutrophil 85 % (42-75); Ovalocytes SLIGHT = 2-5 cells (100X) (0-1/hpf); Platelet Count 139 thou/uL (130-400); Platelet Morphology Comment Appears Adequate; RBC Distribution Width 13.7 % (11.5-14.5); Red Blood Cell (RBC) Count 3.22 mill/uL (4.20-5.40); Small Platelets SLIGHT; White Blood Cell (WBC) Count 6.8 thou/uL (4.8-10.8)
[2018-06-11] MEDS: HYDROcodone/Acetaminophen 5/325 mg Tablet PO PRN ×2 (09:39→21:04)
[2018-06-11] MEDS: Lorazepam 0.5 MG TAB PO PRN ×2 (09:40→21:04)
[2018-06-11] MEDS: guaiFENesin ER 600 MG TAB PO PRN (09:40)
[2018-06-11] MEDS: Metoprolol Tartrate 25 MG TAB PO SCH ×2 (09:43→21:03)
[2018-06-11] MEDS: Furosemide 20 MG TAB PO SCH (09:43)
[2018-06-11] MEDS: Magnesium Oxide 400 MG TAB PO SCH ×2 (09:43→17:41)
[2018-06-11] MEDS: PARoxetine 20 MG TAB PO SCH (09:44)
[2018-06-11] MEDS: Potassium Chloride 20 MEQ TAB PO SCH (09:44)
[2018-06-11] MEDS: Dronedarone HCl 400 MG TAB PO SCH ×2 (09:44→17:41)
[2018-06-11] MEDS: predniSONE 20 MG TAB PO SCH (09:44)
[2018-06-11] MEDS: Ferrous Sulfate 325 MG TAB PO SCH ×2 (09:45→17:40)
[2018-06-11] MEDS: Lisinopril 10 MG TAB PO SCH (09:46)
[2018-06-11] MEDS: Fluticasone Propionate Nasal Spray 16 gm Bottle NASAL SCH (09:48)
[2018-06-11] MEDS: Polyethylene Glycol 3350 17 GM Packet PO SCH (09:49)
[2018-06-11] MEDS: Nystatin Cream 15 GM TUBE TOP SCH ×2 (16:02→21:09)
[2018-06-11] MEDS: HumaLOG 300 UNITS/3 ML VIAL SC PRN (17:48)
[2018-06-11] MEDS: Atorvastatin Calcium 10 MG TAB PO SCH (21:03)
[2018-06-11] MEDS: Benzonatate 100 MG CAP PO SCH (21:03)
[2018-06-11] MEDS: Famotidine 20 MG TAB PO SCH (21:04)
[2018-06-11] MEDS: Zolpidem Tartrate 5 MG TAB PO PRN (21:04)
[2018-06-11] MEDS: metFORMIN XR 500 MG TAB PO SCH (21:05)
[2018-06-12 05:24] LABS: #Eosinphils 0.1 thou/uL (0.0-0.7); #Lymphocytes 0.7 thou/uL (1.20-3.40); #Monocytes 0.5 thou/uL (0.11-0.59); #Neutrophils 5.8 thou/uL (1.40-6.50); %Basophils 0.4 % (0.0-1.0); %Eosinophils 1.3 % (0.0-10.0); %Lymphocytes 9.6 % (21.0-51.0); %Monocytes 7.3 % (0.0-10.0); %Neutrophils 81.5 % (42.0-75.0); Hemoglobin 10.5 g/dL (12.0-16.0); Mean Corpuscular HGB CONC 32.2 g/dL (32.0-36.0); Mean Platelet Volume 5.6 fL (7.4-10.4); Platelet Count 153 thou/uL (130-400); RBC Distribution Width 13.7 % (11.5-14.5); Red Blood Cell (RBC) Count 3.63 mill/uL (4.20-5.40); White Blood Cell (WBC) Count 7.1 thou/uL (4.8-10.8)
[2018-06-12 05:32] LABS: Anion Gap 16 mmol/L (10-20); BUN (Urea Nitrogen) 18 mg/dL (9.8-20.1); Calc. Creatinine Clearance 48 mL/min (70-130); Calcium 9.1 mg/dL (7.8-10.44); Carbon Dioxide 25 mmol/L (23-31); Chloride 93 mmol/L (98-107); Estimated GFR-MDRD 49; Glucose 95 mg/dL (83-110); Potassium 4.7 mmol/L (3.5-5.1); Sodium 129 mmol/L (136-145)
[2018-06-12] MEDS: Guaifenesin DM 100-10/5 ML UDCUP PO SCH ×4 (05:56→18:32)
[2018-06-12] MEDS: Furosemide 20 MG TAB PO SCH (08:59)
[2018-06-12] MEDS: Magnesium Oxide 400 MG TAB PO SCH ×2 (08:59→17:14)
[2018-06-12] MEDS: Benzonatate 100 MG CAP PO SCH ×3 (09:00→21:12)
[2018-06-12] MEDS: Metoprolol Tartrate 25 MG TAB PO SCH ×2 (09:00→21:11)
[2018-06-12] MEDS: PARoxetine 20 MG TAB PO SCH (09:00)
[2018-06-12] MEDS: Dronedarone HCl 400 MG TAB PO SCH ×2 (09:00→17:13)
[2018-06-12] MEDS: Lisinopril 10 MG TAB PO SCH (09:01)
[2018-06-12] MEDS: Ferrous Sulfate 325 MG TAB PO SCH ×2 (09:01→17:13)
[2018-06-12] MEDS: predniSONE 20 MG TAB PO SCH (09:02)
[2018-06-12] MEDS: Fluticasone Propionate Nasal Spray 16 gm Bottle NASAL SCH (09:02)
[2018-06-12] MEDS: Polyethylene Glycol 3350 17 GM Packet PO SCH (09:15)
[2018-06-12] MEDS: Nystatin Cream 15 GM TUBE TOP SCH ×2 (09:19→21:13)
[2018-06-12] MEDS: HumaLOG 300 UNITS/3 ML VIAL SC PRN (17:45)
[2018-06-12] MEDS: metFORMIN XR 500 MG TAB PO SCH (21:11)
[2018-06-12] MEDS: Zolpidem Tartrate 5 MG TAB PO PRN (21:12)
[2018-06-12] MEDS: Famotidine 20 MG TAB PO SCH (21:12)
[2018-06-12] MEDS: Lorazepam 0.5 MG TAB PO PRN (21:12)
[2018-06-12] MEDS: Atorvastatin Calcium 10 MG TAB PO SCH (21:12)
[2018-06-13] MEDS: Guaifenesin DM 100-10/5 ML UDCUP PO SCH ×4 (00:24→20:44)
[2018-06-13 05:33] LABS: Hemoglobin 10.2 g/dL (12.0-16.0); Platelet Count 164 thou/uL (130-400)
[2018-06-13] MEDS: HYDROcodone/Acetaminophen 5/325 mg Tablet PO PRN (09:39)
[2018-06-13] MEDS: Lisinopril 10 MG TAB PO SCH (09:41)
[2018-06-13] MEDS: Lorazepam 0.5 MG TAB PO PRN ×2 (09:41→20:43)
[2018-06-13] MEDS: Metoprolol Tartrate 25 MG TAB PO SCH ×2 (09:44→20:43)
[2018-06-13] MEDS: predniSONE 20 MG TAB PO SCH (09:45)
[2018-06-13] MEDS: Benzonatate 100 MG CAP PO SCH ×3 (09:45→20:43)
[2018-06-13] MEDS: Magnesium Oxide 400 MG TAB PO SCH ×2 (09:45→20:42)
[2018-06-13] MEDS: Furosemide 20 MG TAB PO SCH (09:45)
[2018-06-13] MEDS: PARoxetine 20 MG TAB PO SCH (09:45)
[2018-06-13] MEDS: Dronedarone HCl 400 MG TAB PO SCH ×2 (09:45→20:44)
[2018-06-13] MEDS: Ferrous Sulfate 325 MG TAB PO SCH ×2 (09:45→20:43)
[2018-06-13] MEDS: Fluticasone Propionate Nasal Spray 16 gm Bottle NASAL SCH (09:47)
[2018-06-13] MEDS: Nystatin Cream 15 GM TUBE TOP SCH ×2 (09:50→20:44)
[2018-06-13] MEDS: Polyethylene Glycol 3350 17 GM Packet PO SCH (09:52)
[2018-06-13] MEDS: HumaLOG 300 UNITS/3 ML VIAL SC PRN (20:42)
[2018-06-13] MEDS: Famotidine 20 MG TAB PO SCH (20:43)
[2018-06-13] MEDS: metFORMIN XR 500 MG TAB PO SCH (20:43)
[2018-06-13] MEDS: Zolpidem Tartrate 5 MG TAB PO PRN (20:44)
[2018-06-13] MEDS: Atorvastatin Calcium 10 MG TAB PO SCH (20:44)
[2018-06-14] MEDS: Guaifenesin DM 100-10/5 ML UDCUP PO SCH ×4 (00:48→18:51)
[2018-06-14] MEDS: HYDROcodone/Acetaminophen 5/325 mg Tablet PO PRN (08:18)
[2018-06-14] MEDS: Lisinopril 10 MG TAB PO SCH (08:19)
[2018-06-14] MEDS: Ferrous Sulfate 325 MG TAB PO SCH ×2 (08:20→17:07)
[2018-06-14] MEDS: Fluticasone Propionate Nasal Spray 16 gm Bottle NASAL SCH (08:20)
[2018-06-14] MEDS: Magnesium Oxide 400 MG TAB PO SCH ×2 (08:20→17:06)
[2018-06-14] MEDS: Benzonatate 100 MG CAP PO SCH ×3 (08:21→17:08)
[2018-06-14] MEDS: Metoprolol Tartrate 25 MG TAB PO SCH ×2 (08:21→20:38)
[2018-06-14] MEDS: predniSONE 20 MG TAB PO SCH (08:21)
[2018-06-14] MEDS: PARoxetine 20 MG TAB PO SCH (08:21)
[2018-06-14] MEDS: Dronedarone HCl 400 MG TAB PO SCH ×2 (08:21→17:07)
[2018-06-14] MEDS: Polyethylene Glycol 3350 17 GM Packet PO SCH (08:22)
[2018-06-14] MEDS: Furosemide 20 MG TAB PO SCH (08:26)
[2018-06-14] MEDS: Nystatin Cream 15 GM TUBE TOP SCH ×2 (08:28→20:40)
[2018-06-14] MEDS: HumaLOG 300 UNITS/3 ML VIAL SC PRN ×2 (17:12→20:52)
[2018-06-14] MEDS: Atorvastatin Calcium 10 MG TAB PO SCH (20:37)
[2018-06-14] MEDS: Zolpidem Tartrate 5 MG TAB PO PRN (20:38)
[2018-06-14] MEDS: Lorazepam 0.5 MG TAB PO PRN (20:38)
[2018-06-14] MEDS: metFORMIN XR 500 MG TAB PO SCH (20:38)
[2018-06-14] MEDS: Famotidine 20 MG TAB PO SCH (20:38)
[2018-06-15] MEDS: Guaifenesin DM 100-10/5 ML UDCUP PO SCH ×3 (01:08→11:58)
[2018-06-15 05:26] LABS: Hemoglobin 9.9 g/dL (12.0-16.0); Platelet Count 173 thou/uL (130-400)
[2018-06-15 05:56] VITALS: TEMP 98.1
[2018-06-15] MEDS ORDERED: HYDROcodone/Acetaminophen 5/325 mg Tablet ONE (09:05)
[2018-06-15] MEDS: HYDROcodone/Acetaminophen 5/325 mg Tablet PO PRN (09:10)
[2018-06-15] MEDS: Lisinopril 10 MG TAB PO SCH (09:10)
[2018-06-15] MEDS: Furosemide 20 MG TAB PO SCH (09:12)
[2018-06-15] MEDS: Magnesium Oxide 400 MG TAB PO SCH (09:12)
[2018-06-15] MEDS: predniSONE 20 MG TAB PO SCH (09:12)
[2018-06-15] MEDS: Benzonatate 100 MG CAP PO SCH (09:13)
[2018-06-15] MEDS: Ferrous Sulfate 325 MG TAB PO SCH (09:13)
[2018-06-15] MEDS: Metoprolol Tartrate 25 MG TAB PO SCH (09:13)
[2018-06-15] MEDS: Polyethylene Glycol 3350 17 GM Packet PO SCH ×2 (09:13→09:18)
[2018-06-15] MEDS: PARoxetine 20 MG TAB PO SCH (09:13)
[2018-06-15] MEDS: Dronedarone HCl 400 MG TAB PO SCH (09:13)
[2018-06-15] MEDS: Fluticasone Propionate Nasal Spray 16 gm Bottle NASAL SCH (09:14)
[2018-06-15] MEDS: Nystatin Cream 15 GM TUBE TOP SCH (09:15)
[2018-06-15 09:16] VITALS: BP 168/72
== END 2018-06-15 12:53 | disposition home or self-care (01) | DRG 194 ==
LOC: BURMED 17:05
PROVIDERS: ADMIT Family Medicine; ATTEND Family Medicine
PROC: 30233N1 Transfusion of Nonautologous Red Blood Cells into Peripheral Vein, Percutaneous Approach (ICD-10-PCS; principal; 2018-06-10)
DX: J18.9 Pneumonia, unspecified organism (principal); D62 Acute posthemorrhagic anemia; E87.1 Hypo-osmolality and hyponatremia; I13.0 Hypertensive heart and chronic kidney disease with heart failure and stage 1 through stage 4 chronic kidney disease, or unspecified chronic kidney disease; C34.91 Malignant neoplasm of unspecified part of right bronchus or lung; S30.1XXA Contusion of abdominal wall, initial encounter; R53.1 Weakness; R09.02 Hypoxemia; I95.89 Other hypotension; I48.0 Paroxysmal atrial fibrillation; E11.22 Type 2 diabetes mellitus with diabetic chronic kidney disease; N18.3 Chronic kidney disease, stage 3 (moderate); K59.00 Constipation, unspecified; I50.9 Heart failure, unspecified; Z88.0 Allergy status to penicillin; Z88.2 Allergy status to sulfonamides; Z91.041 Radiographic dye allergy status; Z79.84 Long term (current) use of oral hypoglycemic drugs; Z79.52 Long term (current) use of systemic steroids
CPT/HCPCS: 36415; 36416; 36430; 70450; 71045; 71046; 74176; 80048; 80053; 81001; 82274; 82565; 85014; 85018; 85025; 85049; 85610; 85730; 86850; 86900; 86901; 86922; 94640; J0696; J1642; J1650; J1885; J2930; J7050; J7620; P9016

== ENCOUNTER 2018-12-08 13:45 | Inpatient (IN) | payer MEDICARE, OTHER ==
[2018-12-08] MEDS ORDERED: Piperacillin/Tazobactam 4.5 GM VIAL ONE (14:30)
[2018-12-08] MEDS ORDERED: Sodium Chloride 0.9% 100 ML ONE (14:31)
[2018-12-08 14:43] LABS: ALT (SGPT) 10 U/L (8-55); AST (SGOT) 10 U/L (5-34); Albumin 4.2 g/dL (3.4-4.8); Alkaline Phosphatase 52 U/L (40-150); Anion Gap 15 mmol/L (10-20); BUN (Urea Nitrogen) 21 mg/dL (9.8-20.1); Bilirubin, Total 0.5 mg/dL (0.2-1.2); Calc. Creatinine Clearance 0 mL/min (70-130); Calcium 9.3 mg/dL (7.8-10.44); Carbon Dioxide 29 mmol/L (23-31); Chloride 94 mmol/L (98-107); Estimated GFR-MDRD 57; Glucose 115 mg/dL (83-110); Potassium 3.5 mmol/L (3.5-5.1); Protein, Total 7.2 g/dL (6.0-8.3); Sodium 134 mmol/L (136-145)
[2018-12-08 14:46] LABS: Eosinophils 1 % (0-10); Lymphocytes 6 % (21-51); MDiff Complete? YES; Mean Corpuscular HGB CONC 31.4 g/dL (32.0-36.0); Mean Corpuscular Hemoglobin 27.7 pg (27.0-31.0); Mean Corpuscular Volume 88.2 fL (78.0-98.0); Mean Platelet Volume 5.5 fL (7.4-10.4); Monocytes 6 % (0-10); Neutrophil 87 % (42-75); Platelet Count 185 thou/uL (130-400); RBC Distribution Width 14.1 % (11.5-14.5); Red Blood Cell (RBC) Count 3.96 mill/uL (4.20-5.40); White Blood Cell (WBC) Count 9.7 thou/uL (4.8-10.8)
[2018-12-08] MEDS ORDERED: Adacel (T-DAP) 0.5 ML SYRINGE ONE (15:29)
[2018-12-08 16:13] VITALS: BMI 26.1
[2018-12-08] MEDS: Acetaminophen 325 MG TAB PO PRN (16:55)
[2018-12-08] MEDS ORDERED: Benzonatate 100 MG CAP PO PRN (17:31)
[2018-12-08] MEDS ORDERED: Acetaminophen 325 MG TAB PO PRN (17:31)
[2018-12-08] MEDS ORDERED: Zolpidem Tartrate 5 MG TAB PO PRN (17:31)
[2018-12-08] MEDS ORDERED: Lorazepam 0.5 MG TAB PO PRN (17:31)
[2018-12-08] MEDS ORDERED: HumaLOG 300 UNITS/3 ML VIAL SC PRN ×2 (17:34)
[2018-12-08] MEDS ORDERED: Dextrose 50% Abboject 50 ML SYRINGE SLOW IVP PRN (17:34)
[2018-12-08] MEDS ORDERED: Dextrose 5% in Water 1,000 ML IV PRN (17:34)
[2018-12-08] MEDS: HYDROcodone/Acetaminophen 5/325 mg Tablet PO PRN (19:56)
[2018-12-08] MEDS: Piperacillin/Tazobactam 3.375 GM in Sodium Chloride 0.9% 100 ML IVPB SCH (20:58)
[2018-12-08] MEDS: cloNIDine 0.1 MG TAB PO SCH (20:59)
[2018-12-08] MEDS: Potassium Chloride 20 MEQ TAB PO SCH (20:59)
[2018-12-08] MEDS: Metoprolol Tartrate 25 MG TAB PO SCH (20:59)
[2018-12-08] MEDS ORDERED: hydrOXYzine 25 MG TAB PO PRN (22:19)
[2018-12-09] MEDS: Piperacillin/Tazobactam 3.375 GM in Sodium Chloride 0.9% 100 ML IVPB SCH ×4 (03:09→21:20)
[2018-12-09 05:19] LABS: Anion Gap 14 mmol/L (10-20); BUN (Urea Nitrogen) 21 mg/dL (9.8-20.1); Calc. Creatinine Clearance 51 mL/min (70-130); Calcium 8.6 mg/dL (7.8-10.44); Carbon Dioxide 28 mmol/L (23-31); Chloride 98 mmol/L (98-107); Estimated GFR-MDRD 52; Glucose 116 mg/dL (83-110); Sodium 136 mmol/L (136-145)
[2018-12-09 08:27] LABS: #Eosinphils 0.1 thou/uL (0.0-0.7); #Lymphocytes 0.5 thou/uL (1.20-3.40); #Monocytes 0.4 thou/uL (0.11-0.59); %Basophils 0.5 % (0.0-1.0); %Eosinophils 1.7 % (0.0-10.0); %Lymphocytes 10.7 % (21.0-51.0); %Neutrophils 79.1 % (42.0-75.0); Hemoglobin 10.2 g/dL (12.0-16.0); Mean Corpuscular HGB CONC 32.7 g/dL (32.0-36.0); Mean Corpuscular Hemoglobin 28.5 pg (27.0-31.0); Mean Corpuscular Volume 87.2 fL (78.0-98.0); Mean Platelet Volume 6.2 fL (7.4-10.4); Platelet Count 150 thou/uL (130-400); RBC Distribution Width 14.2 % (11.5-14.5); Red Blood Cell (RBC) Count 3.56 mill/uL (4.20-5.40); White Blood Cell (WBC) Count 5.1 thou/uL (4.8-10.8)
[2018-12-09] MEDS: Ferrous Sulfate 325 MG TAB PO SCH (08:39)
[2018-12-09] MEDS: cloNIDine 0.1 MG TAB PO SCH ×2 (08:40→20:30)
[2018-12-09] MEDS: Dronedarone HCl 400 MG TAB PO SCH ×2 (08:40→16:55)
[2018-12-09] MEDS: Magnesium Oxide 400 MG TAB PO SCH ×2 (08:41→16:56)
[2018-12-09] MEDS: Potassium Chloride 20 MEQ TAB PO SCH ×2 (08:41→20:29)
[2018-12-09] MEDS: Lisinopril 20 MG TAB PO SCH (08:42)
[2018-12-09] MEDS: Simvastatin 5 MG TAB PO SCH (08:43)
[2018-12-09] MEDS: Furosemide 20 MG TAB PO SCH (08:43)
[2018-12-09] MEDS: Metoprolol Tartrate 25 MG TAB PO SCH ×2 (08:43→20:29)
[2018-12-09] MEDS: PARoxetine 20 MG TAB PO SCH (08:44)
[2018-12-09] MEDS ORDERED: Prevnar 13-Val Conj/PF 0.5 ML SYRINGE IM ONE (09:00)
--- NOTE | 2018-12-10 00:13 | HP ---
CHIEF COMPLAINT: Redness and warmth of the left upper extremity after a cat bite. HISTORY OF PRESENT ILLNESS: Ms. Gunderson is a 73-year-old female with a past medical history of non-small cell carcinoma of the lung on the right, currently felt to be in remission and a previous second primary of left breast cancer that was T2 N3 M0, triple negative, status post chemo and radiation in 2009 followed by left axillary lymph node dissection in 2010, who presented to the emergency room after acute onset of erythema and warmth to the left wrist extending up the arm yesterday morning. On the morning of admission, she reportedly was caring for her daughter's cats while she was on a work related trip and experienced puncture wounds x3 or x4 to the left hand on December 06. Due to the rapid progression, she presented to the emergency room here for further evaluation. The patient has a history most recently of non-small cell carcinoma of the lung on the right, followed by Dr. Golden with Oncology. She recently had a restaging CT scan of the chest on December 01 that showed a similar appearing examination. Specifically, it did note a stable irregular hypodense mass in the left axillary region with overlying skin thickening that was present that were thought to be possibly related to postradiation changes secondary to radiation therapy of the left breast lesion and clinical correlation was recommended. She has surgical clips in the left axilla as well. The results have not yet been given to the patient. She normally expects a call after it is performed, but has not heard anything as of yet. PAST MEDICAL HISTORY: 1. Non-small cell carcinoma of the lung on the right. 2. Left breast cancer, T2 N3 M0, triple negative, status post chemo and radiation in 2009. 3. Hypertension. 4. Anxiety. 5. Adenocarcinoma of sigmoid colon, T3 N0 M0. 6. Type 2 diabetes. 7. Hyperlipidemia. 8. Recurrent urinary tract infections. 9. Microalbuminuria. 10. Iron-deficiency anemia. 11. Paroxysmal atrial fibrillation, who is not a candidate for anticoagulation, but on antiarrhythmic therapy. 12. Systolic congestive heart failure. 13. Moderate aortic regurgitation. 14. Anemia of chronic disease. 15. Cervical degenerative disease followed by Dr. Leal with a recent cervical epidural steroid injection last week. 16. History of thoracic compression fracture, status post kyphoplasty. 17. Chronic hyponatremia with baseline sodium of about 132. 18. Chronic kidney disease, stage 3. PAST SURGICAL HISTORY: 1. Cholecystectomy in 2006. 2. Hysterectomy in 1988. 3. Left breast lumpectomy and axillary node dissection in July 2010. 4. Lap right hemicolectomy for severe appendicitis, December 2010. 5. Lap low anterior resection for colon cancer in March 2011. 6. Kyphoplasty, October 2017. ALLERGIES: TO IODINATED CONTRAST AND SULFA. SOCIAL HISTORY: The patient is a nonsmoker. She denies alcohol or illicit drug use. She lives alone in [place], but has a very active asbvlaxh-tb-tev, who lives here locally and a daughter who lives within a couple of hours of her. She does not have a medical power of commercial litigation attorney or advance directives indicated; however, she reports that she wants removal of life support in the event of a terminal illness, but, however, wants to be full code. FAMILY HISTORY: Father is and had a history of diabetes. She had a younger brother with brain tumor, older brother with chronic anemia, and daughter who had cervical cancer. MEDICATIONS: 1. Lasix 20 mg daily. 2. DuoNeb 3 mL neb q.6 hours. 3. Tylenol 650 mg p.o. q.4 hours p.r.n. 4. Tessalon 100 mg p.o. t.i.d. p.r.n. 5. Feosol 325 mg p.o. daily. 6. Paxil 20 mg p.o. daily. 7. Metformin ER 1000 mg p.o. at bedtime. 8. Hydrocodone/acetaminophen 5/325 one p.o. q.6 hours p.r.n. 9. Zolpidem 5 mg p.o. at bedtime p.r.n. 10. Zestril 40 mg p.o. daily. 11. Multaq 400 mg p.o. b.i.d. 12. Lovastatin 20 mg p.o. q.a.m. 13. Potassium chloride 20 mEq p.o. b.i.d. 14. Magnesium oxide 200 mg p.o. b.i.d. 15. Metoprolol tartrate 50 mg p.o. b.i.d. 16. Clonidine 0.1 mg p.o. b.i.d. 17. Lorazepam 0.5 mg p.o. q.4 hours p.r.n. anxiety. REVIEW OF SYSTEMS: GENERAL: Has had just low-grade fever, nothing greater than 100.4. No chills. No fatigue. HEENT: Denies sore throat, rhinorrhea, ear pain, or vision changes. RESPIRATORY: The patient has a chronic sometimes productive cough and occasional shortness of breath with exertion, but is not O2 dependent and is followed by Dr. Rivas. She denies any increase in cough or change in her sputum. Denies hemoptysis. CARDIOVASCULAR: Denies chest pain, palpitations, orthopnea, or PND. GASTROINTESTINAL: Denies nausea, vomiting, diarrhea, constipation, or abdominal pain. GENITOURINARY: Denies dysuria, frequency, urgency, or gross hematuria. LYMPHATIC: The patient did have some recent bilateral lower extremity edema for which Carli Chavez, the nurse Practitioner in our clinic had ordered outpatient treatment. However, she strangely reports this improved after her recent epidural steroid injection with Dr. Leal and resolved completely. She does have a history of left axillary lymph node dissection, but does not normally have swelling to that upper extremity. PSYCHIATRIC: The patient has some anxiety and history of depression in the past. NEUROLOGIC: The patient denies numbness, paresthesias, focal weakness, or diplopia. PHYSICAL EXAMINATION: VITAL SIGNS: In the ER, blood pressure 139/81, pulse 64, O2 saturation 94% on room air, respirations 18, temperature 98.5, pain 8/10 in the left upper extremity. On my exam yesterday, temp 99.3, pulse 62, respirations 20, 96% of O2 saturation on 2 L nasal cannula, and blood pressure 157/72. GENERAL: Well-developed, well-nourished female, in no acute distress. Alert and oriented x4. Nasal cannula in place. HEENT: Normocephalic, atraumatic. Pupils equal, round, reactive to light and accommodation. Extraocular muscles intact bilaterally. Nares are patent without discharge. Tongue protrudes in midline. NECK: Supple without lymphadenopathy, thyromegaly, JVD, or bruit. HEART: Regular rate and rhythm with distant heart sounds. Normal S1, S2. No murmurs, clicks, rubs, or gallops. LUNGS: With coarse breath sounds throughout and rhonchi in right upper lobe, baseline exam. No increased work of breathing, speaks in complete sentences. ABDOMEN: Positive bowel sounds in all four quadrants. Soft, nontender, and nondistended. No masses, guarding, or rebound tenderness. EXTREMITIES: No cyanosis, clubbing, or edema to the lower extremities. The left upper extremity has approximately three puncture wounds on the dorsum of the hand and a couple on the palmar aspect of the hand as well without any surrounding erythema or induration but has erythema, warmth from the wrist extending all way to the left axillary region of the arm, sparing a circular area of the antecubital fossa with Peau d'orange appearance to the dependent portions. NEUROLOGIC: Cranial nerves 2 through 12 grossly intact. No focal deficits. LABORATORY DATA: White count 9.7 with 87% neutrophils and 6% lymphocytes, hemoglobin 11.0, hematocrit 35, platelets 185. D-dimer 0.62, which is high. Sodium 134, potassium 3.5, chloride 94, bicarb 29, BUN 21, creatinine 0.96, glucose 115, lactic acid 1.2, calcium 9.3, AST 10, ALT 10, albumin 4.2. Blood cultures x2 are pending. ASSESSMENT AND PLAN: 1. Left upper extremity cellulitis, status post cat bite. This is suspected to be the source of the infection. Therefore, the patient has been started on Zosyn. We will try to elevate the extremity and we have outlined the area of erythema. Since her circulation is diminished on this side, she has hypercoagulable state and recently had injury. We will also consider getting a venous Doppler of this extremity to rule out deep venous thrombosis. Currently, ultrasound is not available, but hopefully we will have that later this week. 2. Non-small cell lung cancer of the right lung. I will try to touch base with Dr. Golden regarding her recent CT scan if unable. We can give her O2 if needed but in the past, Dr. Rivas has stated that she really did not need it unless her oxygen saturation dropped less than 88%. 3. Hypertension. The patient's antihypertensive regimen will be continued and she will be monitored while hospitalized. 4. Paroxysmal atrial fibrillation. The patient is currently on Multaq and has been deemed not to be a candidate for anticoagulation given her past history of hemoptysis from the lung mass. 5. Iron-deficiency anemia. The patient will be continued on her iron regimen. 6. Anxiety. I am going to continue her lorazepam. 7. Congestive heart failure, chronic. I am going to continue her diuretics and electrolytes per her regimen. 8. Type 2 diabetes. Will hold the patient's metformin pending any additional studies that might need to be given although the patient is allergic to contrast, so she would have any contrast media administered in [place] if needed. We will place her on hyperglycemia algorithm with mild bedtime correction lispro. 9. Hyperlipidemia. The patient will be continued on her statin therapy. 10. Prophylaxis. We will give the patient Pepcid and SCDs. 11. The patient desires full code status. Job ID: [id number]
[2018-12-10] MEDS: Piperacillin/Tazobactam 3.375 GM in Sodium Chloride 0.9% 100 ML IVPB SCH ×4 (02:00→20:44)
[2018-12-10] MEDS: Acetaminophen 325 MG TAB PO PRN (08:38)
[2018-12-10] MEDS: Metoprolol Tartrate 25 MG TAB PO SCH ×2 (08:39→20:46)
[2018-12-10] MEDS: Lisinopril 20 MG TAB PO SCH (08:39)
[2018-12-10] MEDS: PARoxetine 20 MG TAB PO SCH (08:39)
[2018-12-10] MEDS: Dronedarone HCl 400 MG TAB PO SCH ×2 (08:39→16:03)
[2018-12-10] MEDS: Magnesium Oxide 400 MG TAB PO SCH ×2 (08:40→16:02)
[2018-12-10] MEDS: Furosemide 20 MG TAB PO SCH (08:40)
[2018-12-10] MEDS: Ferrous Sulfate 325 MG TAB PO SCH (08:41)
[2018-12-10] MEDS: Potassium Chloride 20 MEQ TAB PO SCH ×2 (08:41→20:46)
[2018-12-10] MEDS: Simvastatin 5 MG TAB PO SCH (08:41)
[2018-12-10] MEDS: cloNIDine 0.1 MG TAB PO SCH ×2 (08:42→20:46)
[2018-12-10] MEDS ORDERED: Prevnar 13-Val Conj/PF 0.5 ML SYRINGE IM ONE (09:00)
[2018-12-10] MEDS: HYDROcodone/Acetaminophen 5/325 mg Tablet PO PRN (12:03)
[2018-12-11] MEDS: Piperacillin/Tazobactam 3.375 GM in Sodium Chloride 0.9% 100 ML IVPB SCH ×4 (03:31→20:17)
[2018-12-11] MEDS: Acetaminophen 325 MG TAB PO PRN (04:50)
[2018-12-11] MEDS: HYDROcodone/Acetaminophen 5/325 mg Tablet PO PRN (08:15)
[2018-12-11] MEDS: Magnesium Oxide 400 MG TAB PO SCH ×2 (08:19→16:19)
[2018-12-11] MEDS: Potassium Chloride 20 MEQ TAB PO SCH ×2 (08:19→20:16)
[2018-12-11] MEDS: Furosemide 20 MG TAB PO SCH (08:20)
[2018-12-11] MEDS: cloNIDine 0.1 MG TAB PO SCH ×2 (08:20→20:16)
[2018-12-11] MEDS: Metoprolol Tartrate 25 MG TAB PO SCH ×2 (08:20→20:16)
[2018-12-11] MEDS: Simvastatin 5 MG TAB PO SCH (08:20)
[2018-12-11] MEDS: Dronedarone HCl 400 MG TAB PO SCH ×2 (08:20→16:20)
[2018-12-11] MEDS: PARoxetine 20 MG TAB PO SCH (08:21)
[2018-12-11] MEDS: Lisinopril 20 MG TAB PO SCH (08:21)
[2018-12-11] MEDS: Ferrous Sulfate 325 MG TAB PO SCH (08:21)
[2018-12-12] MEDS: Piperacillin/Tazobactam 3.375 GM in Sodium Chloride 0.9% 100 ML IVPB SCH ×3 (03:19→15:33)
[2018-12-12] MEDS: PARoxetine 20 MG TAB PO SCH (09:14)
[2018-12-12] MEDS: Lisinopril 20 MG TAB PO SCH (09:14)
[2018-12-12] MEDS: Ferrous Sulfate 325 MG TAB PO SCH (09:14)
[2018-12-12] MEDS: Potassium Chloride 20 MEQ TAB PO SCH (09:14)
[2018-12-12] MEDS: Metoprolol Tartrate 25 MG TAB PO SCH (09:15)
[2018-12-12] MEDS: Furosemide 20 MG TAB PO SCH (09:15)
[2018-12-12] MEDS: Simvastatin 5 MG TAB PO SCH (09:15)
[2018-12-12] MEDS: cloNIDine 0.1 MG TAB PO SCH (09:15)
[2018-12-12] MEDS: Magnesium Oxide 400 MG TAB PO SCH ×2 (09:16→16:39)
[2018-12-12] MEDS: Dronedarone HCl 400 MG TAB PO SCH ×2 (09:16→16:38)
[2018-12-12] MEDS: HYDROcodone/Acetaminophen 5/325 mg Tablet PO PRN (09:48)
[2018-12-12 18:45] VITALS: BP 159/70; TEMP 98.4
== END 2018-12-12 18:10 | disposition home or self-care (01) | DRG 603 ==
LOC: BURERS 13:45 → BURMED 15:00
PROVIDERS: ADMIT Family Medicine; ATTEND Family Medicine
DX: L03.114 Cellulitis of left upper limb (principal); I13.0 Hypertensive heart and chronic kidney disease with heart failure and stage 1 through stage 4 chronic kidney disease, or unspecified chronic kidney disease; I50.22 Chronic systolic (congestive) heart failure; D50.9 Iron deficiency anemia, unspecified; E11.22 Type 2 diabetes mellitus with diabetic chronic kidney disease; F41.9 Anxiety disorder, unspecified; E78.5 Hyperlipidemia, unspecified; I48.0 Paroxysmal atrial fibrillation; N18.3 Chronic kidney disease, stage 3 (moderate); Z90.49 Acquired absence of other specified parts of digestive tract; Z85.118 Personal history of other malignant neoplasm of bronchus and lung; Z85.3 Personal history of malignant neoplasm of breast; Z90.710 Acquired absence of both cervix and uterus; Z85.038 Personal history of other malignant neoplasm of large intestine; Z88.0 Allergy status to penicillin; Z91.041 Radiographic dye allergy status; Z79.84 Long term (current) use of oral hypoglycemic drugs; Z79.899 Other long term (current) drug therapy
CPT/HCPCS: 36415; 36416; 80048; 80053; 83605; 85025; 85379; 87040; 90471; 90670; 90715; 96365; G0009; J2543; J3490; J7620

== ENCOUNTER 2019-01-29 12:27 | Emergency (ER) | payer MEDICARE, OTHER ==
--- NOTE | 2019-01-29 15:13 | RAD ---
CHEST 2 VIEWS: Date: 01/29/19 Comparison made with a 12/04/18 CT and a 06/06/18 chest film. The mass density in the right paratracheal region is noted as usual, along with haziness over the rig ht upper chest, which is presumed to be partially atelectasis and/or postobstructive pneumonitis. It has changed minimally over the interval. The lungs around the left heart border show some minor strea lai, more so than before. A minimal lingular infiltrate is possible. Lungs are otherwise clear. Ther e are no large effusions. The heart size is normal. IMPRESSION: 1. COPD. 2. Known right paratracheal/perihilar mass with resulting atelectasis and potentially postobstructiv e pneumonitis. The appearance of this area has not changed greatly over time. 3. Slight increase in lingular lung markings. Minimal lingular infiltrate is possible. POS: HOME
== END 2019-01-29 13:35 | disposition home or self-care (01) ==
LOC: BURERS 12:27
DX: J06.9 Acute upper respiratory infection, unspecified (principal); I11.0 Hypertensive heart disease with heart failure; I50.9 Heart failure, unspecified; I49.9 Cardiac arrhythmia, unspecified; I48.91 Unspecified atrial fibrillation; E11.9 Type 2 diabetes mellitus without complications; D50.9 Iron deficiency anemia, unspecified; E78.2 Mixed hyperlipidemia; F41.9 Anxiety disorder, unspecified; Z87.891 Personal history of nicotine dependence; Z79.899 Other long term (current) drug therapy; Z79.84 Long term (current) use of oral hypoglycemic drugs
CPT/HCPCS: 71046

== ENCOUNTER 2019-02-15 10:47 | Emergency (ER) | payer MEDICARE, OTHER | END 2019-02-15 11:22 | disposition home or self-care (01) | LOC: BURERS 10:47 | DX: F41.1 Generalized anxiety disorder (principal); I48.91 Unspecified atrial fibrillation; E11.9 Type 2 diabetes mellitus without complications; I11.0 Hypertensive heart disease with heart failure; I50.9 Heart failure, unspecified; D50.9 Iron deficiency anemia, unspecified; E78.5 Hyperlipidemia, unspecified; J44.9 Chronic obstructive pulmonary disease, unspecified; E78.1 Pure hyperglyceridemia; Z87.891 Personal history of nicotine dependence; Z79.84 Long term (current) use of oral hypoglycemic drugs; Z79.891 Long term (current) use of opiate analgesic; Z79.1 Long term (current) use of non-steroidal anti-inflammatories (NSAID) | CPT/HCPCS: 99283 ==

== ENCOUNTER 2019-03-15 13:41 | Outpatient (CLI) | payer MEDICARE, OTHER ==
--- NOTE | 2019-03-15 14:22 | RAD ---
EXAM: 5 views of the cervical spine HISTORY: Neck pain COMPARISON: None FINDINGS: AP, lateral, flexion/extension, and open mouth odontoid views of the cervical spine shows n ormal height and alignment of the vertebral bodies without fracture or subluxation. Moderate diffuse degenerative changes are seen with intervertebral disc space narrowing and osteophyte formati on, most prominent in the mid cervical spine. No prevertebral soft tissue swelling is seen. Alignment is unchanged with flexion and extension. IMPRESSION: Moderate degenerative changes of the cervical spine with unchanged alignment with bending .
== END 2019-03-15 13:42 | disposition home or self-care (01) ==
LOC: BURRAD 13:41
PROVIDERS: ATTEND Neurological Surgery
DX: M47.22 Other spondylosis with radiculopathy, cervical region (principal)
CPT/HCPCS: 72050